=== PATIENT | female | born 1955 | race Caucasian/White ===

== ENCOUNTER 2020-11-18 10:55 | Outpatient (REF) | payer MEDICARE, MEDICAID, SELFPAY ==
--- NOTE | ~2020-11-18 | XR_ITS ---
EXAMINATION: XR CHEST CLINICAL INFORMATION: COPD with exacerbation COMPARISON: Chest 01/24/2009 TECHNIQUE: 2 views of the chest were obtained. FINDINGS: Both lungs are fairly well-expanded and clear of acute process. There is mild peribronchial thickening in both lungs slightly greater right with likely minimal bronchiectasis. The heart size and pulmonary vascularity is normal. No gross bony abnormality seen. XR/XR chest 2V IMPRESSION: No acute infiltrate. Mild peribronchial thickening and minimal bronchiectasis suggestive of bronchitis or bronchial airway disease.
== END 2020-11-18 10:56 | disposition home or self-care (01) ==
LOC: HO.XRAY 10:55
PROVIDERS: PCP Internal Medicine Geriatric Medicine; Visit Provider Internal Medicine Geriatric Medicine
DX: J44.1 Chronic obstructive pulmonary disease with (acute) exacerbation (principal); J44.9 Chronic obstructive pulmonary disease, unspecified
CPT/HCPCS: 71046

== ENCOUNTER → 2020-12-31 14:24 | Outpatient (BNV) | payer MEDICARE, MEDICAID, SELFPAY | PROVIDERS: PCP Internal Medicine Geriatric Medicine; Referring Provider Internal Medicine Geriatric Medicine; Visit Provider Internal Medicine Medical Oncology | DX: D75.1 Secondary polycythemia (principal); F17.210 Nicotine dependence, cigarettes, uncomplicated | CPT/HCPCS: 99203; 99213; 99214 ==

== ENCOUNTER 2021-01-02 10:23 | Outpatient (REF) | payer MEDICARE, MEDICAID, SELFPAY | END 2021-01-02 10:24 | disposition home or self-care (01) | LOC: HO.BBR 10:23 | PROVIDERS: Visit Provider Internal Medicine Medical Oncology | DX: D75.1 Secondary polycythemia (principal) | CPT/HCPCS: 85014; 85018; 99195 ==

== ENCOUNTER → 2021-01-13 10:30 | Outpatient (BNVA) | payer MEDICARE, MEDICAID, SELFPAY | PROVIDERS: PCP Internal Medicine Geriatric Medicine; Visit Provider Internal Medicine | DX: J44.9 Chronic obstructive pulmonary disease, unspecified (principal); D45 Polycythemia vera; F17.200 Nicotine dependence, unspecified, uncomplicated | CPT/HCPCS: 99202 ==

== ENCOUNTER 2021-01-24 14:00 | Outpatient (REF) | payer MEDICARE, MEDICAID, SELFPAY ==
--- NOTE | ~2021-01-24 | CT_ITS ---
EXAMINATION: CT CHEST SCREENING CLINICAL INFORMATION: Smoking history. Current smoker. 40 pack-year history. COMPARISON: Previous chest x-ray October 2020 TECHNIQUE: Multidetector volumetric CT imaging of the chest is performed without contrast using low dose technique. Additional 2-D coronal and sagittal reformatted images and axial 3-D maximum intensity projection (MIP) images are generated on the CT workstation. This CT examination was performed using dose optimization techniques as appropriate, variously including the following: *Automated exposure control *Adjustment of mA and/or kV according to patient size (this includes techniques or standardized protocols for targeted exams where dose is matched to indication/reason for exam; i.e. extremities or head) *Use of iterative reconstruction technique DLP: 241 mGy-cm FINDINGS: LUNGS: There is a 3 mm calcified right lower lobe nodule axial image 168 series 4. MEDIASTINUM: There is evidence of atherosclerotic disease and coronary artery calcification. The mediastinum is otherwise normal. PLEURA: There is no pleural effusion. No pleural mass or thickening. AXILLA: No lymphadenopathy. UPPER ABDOMEN: There is a 2 cm low-attenuation lesion in the upper pole of the left kidney probably representing a cyst. OSSEOUS STRUCTURES: There are degenerative changes of the spine. CT/CT lung screening IMPRESSION: Small calcified pulmonary nodule. Mild atherosclerotic disease and coronary artery calcification. ASSESSMENT: Lung-RADS category 2: Benign. RECOMMENDATION: Annual low-dose chest CT followup recommended.
== END 2021-01-24 14:01 | disposition home or self-care (01) ==
LOC: HO.CT 14:00
PROVIDERS: Visit Provider Physician Assistant Medical
DX: Z12.2 Encounter for screening for malignant neoplasm of respiratory organs (principal); F17.210 Nicotine dependence, cigarettes, uncomplicated
CPT/HCPCS: 71271; G0296

== ENCOUNTER 2021-01-28 10:56 | Outpatient (REF) | payer MEDICARE, MEDICAID, SELFPAY ==
--- NOTE | 2021-01-28 13:23 | PFT_ITS ---
FLOWS: FEV1 55% of predicted at 1.24 L. FVC 55% of predicted at 1.63 L. FEV1 to FVC ratio of 0.76. Positive bronchodilator response. LUNG VOLUMES: Total lung capacity 85% of predicted at 4.07 L. Residual volume 129% of predicted at 2.57 L. Slow vital capacity 54% of predicted at 1.50 L. Expiratory reserve volume 10% of predicted at 0.08 L. Diffusion capacity is moderately decreased, diffusion capacity adjusted to normal after correction for alveolar ventilation. IMPRESSION: No obstructive or restrictive ventilatory defect. Positive bronchodilator response. Increased residual volume suggests air trapping. Decreased expiratory reserve volume suggests extrathoracic restriction likely secondary to abdominal obesity. Declan Valdez MD AP/MODL / [phone]
== END 2021-01-28 10:57 | disposition home or self-care (01) ==
LOC: HO.RESP 10:56
PROVIDERS: Visit Provider Internal Medicine
DX: J44.9 Chronic obstructive pulmonary disease, unspecified (principal); F17.200 Nicotine dependence, unspecified, uncomplicated; D45 Polycythemia vera
CPT/HCPCS: 94060; 94727; 94729

== ENCOUNTER 2021-02-06 10:04 | Outpatient (REF) | payer MEDICARE, MEDICAID, SELFPAY | END 2021-02-06 10:05 | disposition home or self-care (01) | LOC: HO.BBR 10:04 | PROVIDERS: PCP Internal Medicine Geriatric Medicine; Visit Provider Internal Medicine Medical Oncology | DX: D75.1 Secondary polycythemia (principal) | CPT/HCPCS: 85014; 85018; 99195 ==

== ENCOUNTER → 2021-02-12 11:18 | Outpatient (BNVA) | payer MEDICARE, MEDICAID, SELFPAY | PROVIDERS: PCP Internal Medicine Geriatric Medicine; Visit Provider Internal Medicine | DX: J44.9 Chronic obstructive pulmonary disease, unspecified (principal); F17.200 Nicotine dependence, unspecified, uncomplicated | CPT/HCPCS: 99212 ==

== ENCOUNTER 2021-03-10 10:30 | Outpatient (REF) | payer MEDICARE, MEDICAID, SELFPAY | END 2021-03-10 10:31 | disposition home or self-care (01) | LOC: HO.BBR 10:30 | PROVIDERS: Visit Provider Internal Medicine Medical Oncology | DX: D75.1 Secondary polycythemia (principal) | CPT/HCPCS: 85018; 99195 ==

== ENCOUNTER 2021-04-09 10:11 | Outpatient (REF) | payer MEDICARE, MEDICAID, SELFPAY | END 2021-04-09 10:12 | disposition home or self-care (01) | LOC: HO.BBR 10:11 | PROVIDERS: Visit Provider Internal Medicine Medical Oncology | DX: D75.1 Secondary polycythemia (principal) | CPT/HCPCS: 85014; 85018; 99195 ==

== ENCOUNTER 2021-05-15 10:04 | Outpatient (REF) | payer MEDICARE, MEDICAID, SELFPAY | END 2021-05-15 10:05 | disposition home or self-care (01) | LOC: HO.BBR 10:04 | PROVIDERS: Visit Provider Internal Medicine Medical Oncology | DX: D75.1 Secondary polycythemia (principal) | CPT/HCPCS: 85018; 99195 ==

== ENCOUNTER → 2021-10-22 13:08 | Outpatient (BNVA) | payer MEDICARE, MEDICAID, SELFPAY | PROVIDERS: PCP Internal Medicine Geriatric Medicine; Visit Provider Internal Medicine | DX: J44.9 Chronic obstructive pulmonary disease, unspecified (principal); F17.210 Nicotine dependence, cigarettes, uncomplicated | CPT/HCPCS: 99212 ==

== ENCOUNTER 2021-10-23 11:51 | Outpatient (REF) | payer MEDICARE, MEDICAID, SELFPAY | END 2021-10-23 11:52 | disposition home or self-care (01) | LOC: HO.BBR 11:51 | PROVIDERS: Visit Provider Internal Medicine Medical Oncology | DX: D75.1 Secondary polycythemia (principal) | CPT/HCPCS: 85014; 85018; 99195 ==

== ENCOUNTER 2021-11-20 10:53 | Outpatient (REF) | payer MEDICARE, MEDICAID, SELFPAY | END 2021-11-20 10:54 | disposition home or self-care (01) | LOC: HO.BBR 10:53 | PROVIDERS: Visit Provider Internal Medicine Medical Oncology | DX: D75.1 Secondary polycythemia (principal) | CPT/HCPCS: 85018; 99195 ==

== ENCOUNTER 2021-11-26 08:32 | Inpatient (IN) | payer MEDICARE, MEDICAID, SELFPAY ==
--- NOTE | ~2021-11-26 | CT_ITS ---
EXAMINATION: CT HEAD WITHOUT CONTRAST CLINICAL INFORMATION: Severe headache with weakness. COMPARISON: None TECHNIQUE: Contiguous axial imaging was performed from the skull base to vertex without intravenous administration of contrast. Additional 2-D coronal and sagittal reformatted images are generated on the CT workstation and uploaded to PACS. This CT examination was performed using dose optimization techniques as appropriate, variously including the following: *Automated exposure control *Adjustment of mA and/or kV according to patient size (this includes techniques or standardized protocols for targeted exams where dose is matched to indication/reason for exam; i.e. extremities or head) *Use of iterative reconstruction technique DLP: 683 mGy-cm FINDINGS: There is no intracranial hemorrhage, hematoma, or extra-axial fluid collection. The ventricles are normal in size. There is no hydrocephalus, edema, or mass effect. The ambriz-white matter differentiation appears well preserved . There are incidental bilateral basal ganglia calcifications. There is no visible acute territorial infarct or mass lesion. The calvarium appears intact. There is no pneumocephalus or orbital emphysema. The visualized sinuses and middle ears and mastoid air cells show no significant mucosal thickening. There are no air-fluid levels. CT/CT head/brain wo con IMPRESSION: No acute intracranial abnormality.
--- NOTE | ~2021-11-26 | CT_ITS ---
EXAMINATION: CT ANGIOGRAM HEAD CT ANGIOGRAM NECK CLINICAL INFORMATION: Reason for Exam pontine cva, disection? COMPARISON: Same day noncontrast head CT and MRI of the brain. TECHNIQUE: Test bolus sequences followed by intravenous administration 70 mL of Omnipaque 350. Helical imaging was performed in the axial plane from the aortic arch to the skull vertex. Delayed postcontrast imaging of the head was also performed. The data was processed at the mineral technologist's workstation for generation of MIP sequences. Angled MIPs and volume rendered reformatted images were also generated at an offline 3D workstation. Stenoses are assessed in accordance with NASCET criteria unless otherwise indicated. DLP: 1685 mGy-cm This CT examination was performed using dose optimization techniques as appropriate, variously including the following: *Automated exposure control. *Adjustment of mA and/or kV according to patient size (this includes techniques or standardized protocols for targeted exams where dose is matched to indication/reason for exam; i.e. extremities or head). *Use of iterative reconstruction technique. FINDINGS: CT Head: There is no evidence of acute intracranial hemorrhage or edematous territorial infarction. Acute left ventral pontine infarct is not well visualized by CT. A few foci of hypoattenuation in the periventricular and deep white matter are consistent with mild microangiopathy. Jaramillo-white matter differentiation is preserved. The ventricles are normal in size and configuration. No evidence for obstructive hydrocephalus. No abnormal mass effect or midline shift. No extra-axial fluid collections. No pathologic intra-axial enhancement or regional oligemia. No acute soft tissue or osseous abnormalities. The mastoid air cells and paranasal sinuses are clear. Left petrous apex fluid. Periapical lucencies involving the right mandibular incisors. CT Neck: The thyroid gland and remaining cervical soft tissues are within normal limits. Mild multilevel cervical spondylosis. CT Upper Chest: The visualized lung apices and upper mediastinum are within normal limits. Neck CTA: Aortic Arch: Normal contour and caliber. Classic 3 vessel branching pattern of the aortic arch. Great Vessel Origins: No significant stenosis of the branch origins. Right Common Carotid Artery: No focal stenosis or occlusion. Cervical Right Internal Carotid Artery: Calcific atherosclerotic disease of the carotid bulb and proximal internal carotid artery causing less than 50% stenosis. Proximal retropharyngeal course. Left Common Carotid Artery: No focal stenosis or occlusion. Cervical Left Internal Carotid Artery: Calcific atherosclerotic disease of the carotid bulb and proximal internal carotid artery resulting in approximately 60% stenosis. Proximal retropharyngeal course. Cervical Right Vertebral Artery: No focal stenosis or occlusion. Cervical Left Vertebral Artery: No focal stenosis or occlusion. Brain CTA: Intracranial Internal Carotid Arteries: No focal stenosis or occlusion. 3 mm inferiorly projecting aneurysm versus infundibulum of the supraclinoid left ICA (series 6 image 347) Right Anterior Cerebral Artery: Normal A1 segment. Normal opacification of the distal ALON segments. Left Anterior Cerebral Artery: Normal A1 segment. Normal opacification of the distal ALON segments. Anterior Communicating Artery: Normal. Right Middle Cerebral Artery: Normal M1 segment of the MCA without focal stenosis or occlusion. Normal arborization of the distal segments. Left Middle Cerebral Artery: Normal M1 segment of the MCA without focal stenosis or occlusion. Normal arborization of the distal segments. Right Vertebral Artery: Normal V4 segment. Left Vertebral Artery: Normal V4 segment. Basilar Artery: Normal without focal stenosis or occlusion. Normal appearance of the proximal superior cerebellar arteries. Right Posterior Cerebral Artery: Normal P1 segment. Normal opacification of the distal DIGITAL DEVELOPER segments. Left Posterior Cerebral Artery: Normal P1 segment. Normal opacification of the distal DIGITAL DEVELOPER segments. Normal opacification of the superior sagittal, straight, transverse, and sigmoid sinuses. CT/CT angio head neck IMPRESSION: No arterial high-grade stenosis, large vessel occlusion, or dissection in the head or neck. Moderate stenosis of the left ICA origin related to calcified atherosclerotic disease with approximately 60% narrowing. 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
--- NOTE | ~2021-11-26 | MR_ITS ---
EXAMINATION: MR BRAIN WITHOUT CONTRAST CLINICAL INFORMATION: Posterior circulation cerebrovascular accident. Family history of multiple sclerosis. Severe headache. COMPARISON: CT head from 11/26/2021. TECHNIQUE: MRI of the brain was obtained using routine sequences without contrast. FINDINGS: Region of restricted diffusion within the left ventral lara. No evidence of hemorrhagic conversion. Associated T2 FLAIR hyperintensity in this location. No additional restricted diffusion. No evidence of acute or chronic hemorrhagic products on heme-sensitive imaging. Scattered periventricular, deep white matter, and brainstem T2 FLAIR hyperintensities most commonly seen with moderate underlying microangiopathy. Proportional prominence of the ventricles and sulcal spaces without evidence of obstructive hydrocephalus. No abnormal mass effect. No midline shift. Normal appearance of the pituitary gland. Normal positioning of the cerebellar tonsils. Normal arterial and venous vascular flow voids are present. Normal, homogeneous marrow signal. Mild mucosal thickening of the paranasal sinuses. No signal abnormalities within the mastoids. MR/MR head/brain wo con IMPRESSION: 1. Acute infarct of the left ventral lara. No evidence of hemorrhagic conversion. 2. Moderate underlying white matter disease most commonly seen with microangiopathy.
[2021-11-26 08:41] VITALS: BP 149/80; PULSE 86; RESP 18; TEMP 36.6; O2SAT 98; BMI 30.6
--- NOTE | 2021-11-26 08:47 | ECG_ITS ---
Test Reason : stroke Blood Pressure : / mmHG Vent. Rate : 072 BPM Atrial Rate : 072 BPM P-R Int : 176 ms QRS Dur : 072 ms QT Int : 410 ms P-R-T Axes : 057 046 016 degrees QTc Int : 448 ms Normal sinus rhythm Low voltage QRS Cannot rule out Anterior infarct (cited on or before 26-NOV-2021) Abnormal ECG When compared with ECG of 02-OCT-2013 12:22, No significant change was found Referred By: Generic ED Physician Electronically Signed By:DULCE MARIA KIM
[2021-11-26 10:16] LABS: MANUAL DIFF FLAG NO
[2021-11-26 10:22] LABS: Basophils Absolute Auto 0.1 X10*3/uL (0.0-0.2); Basophils Percent Auto 0.4 % (0-2); Eosinophils Absolute Auto 0.1 X10*3/uL (0.0-0.4); Eosinophils Percent Auto 0.6 % (0-4); Hematocrit 41.6 % (37.0-47.0); Imm Gran Abs Auto 0.08 X10*3/uL (0.00-0.03); Imm Gran Pct Auto 0.6 % (0.0-0.4); Lymphocytes Absolute Auto 2.1 X10*3/uL (1.2-4.9); Lymphocytes Percent Auto 14.3 % (20-40); Mean Corpuscular HGB Conc 33.7 g/dl (31.0-35.0); Mean Corpuscular Hemoglobin 31.5 pg (27.0-33.0); Mean Corpuscular Volume 93.7 fL (80.0-98.0); Mean Platelet Volume 9.6 fL (9.4-12.3); Monocytes Absolute Auto 1.4 X10*3/uL (0.1-1.2); Monocytes Percent Auto 9.7 % (2-11); Neutrophils Absolute Auto 10.8 x10*3/uL (2.0-8.3); Neutrophils Percent Auto 74.4 % (45-73); Platelet Count 301 X10*3/uL (160-400); Red Blood Count 4.44 X10*6/uL (4.20-5.50); Red Cell Distribution Width 15.5 % (11.0-16.0); White Blood Count 14.5 X10*3/uL (4.8-10.8)
[2021-11-26 10:33] LABS: Anion Gap 13 (12-20); Blood Urea Nitrogen 10 mg/dL (9-16); Calcium 8.7 mg/dL (8.4-10.2); Carbon Dioxide 26 mmol/L (22-29); Chloride 101 mmol/L (96-108); Creatinine Clr Calc Pharmacy 75.3; Estimated Glomerular Filt Rate > 60; Glucose Random 100 mg/dL (60-115); Potassium 4.4 mmol/L (3.3-5.1); Sodium 136 mmol/L (135-145)
--- NOTE | 2021-11-26 11:45 | PC.NURSE ---
this nurse went and spoke with patient, her last known well was 7pm last night, pt states she felt fine all day, at 7pm she started sneezing and felt a burning sensation to her left eye and began having a headache, pt states she also had trouble ambulating so just went to bed, this morning pt woke and found that her symptoms continued and felt she should be seen. pt also states she thinks she may have shingles to the left flank
[2021-11-26 12:13] VITALS: BP 162/69; PULSE 71; RESP 13; O2SAT 94
--- NOTE | 2021-11-26 12:29 | ED_ITS ---
HPI - General Adult General Chief complaint: General Medical Stated complaint: quest of stroke Time Seen by Provider: 11/26/21 12:29 Source: patient Mode of arrival: ambulatory Limitations: no limitations History of Present Illness HPI narrative: Patient with history of polycythemia vera was anything in last night around 19:00 noticed the headache on the left frontal area then noticed both legs weak at difficulty in walking no facial droop no upper extremity weakness no nausea vomiting patient went to sleep woke up in the morning still feeling her legs were weak but able to ambulate , but any unsteady on her feet, no headache at this time no speech problem no loss of consciousness no seizure patient does not get headaches very often no facial asymmetry no upper extremity weakness Related Data Home Medications Medication Instructions Recorded Confirmed citalopram 20 mg tablet 1 tab PO DAILY 12/31/20 11/26/21 hydrochlorothiazide 25 mg tablet 1 tab PO DAILY 12/31/20 11/26/21 lisinopril 20 mg tablet 1 tab PO DAILY 12/31/20 11/26/21 albuterol sulfate 90 mcg/actuation 2 puff PO Q4-6H PRN Wheezing 01/13/21 11/26/21 aerosol inhaler (Ventolin HFA) tiotropium bromide 1.25 2 puff PO DAILY 01/13/21 11/26/21 mcg/actuation mist for inhalation (Spiriva Respimat) Previous Rx's Medication Instructions Recorded Advair Diskus 250 mcg-50 mcg/dose 1 ea PO BID #60 ea 10/20/21 powder for inhalation (fluticasone propion-salmeterol) Allergies Allergy/AdvReac Type Severity Reaction Status Date / Time No Known Allergies Allergy Verified 10/22/21 13:25 [No Known Allergies*] Review of Systems Review of Systems: Yes all other systems are reviewed and are negative PMF Past Medical History Medical History Colon polyps COPD (chronic obstructive pulmonary disease) Depression Hypertension Personal history of nicotine dependence Polycythemia vera Shortness of breath Smoker Surgical History History of colonoscopy Family History Family History Mother Diabetes Colon cancer Father Diabetes Emphysema lung Social History Social History Household Members: Children Housing: Apartment Are you a primary hourly caregiver to a significant other at home: No Do you presently have visiting nurse or other home services: No Alcohol intake: never Patient Tobacco Use Status: Current everyday Tobacco user Tobacco use type: Cigarette Cigarette Packs Per Day: 1 Years Smoked: 38 (onset 27 ,1ppd x 38yrs, 35+PYH) Use of substances other than those prescribed or required for medical reasons: No Advance Directives: No Advance Directives Information Provided: No service: No Current occupational status: disabled Physical Exam ED Vital Signs: Vital Signs - 24 hr 11/26/21 08:41 11/26/21 12:13 11/26/21 14:54 Temperature 98 F Pulse Rate 86 71 68 Respiratory Rate 18 13 14 Blood Pressure 149/80 H 162/69 H 133/60 Pulse Oximetry 98 94 92 Oxygen Delivery Method Room Air Room Air Room Air 11/26/21 18:00 Temperature 97.8 F Pulse Rate 82 Respiratory Rate 18 Blood Pressure 151/61 H Pulse Oximetry 92 Oxygen Delivery Method Room Air BMI result Body Mass Index 30.6 Appearance: Alert. Oriented X3. No acute distress. Eyes: PERRLA, No Nystagmus ENT: Pharynx normal. Oral Mucosa moist Neck: Normal inspection. Neck supple. CVS: Normal heart rate and rhythm. Pulses normal. Respiratory: No respiratory distress. Equal air entry bilateral, no wheezing/rales/rhonchi Abdomen: Soft and nontender. Bowel sounds are present, no mass palpable, no CVA tenderness Skin: Skin warm and dry. Normal skin color. Normal skin turgor. Extremities: No lower extremity edema. No calf tenderness Neuro: Oriented X 3. No motor deficit. No sensory deficit.No cerebellar signs , cranial nerves II-XII intact unsteady gait when asked to ambulate walking a broad-based NIH Stroke Scale Time: 12:35 Level of Consciousness: Alert Level of Consciousness Questions: Answers both questions correctly Level of Consciousness Commands: Performs both tasks correctly Best Gaze: Normal Visual: No visual loss Facial Palsy: Normal Motor Arm (Right): No drift Motor Arm (Left): No drift Motor Leg (Right): No drift Motor Leg (Left): No drift Limb Ataxia: Present in two limbs (lower extremities) Sensory: Normal Best Language: No aphasia Dysarthia: Normal Extinction and Inattention: No abnormality Score: 2 Medical Decision Making MDM Narrative Medical decision making narrative: 15;15 Patient with sudden onset of headache and weakness of the lower extremities basic workup is negative CT scan head negative for CVA when patient asked to ambulate was very off balance walking broad-based no cerebellar signs as such Romberg sign is negative patient daughter has MS will get MRI to rule ou t post circulation CVA/MS/vertebral dissection 1900 patient with acute ventral pontine infarct per MRI no evidence of hemorrhagic conversion. Case discussed with Dr. Bowser advised to do CTA to rule out vertebral dissection 2000: CT head neck negative for vertebral dissection will admit patient for acute pontine stroke out of the window for tPA patient was given aspirin in the ED Lab Data Lab results reviewed: Yes I reviewed the patient's lab results. Result diagrams: 11/26/21 10:10 11/26/21 10:10 Labs: Lab Results 11/26/21 11/26/21 Range/Units 10:10 10:10 WBC 14.5 H (4.8-10.8) X10*3/uL RBC 4.44 (4.20-5.50) X10*6/uL Hgb 14.0 (12.0-16.0) g/dl Hct 41.6 (37.0-47.0) % MCV 93.7 (80.0-98.0) fL MCH 31.5 (27.0-33.0) pg MCHC 33.7 (31.0-35.0) g/dl RDW 15.5 (11.0-16.0) % Plt Count 301 (160-400) X10*3/uL MPV 9.6 (9.4-12.3) fL Immature Gran % (Auto) 0.6 H (0.0-0.4) % Neut % (Auto) 74.4 H (45-73) % Lymph % (Auto) 14.3 L (20-40) % [place] % (Auto) 9.7 (2-11) % Eos % (Auto) 0.6 (0-4) % Baso % (Auto) 0.4 (0-2) % Lymph # (Auto) 2.1 (1.2-4.9) X10*3/uL [place] # (Auto) 1.4 H (0.1-1.2) X10*3/uL Eos # (Auto) 0.1 (0.0-0.4) X10*3/uL Baso # (Auto) 0.1 (0.0-0.2) X10*3/uL Abs Immat Gran (auto) 0.08 H (0.00-0.03) X10*3/uL Absolute Neuts (auto) 10.8 H (2.0-8.3) x10*3/uL Absolute Nucleated RBC 0.000 (0.0-0.012) X10*3/uL Nucleated RBC % (auto) 0.0 (0.0-0.2) /100WBC Sodium 136 (135-145) mmol/L Potassium 4.4 (3.3-5.1) mmol/L Chloride 101 (96-108) mmol/L Carbon Dioxide 26 (22-29) mmol/L Anion Gap 13 (12-20) BUN 10 (9-16) mg/dL Creatinine 0.71 (0.5-1.4) mg/dL Estim Creat Clear Calc 75.3 Estimated GFR > 60 Random Glucose 100 (60-115) mg/dL Calcium 8.7 D (8.4-10.2) mg/dL Imaging Data MRI - head: Attestation: I personally reviewed and interpreted this imaging study as follows: Radiologist's impression: [place] [id number] Magnetic Resonance Report Signed Patient: Nabila Whitlock MR#: [id number] : 1955 Acct:[id number] Age/Sex: 66 / F ADM Date: 11/26/21 Loc: HO.ED Attending Dr: Ordering Physician: Soto Ruiz MD Date of Service: 11/26/21 Procedure(s): MR head/brain wo [facility] Accession Number(s): [id number] cc: Soto Ruiz MD~ EXAMINATION: MR BRAIN WITHOUT CONTRAST CLINICAL INFORMATION: Posterior circulation cerebrovascular accident. Family history of multiple sclerosis. Severe headache.? COMPARISON: CT head from 11/26/2021.? TECHNIQUE: MRI of the brain was obtained using routine sequences without contrast. FINDINGS: Region of restricted diffusion within the left ventral lara. No evidence of hemorrhagic conversion. Associated T2 FLAIR hyperintensity in this location. No additional restricted diffusion. No evidence of acute or chronic hemorrhagic products on heme-sensitive imaging. Scattered periventricular, deep white matter, and brainstem T2 FLAIR hyperintensities most commonly seen with moderate underlying microangiopathy. Proportional prominence of the ventricles and sulcal spaces without evidence of obstructive hydrocephalus. No abnormal mass effect. No midline shift. Normal appearance of the pituitary gland. Normal positioning of the cerebellar tonsils. Normal arterial and venous vascular flow voids are present. Normal, homogeneous marrow signal. Mild mucosal thickening of the paranasal sinuses. No signal abnormalities within the mastoids. MR/MR head/brain wo con IMPRESSION: 1. Acute infarct of the left ventral lara. No evidence of hemorrhagic conversion. 2. Moderate underlying white matter disease most commonly seen with microangiopathy. CT scan - head: Attestation: I personally reviewed and interpreted this imaging study as follows: Radiologist's impression: [place] [id number] CT Scan Report Signed Patient: Nabila Whitlock MR#: [id number] : 1955 Acct:[id number] Age/Sex: 66 / F ADM Date: 11/26/21 Loc: HO.ED Attending Dr: Ordering Physician: Soto Ruiz MD Date of Service: 11/26/21 Procedure(s): CT angio head neck Accession Number(s): [id number] cc: Soto Ruiz MD~ EXAMINATION: CT ANGIOGRAM HEAD CT ANGIOGRAM NECK CLINICAL INFORMATION: Reason for Exam pontine cva, disection? COMPARISON: Same day noncontrast head CT and MRI of the brain. TECHNIQUE: Test bolus sequences followed by intravenous administration 70 mL of Omnipaque 350. Helical imaging was performed in the axial plane from the aortic arch to the skull vertex. Delayed postcontrast imaging of the head was also performed. The data was processed at the chief radiologic technologist's workstation for generation of MIP sequences. Angled MIPs and volume rendered reformatted images were also generated at an offline 3D workstation. Stenoses are assessed in accordance with NASCET criteria unless otherwise indicated. DLP: 1685 mGy-cm This CT examination was performed using dose optimization techniques as appropriate, variously including the following: *Automated exposure control. *Adjustment of mA and/or kV according to patient size (this includes techniques or standardized protocols for targeted exams where dose is matched to indication/reason for exam; i.e. extremities or head). *Use of iterative reconstruction technique. FINDINGS: CT Head: There is no evidence of acute intracranial hemorrhage or edematous territorial infarction. Acute left ventral pontine infarct is not well visualized by CT. A few foci of hypoattenuation in the periventricular and deep white matter are consistent with mild microangiopathy. Jaramillo-white matter differentiation is preserved. The ventricles are normal in size and configuration. No evidence for obstructive hydrocephalus. No abnormal mass effect or midline shift. No extra-axial fluid collections. No pathologic intra-axial enhancement or regional oligemia. No acute soft tissue or osseous abnormalities. The mastoid air cells and paranasal sinuses are clear. Left petrous apex fluid. Periapical lucencies involving the right mandibular incisors. CT Neck: The thyroid gland and remaining cervical soft tissues are within normal limits. Mild multilevel cervical spondylosis. CT Upper Chest: The visualized lung apices and upper mediastinum are within normal limits. Neck CTA: Aortic Arch: Normal contour and caliber. Classic 3 vessel branching pattern of the aortic arch. Great Vessel Origins: No significant stenosis of the branch origins. Right Common Carotid Artery: No focal stenosis or occlusion. Cervical Right Internal Carotid Artery: Calcific atherosclerotic disease of the carotid bulb and proximal internal carotid artery causing less than 50% stenosis. Proximal retropharyngeal course. Left Common Carotid Artery: No focal stenosis or occlusion. Cervical Left Internal Carotid Artery: Calcific atherosclerotic disease of the carotid bulb and proximal internal carotid artery resulting in approximately 60% stenosis. Proximal retropharyngeal course. Cervical Right Vertebral Artery: No focal stenosis or occlusion. Cervical Left Vertebral Artery: No focal stenosis or occlusion. Brain CTA: Intracranial Internal Carotid Arteries: No focal stenosis or occlusion. 3 mm inferiorly projecting aneurysm versus infundibulum of the supraclinoid left ICA (series 6 image 347) Right Anterior Cerebral Artery: Normal A1 segment. Normal opacification of the distal ALON segments. Left Anterior Cerebral Artery: Normal A1 segment. Normal opacification of the distal ALON segments. Anterior Communicating Artery: Normal. Right Middle Cerebral Artery: Normal M1 segment of the MCA without focal stenosis or occlusion. Normal arborization of the distal segments. Left Middle Cerebral Artery: Normal M1 segment of the MCA without focal stenosis or occlusion. Normal arborization of the distal segments. Right Vertebral Artery: Normal V4 segment. Left Vertebral Artery: Normal V4 segment. Basilar Artery: Normal without focal stenosis or occlusion. Normal appearance of the proximal superior cerebellar arteries. Right Posterior Cerebral Artery: Normal P1 segment. Normal opacification of the distal [employer] segments. Left Posterior Cerebral Artery: Normal P1 segment. Normal opacification of the distal [employer] segments. Normal opacification of the superior sagittal, straight, transverse, and sigmoid sinuses. CT/CT angio head neck IMPRESSION: ? No arterial high-grade stenosis, large vessel occlusion, or dissection in the head or neck. ? Moderate stenosis of the left ICA origin related to calcified atherosclerotic disease with approximately 60% narrowing. ? 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 Dictated By: Hamzah Gonzalez Signed By: <Electronically signed by Hamzah? Carlos in OV> 11/26/212040 DD/ 05 TD/TT:? Secret Code Expert: ECG Data Attestation: I personally reviewed and interpreted this ECG as follows: Interpretation: Normal sinus rhythm heart rate 72 beats per minute poor progression of R-wave no acute ST changes no acute ischemia Critical Care Time Critical Care Time Critical Care Time: Yes Total Critical Care Time: 65 Attestation: I spent 55 minutes of critical care, with interventions, assessments, speaking to patient, consultants, and family. Discharge Plan Discharge Clinical Impression: Acute cerebrovascular accident (CVA) Patient Disposition: Admitted As Inpatient
[2021-11-26 14:54] VITALS: BP 133/60; PULSE 68; RESP 14; O2SAT 92
[2021-11-26 18:00] VITALS: BP 151/61; PULSE 82; RESP 18; TEMP 36.6; O2SAT 92
[2021-11-26] MEDS: iohexoL 350 MG/ML 100 ML INFUS..BTL IV (20:01)
[2021-11-26] MEDS: Aspirin 81 MG TAB.CHEW 324 MG PO (20:42)
--- NOTE | 2021-11-26 22:29 | PHA.MEDREC ---
Pharmacy Consult ? Medication Reconciliation Pharmacy has completed the medication reconciliation.
--- NOTE | 2021-11-26 23:33 | P.HPHOSP_ITS ---
History of Present Illness Date of Service: 11/26/21 Chief Complaint: Headache, weakness This is a 66-year-old female with past medical history of pulse IV Kendal VR undergoes phlebotomy Q 1 month, COPD, who presents to the hospital with complaints of burning behind her eyes, generalized weakness, headache, lighthead ed, and feeling off balance as well as noticed slurred speech by her daughter. Patient reports that her symptoms started on the night prior to presentation to the ED, she initially started with significant amount of sneezing, headache, which then progressed to generalized weakness and left eye burning sensation. She currently has discomfort in her neck area, according to the patient she has no gait issue but her daughter noticed that she has a shuffling gait as well as heavy speech. Patient other mcdaniel denies any chest pain, no palpitations, no shortness of breath, no abdominal pain nausea or vomiting, no diarrhea constipation, no urinary symptoms no lower extremity edema. On arrival to the ED patient hemodynamically stable with a slightly elevated BP Labs are significant for WBC count of 14.5, labs otherwise unremarkable Brain MRI shows acute infarct of the left ventral lara, with no evidence of hemorrhagic conversion Patient given aspirin and will be admitted for further management Review of Systems Review of Systems: Yes all other systems are reviewed and are negative [facility] Medical History Colon polyps COPD (chronic obstructive pulmonary disease) Depression Hypertension Personal history of nicotine dependence Polycythemia vera Shortness of breath Smoker Family History Mother Diabetes Colon cancer Father Diabetes Emphysema lung Surgical History History of colonoscopy Social History Household Members: Children Housing: Apartment Are you a primary adult care provider to a significant other at home: No Do you presently have visiting nurse or other home services: No Alcohol intake: never Patient Tobacco Use Status: Current everyday Tobacco user Tobacco use type: Cigarette Cigarette Packs Per Day: 1 Years Smoked: 38 (onset 27 ,1ppd x 38yrs, 35+PYH) Use of substances other than those prescribed or required for medical reasons: No Advance Directives: No Advance Directives Information Provided: No service: No Current occupational status: disabled Meds Allergies Allergy/AdvReac Type Severity Reaction Status Date / Time No Known Allergies Allergy Verified 10/22/21 13:25 [No Known Allergies*] Home Medications Medication Instructions Recorded Confirmed Last Taken Type citalopram 20 mg tablet 1 tab PO DAILY 12/31/20 11/26/21 Unknown History hydrochlorothiazide 25 mg tablet 1 tab PO DAILY 12/31/20 11/26/21 Unknown History lisinopril 20 mg tablet 1 tab PO DAILY 12/31/20 11/26/21 Unknown History albuterol sulfate 90 mcg/actuation 2 puff PO Q4-6H PRN Wheezing 01/13/21 11/26/21 Unknown History aerosol inhaler (Ventolin HFA) tiotropium bromide 1.25 2 puff PO DAILY 01/13/21 11/26/21 Unknown History mcg/actuation mist for inhalation (Spiriva Respimat) Physical Exam Vital Signs and Narrative: Vital Signs: Last Vital Signs Temp 97.8 F 11/26/21 18:00 Pulse 82 11/26/21 18:00 Resp 18 11/26/21 18:00 BP 151/61 H 11/26/21 18:00 Pulse Ox 92 11/26/21 18:00 O2 Del Method 11/26/21 18:00 BMI result Body Mass Index 30.6 Const: General: cooperative and no acute distress Orientation/consciousness: patient oriented x3 Eyes: General: appearance normal, both eyes and all related structures Resp: Effort & Inspection: normal respiratory effort Auscultation: clear to auscultation bilaterally Cardio: Rate: regular rate Rhythm: regular rhythm GI: Palpation (GI): Soft to palpation Auscultation: normal bowel sounds Skin: General skin exam: no rashes or lesions noted Neuro: Other: Strength is 5/5 in all extremities, there is no aphasia, speech is clear and comprehensible, cranial nerves 2-12 intact General: patient oriented x3 Cognition (Neuro): normal cognition Extrem: General: Yes normal to inspection and Yes no pedal edema Results Labs CBC and Chem 7: 11/27/21 04:20 11/27/21 04:20 Labs: Laboratory Results - last 24 hr 11/26/21 11/26/21 10:10 10:10 MCV 93.7 MCH 31.5 MCHC 33.7 RDW 15.5 Plt Count 301 MPV 9.6 Immature Gran % (Auto) 0.6 H Neut % (Auto) 74.4 H Lymph % (Auto) 14.3 L [place] % (Auto) 9.7 Eos % (Auto) 0.6 Baso % (Auto) 0.4 Lymph # (Auto) 2.1 [place] # (Auto) 1.4 H Eos # (Auto) 0.1 Baso # (Auto) 0.1 Abs Immat Gran (auto) 0.08 H Absolute Neuts (auto) 10.8 H Absolute Nucleated RBC 0.000 Nucleated RBC % (auto) 0.0 Anion Gap 13 Estim Creat Clear Calc 75.3 Estimated GFR > 60 Random Glucose 100 Calcium 8.7 D Imaging Radiologist's Impressions: Impressions Head CT 11/26/21 13:08 IMPRESSION: No acute intracranial abnormality. Brain MRI 11/26/21 17:40 IMPRESSION: 1. Acute infarct of the left ventral lara. No evidence of hemorrhagic conversion. 2. Moderate underlying white matter disease most commonly seen with microangiopathy. Head/Neck CTA 11/26/21 20:06 IMPRESSION: No arterial high-grade stenosis, large vessel occlusion, or dissection in the head or neck. Moderate stenosis of the left ICA origin related to calcified atherosclerotic disease with approximately 60% narrowing. 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 Assessment and Plan (1) Acute cerebrovascular accident (CVA): Status: Acute Plan 66-year-old female who presents to the hospital with headache, well as off balance found to have acute CVA # acute CVA - MRI showed infarct of left ventral lara - patient history of polycythemia vera - start aspirin, high-dose statin - will obtain echocardiogram admit to telemetry -neurology consulted -PT OT # polycythemia vera - aspirin - patient undergoes phlebotomy Q monthly # COPD - not in exacerbation - continue home inhalers # hypertension - elevated - allow for permissive hypertension - hold antihypertensives for next 24 hours DVT prophylaxis: Lovenox Patient will require further evaluation or PT OT, as well as Neurology for acute CVA therefore will require a minimum 2 night hospital stay for further management Quality Stroke Does the patient have a stroke diagnosis?: No VTE Prior VTE?: No VTE Risk Level:: Medical - moderate - high VTE Device Contraindication: Treatment Not Indicated VTE Drug Contraindication: N/A - Med Ordered
[2021-11-26 23:43] VITALS: BP 159/71; PULSE 85; O2SAT 90
[2021-11-27 01:58] LABS: COVID-19 Test Negative (Negative)
[2021-11-27 05:06] LABS: Basophils Absolute Auto 0.1 X10*3/uL (0.0-0.2); Basophils Percent Auto 0.6 % (0-2); Eosinophils Absolute Auto 0.1 X10*3/uL (0.0-0.4); Hematocrit 40.6 % (37.0-47.0); Hemoglobin 13.7 g/dl (12.0-16.0); Imm Gran Abs Auto 0.06 X10*3/uL (0.00-0.03); Imm Gran Pct Auto 0.4 % (0.0-0.4); Lymphocytes Absolute Auto 2.3 X10*3/uL (1.2-4.9); Lymphocytes Percent Auto 15.9 % (20-40); Mean Corpuscular HGB Conc 33.7 g/dl (31.0-35.0); Mean Corpuscular Hemoglobin 32.2 pg (27.0-33.0); Mean Corpuscular Volume 95.3 fL (80.0-98.0); Mean Platelet Volume 10.1 fL (9.4-12.3); Monocytes Absolute Auto 1.5 X10*3/uL (0.1-1.2); Monocytes Percent Auto 10.3 % (2-11); Neutrophils Absolute Auto 10.6 x10*3/uL (2.0-8.3); Neutrophils Percent Auto 71.8 % (45-73); Platelet Count 289 X10*3/uL (160-400); Red Blood Count 4.26 X10*6/uL (4.20-5.50); Red Cell Distribution Width 15.4 % (11.0-16.0); SCAN SMEAR FLAG 1; White Blood Count 14.7 X10*3/uL (4.8-10.8)
[2021-11-27 05:10] LABS: MANUAL DIFF FLAG SCAN
[2021-11-27 05:24] LABS: Anion Gap 12 (12-20); Blood Urea Nitrogen 10 mg/dL (9-16); Calcium 8.5 mg/dL (8.4-10.2); Carbon Dioxide 26 mmol/L (22-29); Chloride 102 mmol/L (96-108); Creatinine Clr Calc Pharmacy 76.4; Estimated Glomerular Filt Rate > 60; Glucose Random 89 mg/dL (60-115); Potassium 4.2 mmol/L (3.3-5.1); Sodium 136 mmol/L (135-145)
[2021-11-27 05:25] LABS: Cholesterol 173 mg/dL; HDL Cholesterol 50 mg/dL; LDL Cholesterol Calculated 102 mg/dl; Triglycerides 108 mg/dL
[2021-11-27 05:46] LABS: SLIDE REVIEW VERIFIED
[2021-11-27 05:55] VITALS: BP 141/76; PULSE 71; O2SAT 90
--- NOTE | 2021-11-27 07:00 | CA_ITS ---
Transthoracic Echocardiogram Patient (Last, First, Middle): Nabila Whitlock M Gender: Female Date of : 1955 Age: 66 Procedure Date: 11/27/2021 Procedure Type: Transthoracic Echocardiogram Location: ER Height: 157.48 cm Weight: 75.75 kg BSA: 1.77 m2 Heart Rate: 79 bpm BP: 121 / 80 mmHg Senior Major Gifts Officer: SB Referring MD: Lionel Doherty MD Symptoms: cva Study Quality: Fair/Contrast ECG Rhythm: Sinus Conclusions: - The left ventricular systolic function is normal. The visually estimated ejection fraction is between 60-65%. - No obvious valvular pathology seen on this study. Findings Procedure Information Contrast agent, definity, is being given per protocol without apparent complications. Left Ventricle Normal left ventricular cavity size. There is normal left ventricular wall thickness. The left ventricular systolic function is normal. The visually estimated ejection fraction is between 60-65%. There is no evidence of regional wall motion abnormalities. Diastolic function is normal for age. Right Ventricle Normal right ventricular cavity size and systolic function. Atria Both atria are normal in size. Interatrial shunt cannot be excluded. Aortic Valve The aortic valve was not well visualized. There is no aortic valve stenosis. There is no aortic valve regurgitation. Mitral Valve The mitral valve appears normal. There is no mitral valve regurgitation. There is no mitral valve stenosis. Pulmonic Valve The pulmonic valve is likely normal. Tricuspid Valve There is no tricuspid valve regurgitation. Tricuspid regurgitation envelope is inadequate for calculation of right ventricular systolic pressure. Great Vessels The asc aorta is normal in size. Venous The inferior vena cava is normal in size and collapses greater than 50% with inspiration. Pericardium/Pleural There is no evidence of pericardial effusion. Prior Study Comparison No prior study available for comparison. Recommendations, Care & Conclusions No obvious valvular pathology seen on this study. Recommend contrast study to evaluate intracardiac shunting. Measurements 2D Linear Measurements IVSd: 0.82 0.6-0.9/0.6-1.0 cm LVIDd: 4.60 3.9-5.3/4.2-5.9 cm LVIDd Index: 2.60 2.4-3.2/2.2-3.1 cm/m2 LVIDs: 3.31 2.0-3.6 cm LVPWd: 0.91 0.7-1.1 cm LA Diam: 4.10 2.7-3.8/3.0-4.0 cm LAIDs Index: 2.32 1.5-2.3 cm/m2 LV Mass: 162.18 67-162/88-224 g LV Mass Index: 91.63 43-95/49-115 g/m2 LVOT Diam: 1.90 3.0+(-)1.3 cm 2D Systolic Function EF 4C: 64.00 >55% EF 2C: 78.90 >55% Mitral Valve MV Pk E: 0.81 MV PK A: 0.97 MV Decel Time: 181.00 E/A: 0.80 E'Lateral: 6.64 E'Medial: 5.33 E/E' Med: 15.30 E/E' Lat: 12.30 PHT: 53.00 MVA PHT: 4.15 Decel Clark: 4.50 Aortic Valve AoV Pk Marcial: 1.24 AoV Mn Marcial: 0.77 AoV VTI: 0.24 AoV Pk Grad: 6.00 Aov Mn Grad: 3.00 AMINATA Cont.VTI: 2.29 LVOT LVOT Pk Marcial: 1.09 LVOT Mn Marcial: 0.65 LVOT VTI: 0.19 LVOT Pk Grad: 5.00 LVOT Mn Grad: 2.00 LVOT Diam: 1.90 LVOT Area: 2.84 Diastolic Function MV Pk E: 0.81 MV Pk A: 0.97 E/A: 0.80 E'Medial: 5.33 E/E' Med: 15.30 E' Laterial: 6.64 E/E' Lat: 12.30 Right Ventricle TAPSE (mm): 19.40 TVS' Marcial: 12.90 Tricuspid Valve RA Press: 3.00 Great Vessels Aorta Sinus of Valsalva: 2.70 2.0-3.5 cm Ao Asc: 2.60 2.1-3.4 cm Pulmonary Valve PV Pk Marcial: 1.10 Peak PV Grad: 5.00 Updated in Other Vendor System with Status of Final Burt [place] MD electronically signed on 11/27/2021 11:50:41 AM with status of Final
[2021-11-27 07:56] VITALS: BP 141/76; PULSE 71; O2SAT 90
--- NOTE | 2021-11-27 08:00 | PC.NURSE ---
pt's daughter ben ([phone]) called [facility] and was updated on pt status.
[2021-11-27 08:06] VITALS: BP 121/80; PULSE 71; RESP 16; TEMP 36.9; O2SAT 93
--- NOTE | 2021-11-27 09:00 | PC.NURSE ---
bedside echocardiogram is being done at this time.
[2021-11-27 09:47] VITALS: BP 146/76; PULSE 74; RESP 12; TEMP 36.4; O2SAT 94
[2021-11-27] MEDS: Escitalopram Oxalate 10 MG TABLET PO (09:49)
[2021-11-27] MEDS: Aspirin Enteric Coated 81 MG TABLET.DR PO (09:49)
[2021-11-27] MEDS: Atorvastatin Calcium 80 MG TABLET PO (09:50)
[2021-11-27] MEDS: Enoxaparin Sodium 40 MG/0.4 ML SYRINGE SUBCUT (09:50)
--- NOTE | 2021-11-27 10:10 | PC.NURSE ---
dr. fernandez at bedside pt/daughter aware of plan of care.
--- NOTE | 2021-11-27 10:10 | MHC.CM.PN ---
Met with patient in regards to discharge planning. Patient lives with her 19 year old grandson, ambulates independently and had no services prior to coming to the hospital. Physical therapy and occupational therapy evals are pending. Patient does not feel she will need any services at d/c. PCP verified. HCP completed, signed, and witnessed. Original given to patient. Copy placed in chart. IMM explained and signed. Patient received 2 Pfizer vaccines. No boosters. Patient's daughter will transport patient home when medically stable. Continue to monitor for d/c needs.
--- NOTE | 2021-11-27 10:33 | PC.NURSE ---
dr. mcqueen (stroke rn) at bedside, pt/daughter aware of plan of care.
--- NOTE | 2021-11-27 11:14 | MHC.STROKE ---
Addendum entered by Shelby Arambula RN 11/28/21 10:57: LATE ENTRY FOR 11/28/21, I VERIFIED WITH JERICA BERG AIRCRAFT RESTORER THAT PATIENT WILL BE RECEIVING VNA SERVICES FROM [facility]. Original Note: 11/26/21 0832 WALK-IN WITH C/O [facility] AND TAM WEAKNESS THAT STARTED ON 11/25/21 AT 1900. SHE HAD A CTH , MRI AND CTA H/N. MRI IS + FOR LEFT VENTRAL SONAL ISCHEMIC STROKE. SHE WAS OUT OF THE WINDOW FOR TPA-ALTEPLASE. SHE DID NOT HAVE A LVO. SHE PASSED NURSING SWALLOW SCREEN AT 1999 PRIOR TO PO MEDICATIONS, THIS WAS CONFIRMED. TODAY I MET WITH HER DAUGHTER JOSE AND HER AND WE DISCUSSED HER DIAGNOSIS AND MRI RESULTS. WELL HER PMH OF POLYCYTHEMIA VERA (I DID NOTIFY DR CARVAJAL OF THE PATIENT NEW STROKE DIAGNOSIS). WE REVIEWED THE STROKE EDUCATION BOOKLET, POWERPOINT SLIDES, SCREEN SHOT OF THE MRI AND LOCATION OF THE STROKE. I REVIEWED THE TIMELINE, THE MEDICATIONS, LABS AND ANSWERED ALLL OF THEIR QUESTIONS. I REVIEWED THE CASE WITH DR GLEZ, HE WAS ROUNDING WHILE I WAS IN THE ROOM, I ALSO DISCUSSED THE CASE WITH DR BIRD. I WILL CONTINUE TO FOLLOW.
[2021-11-27] MEDS: Fluticasone/Vilanterol 100/25 BLST.W.DEV 1 PUFF INHALE (11:30)
[2021-11-27 11:33] VITALS: PULSE 84; RESP 18; O2SAT 96
--- NOTE | 2021-11-27 13:32 | PM.NEUROCN ---
History of Present Illness Data of Consult Service Date: 11/27/21 Primary Care Provider: Georgi Alarcon MD [facility] Reason for consult: Stroke 66 years old woman with polycythemia vera came to hospital with new onset of unsteadiness headache and neck pain. She said that it started with excessive sneezing that did not make any sense. Her workup revealed a small stroke and this consultation was requested. There was no associated double vision loss of vision or speech or language difficulty. She did not have any neck manipulation recently. Review of Systems Review of Systems: No recent cold or flu-like illness PMFSH Past Medical History Medical History Colon polyps COPD (chronic obstructive pulmonary disease) Depression Hypertension Personal history of nicotine dependence Polycythemia vera Shortness of breath Smoker Family History Family History Mother Diabetes Colon cancer Father Diabetes Emphysema lung Surgical History Surgical History History of colonoscopy Social History Social History Household Members: Children Housing: Apartment Are you a primary patient care coordinator to a significant other at home: No Do you presently have visiting nurse or other home services: No Alcohol intake: never Patient Tobacco Use Status: Current everyday Tobacco user Tobacco use type: Cigarette Cigarette Packs Per Day: 1 Years Smoked: 38 (onset 27 ,1ppd x 38yrs, 35+PYH) Use of substances other than those prescribed or required for medical reasons: No Advance Directives: Yes Advance Directives on File: Yes Advance Directives Date on File: 11/27/21 service: No Current occupational status: disabled Meds Allergies Allergy/AdvReac Type Severity Reaction Status Date / Time No Known Allergies Allergy Verified 10/22/21 13:25 [No Known Allergies*] Active Medications: Current Medications Acetaminophen (Acetaminophen 325 Mg Tablet) 650 mg PO Q6H PRN PRN Reason: Pain, Mild (Pain Scale 1-3) Albuterol Sulfate (Albuterol Sulfate 90 Mcg 8 Gm Inhaler) 2 puff INHALE Q4H PRN PRN Reason: Wheezing Aspirin (Aspirin Enteric Coated 81 Mg Tablet.) 81 mg PO DAILY [facility] Last Admin: 11/27/21 09:49 Dose: 81 mg Atorvastatin Calcium (Atorvastatin Calcium 80 Mg Tablet) 80 mg PO DAILY [facility] Last Admin: 11/27/21 09:50 Dose: 80 mg Enoxaparin Sodium (Enoxaparin Sodium 40 Mg/0.4 Ml Syringe) 40 mg SUBCUT Q24H [facility] Last Admin: 11/27/21 09:50 Dose: 40 mg Escitalopram Oxalate (Escitalopram Oxalate 10 Mg Tablet) 10 mg PO DAILY [facility] Last Admin: 11/27/21 09:49 Dose: 10 mg Fluticasone/Vilanterol (Fluticasone/Vilanterol 100/25 Blst.W.Dev) 1 puff INHALE RDAILY [facility] Last Admin: 11/27/21 11:30 Dose: 1 puff Ondansetron HCl (Ondansetron Hcl 4 Mg/2 Ml Vial) 4 mg IVPUSH Q8H PRN PRN Reason: Nausea and Vomiting Tiotropium [place] (Tiotropium [place] 18 Mcg Cap.W.Dev) 1 puff INHALE RDAILY [facility] Last Admin: 11/27/21 11:30 Dose: 1 puff Home Medications Medication Instructions Recorded Confirmed Last Taken Type citalopram 20 mg tablet 1 tab PO DAILY 12/31/20 11/26/21 Unknown History hydrochlorothiazide 25 mg tablet 1 tab PO DAILY 12/31/20 11/26/21 Unknown History lisinopril 20 mg tablet 1 tab PO DAILY 12/31/20 11/26/21 Unknown History albuterol sulfate 90 mcg/actuation 2 puff PO Q4-6H PRN Wheezing 01/13/21 11/26/21 Unknown History aerosol inhaler (Ventolin HFA) tiotropium bromide 1.25 2 puff PO DAILY 01/13/21 11/26/21 Unknown History mcg/actuation mist for inhalation (Spiriva Respimat) Physical Exam Vital Signs: Vital Signs: Last Vital Signs Temp 97.6 F 11/27/21 09:47 Pulse 84 11/27/21 11:33 Resp 18 11/27/21 11:33 BP 146/76 H 11/27/21 09:47 Pulse Ox 94 11/27/21 09:47 O2 Del Method 11/27/21 09:47 BMI result Body Mass Index 30.6 Neuro: Other: She was alert and awake with normal spontaneity of speech fluency comprehension and affect. Pupils were equal and reactive to light and extraocular muscles were intact. Visual lobo are full to threat. Face was symmetrical. Tongue was midline. There was no pronator drift. [id number] testing revealed mild ataxia with left hand. Deep tendon reflexes are 1+ with flexor plantars. Speech was normal. Results Labs CBC & Chem 7: 11/27/21 04:20 11/27/21 04:20 Labs: Short CBC 11/27/21 Range/Units 04:20 WBC 14.7 H (4.8-10.8) X10*3/uL Hgb 13.7 (12.0-16.0) g/dl Hct 40.6 (37.0-47.0) % Plt Count 289 (160-400) X10*3/uL BMP 11/27/21 04:20 Sodium 136 Potassium 4.2 Chloride 102 Carbon Dioxide 26 BUN 10 Creatinine 0.70 Calcium 8.5 MRI of brain revealed a left pontine exchange mechanic artery ischemic infarct, chronic microangiopathic changes in lara and cerebral hemispheres. CTA of brain and neck did not reveal any significant vascular lesion Assessment and Plan (1) Acute cerebrovascular accident (CVA): Status: Acute 66 years old woman with polycythemia vera, chronic microangiopathic ischemic changes of brain, and hypertension who presented with acute left pontine ischemic infarct. She did not qualify for intravenous tPA type of treatment and there was no reason for intra-arterial treatment. Mainstay of management is control of vascular risk factors and blood pressure. Anti-platelet agent, statin, and blood pressure management is recommended. She should avoid alcohol completely. Procedures Date of Service Date of Service: 11/27/21
[2021-11-27 14:04] VITALS: BP 145/64; PULSE 81; RESP 18; TEMP 36.4; O2SAT 94
--- NOTE | 2021-11-27 14:51 | P.DS_ITS ---
DS: Providers Provider Date of Service: 11/27/21 Date of admission: 11/26/21 23:31 Date of discharge: 11/27/21 Primary care physician: Georgi Alarcon MD Consults: 11/26/21 23:31 Consult to Neurology Routine Consulting Provider: [facility] Reason for consultation: cva Has provider been notified: Yes DS: Diagnosis Discharge Diagnosis (1) Acute cerebrovascular accident (CVA): Status: Acute DS: Summary Hospital Course Hospital Course: 66-year-old female with past medical history of pulse IV Kendal VR undergoes phlebotomy Q 1 month, COPD, who presents to the hospital with complaints of burning behind her eyes, generalized weakness, headache, lightheaded, and feeling off balance as well as noticed slurred speech by her daughter.? Patient reports that her symptoms started on the night prior to presentation to the ED, she initially started with significant amount of sneezing, headache, which then progressed to generalized weakness and left eye burning sensation.? MRI of brain demonstrated acute infarct of the left ventral lara; CTA head and neck failed to demonstrate any high-grade stenosis large vessel occlusion or dissection. She was seen in consultation by Neurology who recommended aggressive blood pressure controlled antiplatelet agents and hyperlipidemia along with risk factor modification to include smoke cessation. PT screen opted for home with services. She will be discharged home with her daughter. All questions answered Time Spent with Patient Time attestation: Total time spent providing and/or coordinating discharge services: Discharge coordination time: Greater than 30 minutes Quality: Safe Use of Opioids Does Pt have an Active Cancer Diagnosis on the Problem List?: No Quality: Stroke Does the patient have a stroke diagnosis?: Yes Reason for No Anti-thrombotic at DC: N/A - Med Ordered Reason for No Anticoagulant at DC: Not indicated Reason Not Initiating IV-Tpa: Not indicated Reason for No Anti-thrombotic by Day Two: Not indicated Reason for No Statin at DC: N/A - Med Ordered Physical Exam Vital Signs: Vital Signs: Last Vital Signs Temp 97.6 F 11/27/21 14:04 Pulse 81 11/27/21 14:04 Resp 18 11/27/21 14:04 BP 145/64 H 11/27/21 14:04 Pulse Ox 94 11/27/21 14:04 O2 Del Method 11/27/21 14:04 BMI result Body Mass Index 30.6 Const: Other: Awake alert oriented x3 no acute distress Resp: Other: Clear to auscultation bilaterally no rales rhonchi or wheezes Cardio: Other: No S4; positive S1-S2; no S3 murmurs rubs or gallops Neuro: Other: Cranial nerves 2-12 grossly intact as tested. Motor is 5/5 all extremities with a slight right pronator drift. Sensation intact. Cognition appropriate Extrem: Other: No edema bilaterally DS: Data Data Completed and Pending Labs on day of discharge: Laboratory Results - last 24 hr 11/27/21 11/27/21 11/27/21 01:36 04:20 04:20 WBC 14.7 H RBC 4.26 Hgb 13.7 Hct 40.6 MCV 95.3 MCH 32.2 MCHC 33.7 RDW 15.4 Plt Count 289 MPV 10.1 Immature Gran % (Auto) 0.4 Neut % (Auto) 71.8 Lymph % (Auto) 15.9 L Benzie % (Auto) 10.3 Eos % (Auto) 1.0 Baso % (Auto) 0.6 Lymph # (Auto) 2.3 Benzie # (Auto) 1.5 H Eos # (Auto) 0.1 Baso # (Auto) 0.1 Abs Immat Gran (auto) 0.06 H Absolute Neuts (auto) 10.6 H Absolute Nucleated RBC 0.000 Nucleated RBC % (auto) 0.0 Smear Tech's Comments VERIFIED Sodium 136 Potassium 4.2 Chloride 102 Carbon Dioxide 26 Anion Gap 12 BUN 10 Creatinine 0.70 Estim Creat Clear Calc 76.4 Estimated GFR > 60 Random Glucose 89 Calcium 8.5 Triglycerides Cholesterol LDL Cholesterol, Calc HDL Cholesterol COVID-19 ([facility]) Negative COVID-19 Clin Com See Note 11/27/21 04:20 WBC RBC Hgb Hct MCV MCH MCHC RDW Plt Count MPV Immature Gran % (Auto) Neut % (Auto) Lymph % (Auto) Benzie % (Auto) Eos % (Auto) Baso % (Auto) Lymph # (Auto) Benzie # (Auto) Eos # (Auto) Baso # (Auto) Abs Immat Gran (auto) Absolute Neuts (auto) Absolute Nucleated RBC Nucleated RBC % (auto) Smear Tech's Comments Sodium Potassium Chloride Carbon Dioxide Anion Gap BUN Creatinine Estim Creat Clear Calc Estimated GFR Random Glucose Calcium Triglycerides 108 Cholesterol 173 LDL Cholesterol, Calc 102 HDL Cholesterol 50 COVID-19 ([facility]) COVID-19 Clin Com Discharge Plan Discharge Patient Disposition: Home Health Service Discharge Diagnosis: Left pontine touch up carver artery ischemic infarct Referrals: [facility] [Outside] - 1 Week Name,MD Georgi [Primary Care Provider] - 1 Week Discharge Medications: New atorvastatin 80 mg Tablet 80 mg PO DAILY Qty: 30 0RF aspirin 81 mg Tablet,Delayed Release (Dr/Ec) 81 mg PO DAILY Qty: 30 0RF Continued fluticasone propion-salmeterol [Advair Diskus] 250-50 mcg/dose blister with device 1 ea PO BID Qty: 60 5RF lisinopril 20 mg tablet 1 tab PO DAILY citalopram 20 mg tablet 1 tab PO DAILY hydrochlorothiazide 25 mg tablet 1 tab PO DAILY albuterol sulfate [Ventolin HFA] 90 mcg/actuation HFA aerosol inhaler 2 puff PO Q4-6H PRN (Reason: Wheezing) Spiriva Respimat 1.25 mcg/actuation mist 2 puff PO DAILY Discharge Orders: Discharge Order (Routine); Ordered 11/27/21 Ordered By: Tj Krause Diet: Advance to usual diet Activity on Discharge: As tolerated Stand Alone Forms: Patient Portal Discharge page Care Plan Goals: Start Lipitor 80 mg daily and aspirin 81 mg daily. Follow-up via PCP 2 weeks Health Concerns: Do your best to cut down and ultimately quit smoking Plan of Treatment: Physical therapy and alf with his you at home Assessment: See discharge summary
--- NOTE | 2021-11-27 14:56 | W.MHC.F2F ---
Service Date Service Date: 11/27/21 Encounter Date of encounter: 11/27/21 Encounter: Acute hospitalization Reasons for Services Signs and symptoms assessed: Acute pontine stroke with ataxia Reason for fci: neurological assessment, medication treatment and teach disease management Reason for physical therapy: home safety and mobility and gait/transfer training Reason for occupational therapy: home safety and mobility Homebound: Leaving the home is medically contraindicated at this time without the asist of a device and/or another person due th the listed conditions above and below. Reason homebound: unsteady gait / fall risk and poor balance / fall risk Certification: Based on the above findings, I certify that this patient is confined to the home and needs intermittent fci care, physical therapy and/or speech therapy, or continues to need occupational therapy. The patient is under my care, and I have initiated the establishment of the plan of care. The patient will be followed by a physician who will periodically review the plan of care.
== END 2021-11-27 14:57 | disposition home health service (06) | DRG 66 ==
LOC: HO.ED 12:29 → HO.EDOVER 23:34
PROVIDERS: Emergency Medicine Emergency Medical Services; Admitting Provider Internal Medicine; Emergency Provider Internal Medicine; PCP Internal Medicine Geriatric Medicine; Visit Provider Hospitalist
DX: I63.29 Cerebral infarction due to unspecified occlusion or stenosis of other precerebral arteries (principal); D45 Polycythemia vera; Z86.010 Personal history of colon polyps; Z20.822 Contact with and (suspected) exposure to COVID-19; F17.210 Nicotine dependence, cigarettes, uncomplicated; Z71.6 Tobacco abuse counseling; Z79.82 Long term (current) use of aspirin; Z79.899 Other long term (current) drug therapy
CPT/HCPCS: 36415; 70450; 70496; 70498; 70551; 80048; 80061; 85025; 87635; 93005; 93306; 94640; 97162; 97166; 99285; J1650; Q9957; Q9967

== ENCOUNTER 2022-02-03 12:48 | Outpatient (REF) | payer MEDICARE, MEDICAID, SELFPAY | END 2022-02-03 12:49 | disposition home or self-care (01) | LOC: HO.BBR 12:48 | PROVIDERS: Visit Provider Internal Medicine Medical Oncology | DX: Z13.89 Encounter for screening for other disorder (principal) | CPT/HCPCS: 85014; 85018; 99195 ==

== ENCOUNTER 2022-02-03 13:38 | Outpatient (REF) | payer MEDICARE, MEDICAID, SELFPAY ==
--- NOTE | ~2022-02-03 | XR_ITS ---
EXAMINATION: XR LUMBOSACRAL SPINE WITH OBLIQUES CLINICAL INFORMATION: Chronic lower back pain. COMPARISON: Lumbar spine radiographs dated 03/17/2017. TECHNIQUE: AP, lateral, coned down, and bilateral oblique views of the lumbar spine. FINDINGS: The lumbar lordosis is maintained. Minimal grade 1 anterolisthesis of L4 on L5, increased when compared to the prior examination. No acute fracture. No loss of vertebral body height. Multilevel loss of intervertebral disc height with endplate degenerative changes, most prominent at L1-L2, increased when compared to the prior examination. Lower lumbar spine facet arthropathy, increased when compared to the prior examination. No concerning lytic or blastic osseous lesion. Atherosclerotic calcifications. XR/XR lumbar spine 4V min IMPRESSION: Minimal grade 1 anterolisthesis of L4 on L5, new/increased when compared to the radiographs from 2017. Multilevel degenerative disc disease and facet arthropathy, increased when compared to the prior radiographs.
== END 2022-02-03 13:39 | disposition home or self-care (01) ==
LOC: HO.XRAY 13:38
PROVIDERS: PCP Internal Medicine Geriatric Medicine; Visit Provider Internal Medicine Geriatric Medicine
DX: M54.50 Low back pain, unspecified (principal); G89.29 Other chronic pain; M79.604 Pain in right leg; M79.605 Pain in left leg
CPT/HCPCS: 72110; 85018; 99195

== ENCOUNTER → 2022-06-29 10:48 | Outpatient (BNVA) | payer MEDICARE, MEDICAID, SELFPAY | PROVIDERS: PCP Internal Medicine Geriatric Medicine; Visit Provider Internal Medicine | DX: J44.9 Chronic obstructive pulmonary disease, unspecified (principal); R06.02 Shortness of breath; F17.210 Nicotine dependence, cigarettes, uncomplicated; Z86.73 Personal history of transient ischemic attack (TIA), and cerebral infarction without residual deficits | CPT/HCPCS: 94010; 99212 ==

== ENCOUNTER 2022-07-16 09:42 | Outpatient (REF) | payer MEDICARE, MEDICAID, SELFPAY ==
--- NOTE | ~2022-07-16 | CT_ITS ---
EXAMINATION: CT CHEST SCREENING CLINICAL INFORMATION: Current smoker with 44 pack year history COMPARISON: 01/24/2021 TECHNIQUE: Multidetector volumetric CT imaging of the chest is performed without contrast using low dose technique. Additional 2D coronal and sagittal reformatted images and axial 3D maximum intensity projection (MIP) images are generated on the CT workstation. This CT examination was performed using dose optimization techniques as appropriate, variously including the following: *Automated exposure control *Adjustment of mA and/or kV according to patient size (this includes techniques or standardized protocols for targeted exams where dose is matched to indication/reason for exam; i.e. extremities or head) *Use of iterative reconstruction technique DLP: 44 mGy-cm FINDINGS: LUNGS: Mild upper lobe dominant centrilobular emphysema. Diffuse mild bronchial wall thickening without bronchiectasis. Stable calcified granuloma, right lower lobe. No suspicious pulmonary nodules. There are a few patchy groundglass opacities scattered throughout both lungs. MEDIASTINUM: Normal heart size. Great vessels normal caliber. No pericardial effusion. No mediastinal or hilar lymphadenopathy. CORONARY ARTERY CALCIFICATION: Present. PLEURA: There is no pleural effusion. No pleural mass or thickening. AXILLA: No lymphadenopathy. UPPER ABDOMEN: Unremarkable OSSEOUS STRUCTURES: Unremarkable. CT/CT lung screening IMPRESSION: * No evidence of pulmonary malignancy. * Mild emphysema and chronic airways disease. * There are a few scattered patchy groundglass opacities, which may represent small areas of subsegmental atelectasis and/or bronchiolitis ASSESSMENT: Lung-RADS category 2: Benign RECOMMENDATION: Routine annual low-dose CT screening in 12 months.
== END 2022-07-16 09:43 | disposition home or self-care (01) ==
LOC: HO.CT 09:42
PROVIDERS: PCP Internal Medicine Geriatric Medicine; Visit Provider Physician Assistant Medical
DX: Z12.2 Encounter for screening for malignant neoplasm of respiratory organs (principal); F17.210 Nicotine dependence, cigarettes, uncomplicated
CPT/HCPCS: 71271

== ENCOUNTER 2022-07-20 10:54 | Outpatient (REF) | payer MEDICARE, MEDICAID, SELFPAY | END 2022-07-20 10:55 | disposition home or self-care (01) | LOC: HO.BBR 10:54 | PROVIDERS: Visit Provider Internal Medicine Medical Oncology | DX: D75.1 Secondary polycythemia (principal) | CPT/HCPCS: 85018; 99195 ==

== ENCOUNTER 2022-08-02 15:26 | Emergency (ER) | payer MEDICARE, MEDICAID, SELFPAY ==
--- NOTE | 2022-08-02 15:30 | ED.SKABFB ---
HPI - Skin/Abscess/Foreign Bdy General Chief complaint: Wound/Laceration <NOLAN Alvarez Last Filed: 08/02/22 15:33> Stated complaint: cut finger <NOLAN Alvarez - Last Filed: 08/02/22 15:33> Time Seen by Provider: 08/02/22 15:43 <NOLAN Alvarez Last Filed: 08/02/22 15:33> Source: patient <NOLAN Montero Last Filed: 08/02/22 17:46> Mode of arrival: ambulatory <NOLAN Montero Last Filed: 08/02/22 17:46> Limitations: no limitations <NOLAN Montero Last Filed: 08/02/22 17:46> History of Present Illness HPI narrative: 67 yo female presents to the ER for evaluation after she cut the tip of her right 4th finger off while cutting red peppers on a mandolin today. She immediately cleaned out the wound with soap, water then H2O2. She reports ongoing bleeding. She is on baby ASA for history of CVA in October 2021. She is not on anticoagulation. She reports a throbbing pain at the tip of the finger. No numbness, tingling. No other injuries. <NOLAN Montero - Last Filed: 08/02/22 17:46> MD complaint: laceration <NOLAN Montero - Last Filed: 08/02/22 17:46> Onset (ago): minute(s) <NOLAN Montero Last Filed: 08/02/22 17:46> Tetanus up to date: unsure <NOLAN Montero - Last Filed: 08/02/22 17:46> Location: R hand <NOLAN Montero Last Filed: 08/02/22 17:46> Severity: moderate <NOLAN Montero Last Filed: 08/02/22 17:46> Severity scale (1-10): 6 <NOLAN Montero Last Filed: 08/02/22 17:46> Quality: aching and constant <NOLAN Montero Last Filed: 08/02/22 17:46> Pain Consistency: constant <NOLAN Montero - Last Filed: 08/02/22 17:46> Exacerbating factors: palpation and movement <NOLAN Montero - Last Filed: 08/02/22 17:46> Context: other (cut with mandolin) <NOLAN Montero Last Filed: 08/02/22 17:46> Associated symptoms: denies other symptoms <NOLAN Montero - Last Filed: 08/02/22 17:46> Treatments prior to arrival: bandages <NOLAN Montero - Last Filed: 08/02/22 17:46> Related Data Home medications: Home Medications Medication Instructions Recorded Confirmed hydrochlorothiazide 25 mg tablet 1 tab PO DAILY 12/31/20 07/10/22 lisinopril 20 mg tablet 1 tab PO DAILY 12/31/20 07/10/22 albuterol sulfate 90 mcg/actuation 2 puff PO Q4-6H PRN Wheezing 01/13/21 07/10/22 aerosol inhaler (Ventolin HFA) aspirin 81 mg tablet,delayed 81 mg PO DAILY 01/02/22 07/10/22 release (Adult Low Dose Aspirin) atorvastatin 80 mg tablet (Lipitor) 80 mg PO DAILY 01/02/22 07/10/22 sertraline 100 mg tablet 100 mg PO DAILY 07/10/22 07/10/22 Previous Rx's Medication Instructions Recorded tiotropium bromide 1.25 2 puff PO DAILY #4 grams 06/29/22 mcg/actuation mist for inhalation (Spiriva Respimat) Advair Diskus 250 mcg-50 mcg/dose 1 ea PO BID #60 ea 07/10/22 powder for inhalation (fluticasone propion-salmeterol) amoxicillin 875 mg-potassium 1 tab PO BID #10 tabs 08/02/22 clavulanate 125 mg tablet <NOLAN Alvarez Last Filed: 08/02/22 15:33> Allergies/Adverse reactions: Allergies Allergy/AdvReac Type Severity Reaction Status Date / Time No Known Allergies Allergy Verified 07/10/22 10:36 [No Known Allergies*] <NOLAN Alvarez Last Filed: 08/02/22 15:33> Review of Systems Review of Systems: Yes all other systems are reviewed and are negative <NOLAN Montero - Last Filed: 08/02/22 17:46> [facility] Past Medical History Medical History: Medical History Colon polyps COPD (chronic obstructive pulmonary disease) Depression Hypertension Personal history of nicotine dependence Polycythemia vera Shortness of breath Smoker Stroke <NOLAN Alvarez - Last Filed: 08/02/22 15:33> Surgical History: Surgical History History of colonoscopy <NOLAN Alvarez - Last Filed: 08/02/22 15:33> Family History Family History: Family History Mother Diabetes Colon cancer Father Diabetes Emphysema lung <NOLAN Alvarez - Last Filed: 08/02/22 15:33> Social History Social History: Social History Household Members: Children Housing: Apartment Are you a primary critical care unit nurse to a significant other at home: No Do you presently have visiting nurse or other home services: No Alcohol intake: never Patient Tobacco Use Status: Current everyday Tobacco user Tobacco use type: Cigarette Cigarette Packs Per Day: 1 Years Smoked: 38 (onset 27 ,1ppd x 38yrs, 35+PYH) Advance Directives: Yes Advance Directives on File: Yes Advance Directives Date on File: 11/27/21 service: No Current occupational status: disabled <NOLAN Alvarez - Last Filed: 08/02/22 15:33> Physical Exam Vital Signs: Vital Signs: Last Vital Signs Temp 98.3 F 08/02/22 15:31 Pulse 81 08/02/22 15:31 Resp 18 08/02/22 15:31 BP 139/75 08/02/22 15:31 Pulse Ox 98 08/02/22 15:31 O2 Del Method Room Air 08/02/22 15:31 BMI result Body Mass Index 27.1 <NOLAN Alvarez - Last Filed: 08/02/22 15:33> Vital Signs: Last Vital Signs Temp 98.3 F 08/02/22 15:31 Pulse 81 08/02/22 15:31 Resp 18 08/02/22 15:31 BP 139/75 08/02/22 15:31 Pulse Ox 98 08/02/22 15:31 O2 Del Method Room Air 08/02/22 15:31 BMI result Body Mass Index 27.1 <NOLAN Montero - Last Filed: 08/02/22 17:46> Appearance: Alert. Oriented X3. No acute distress. HEENT: normal inspection CVS: Normal heart rate and rhythm. Pulses normal. Respiratory: No respiratory distress. Skin: Skin warm and dry. Normal skin color. Normal skin turgor. No rashes. Extremities: distal tip of the 4th right finger with a 1cm complete avulsion involving the tip and part of the nail. active ozzing. FROM of the digit. no visible bone Neuro: Oriented X 3. No motor deficit. No sensory deficit. <NOLAN Montero - Last Filed: 08/02/22 17:46> Course Course Course Narrative: This is an RME: Additional HPI, ROS, PE not included below will be deferred to primary provider. 67-year-old female presents for evaluation of laceration to right 4th distal aspect of finger status post cutting herself with a mandoline. This happened accidentally. Denies numbness and tingling. Patient takes aspirin. Unclear if tetanus status. In physical exam actively bleeding laceration to right 4th distal aspect of finger with dressing in place. Radial pulses intact. Plan at this time tetanus shot. Evaluation in minor care <NOLAN Alvarez - Last Filed: 08/02/22 15:33> Medications Administered Discontinued Medications Generic Name Dose Route Start Last Admin Trade Name Freq PRN Reason Stop Dose Admin Diphtheria/Tetanus/Acell Pertussis 0.5 ml 08/02/22 15:32 08/02/22 16:12 Diphth,Pertus(Acell),Tet Adult 0.5 Ml Syringe IM 08/02/22 15:33 0.5 ml .ONCE ONE Administration Lidocaine/Epinephrine 10 ml 08/02/22 16:36 08/02/22 17:05 Lidocaine Hcl 2% Pf/Epi 1:200 10 Ml Vial INFILTRATI 08/02/22 16:37 10 ml ONCE ONE Administration Lidocaine/Epinephrine 10 ml 08/02/22 16:36 08/02/22 17:06 Lidocaine Hcl 2% Pf/Epi 1:200 20 Ml Vial INFILTRATI 08/02/22 16:37 Not Given ONCE ONE <NOLAN Alvarez - Last Filed: 08/02/22 15:33> Medications Administered Discontinued Medications Generic Name Dose Route Start Last Admin Trade Name Layo PRN Reason Stop Dose Admin Diphtheria/Tetanus/Acell Pertussis 0.5 ml 08/02/22 15:32 08/02/22 16:12 Diphth,Pertus(Acell),Tet Adult 0.5 Ml Syringe IM 08/02/22 15:33 0.5 ml .ONCE ONE Administration Lidocaine/Epinephrine 10 ml 08/02/22 16:36 08/02/22 17:05 Lidocaine Hcl 2% Pf/Epi 1:200 10 Ml Vial INFILTRATI 08/02/22 16:37 10 ml ONCE ONE Administration Lidocaine/Epinephrine 10 ml 08/02/22 16:36 08/02/22 17:06 Lidocaine Hcl 2% Pf/Epi 1:200 20 Ml Vial INFILTRATI 08/02/22 16:37 Not Given ONCE ONE <NOLAN Montero - Last Filed: 08/02/22 17:46> Medical Decision Making Medical Decision Making MDM Narrative: 67-year-old female presents to the ER for evaluation of a avulsion of the tip of the right 4th finger. Active bleeding on arrival. Patient was soaked in 2% lidocaine with epinephrine with improvement in the bleeding. Prior to this she bled through Surgicel that was applied. Once the bleeding was slowed skin glue was used with good effect. A Steri-Strip was placed to provide additional compression and support to the finger tip. A dry sterile dressing was applied. Wound care was discussed. Will start on prophylactic antibiotics. Stable for discharge home. <NOLAN Montero - Last Filed: 08/02/22 17:46> Differential Diagnosis Differential Diagnoses: The differential diagnosis associated with the presentation includes <NOLAN Montero Last Filed: 08/02/22 17:46> avulsion, laceration, open fracture <NOLAN Montero - Last Filed: 08/02/22 17:46> External Record Review External record reviewed: Outpatient record, Prior outpatient labs and Prior outpatient radiology <NOLAN Montero - Last Filed: 08/02/22 17:46> Prescription Management I considered prescription management with: Pain Medication and Antibiotic <NOLAN Montero Last Filed: 08/02/22 17:46> Procedures Laceration Laceration 1: Site: hand <NOLAN Montero Last Filed: 08/02/22 17:46> Side (If applicable): right <NOLAN Montero Last Filed: 08/02/22 17:46> Size (cm): 1 <NOLAN Montero Last Filed: 08/02/22 17:46> Description: other (complete avulsion) <NOLAN Montero Last Filed: 08/02/22 17:46> Local Anesthetic: lidocaine 2% and with epi <NOLAN Montero Last Filed: 08/02/22 17:46> Pre-repair: irrigated extensively and deep structures intact <NOLAN Montero Last Filed: 08/02/22 17:46> Skin layer closed with: other (skin glue and steri strip) <NOLAN Montero - Last Filed: 08/02/22 17:46> Critical Care Time Critical Care Time Critical Care Time: No <NOLAN Montero - Last Filed: 08/02/22 17:46> Discharge Plan Discharge Clinical Impression: Avulsion of fingertip <NOLAN Alvarez Last Filed: 08/02/22 15:33> Patient Disposition: Home, Self-Care <NOLAN Alvarez Last Filed: 08/02/22 15:33> Instructions: Skin Avulsion (ED) <NOLAN Alvarez Last Filed: 08/02/22 15:33> Additional Instructions: Start taking the prescribed antibiotic 1st thing tomorrow morning. Your given 1st dose today in the ER. Elevate her hand when possible to help with pain and throbbing. Take Tylenol or Motrin around the clock as needed for pain. Skin glue and Steri-Strips were used to stop the bleeding and provide a protective dressing on the avulsion. These will fall off on their own, usually within 1 week, do not peel them off. Do not get the wound wet. Follow-up with your doctor. If you develop new or worsening symptoms call 911 or come back to the ER for further evaluation. <NOLAN Alvarez - Last Filed: 08/02/22 15:33> Prescriptions: New amoxicillin-pot clavulanate 875-125 mg tablet 1 tab PO BID Qty: 10 0RF No Action fluticasone propion-salmeterol [Advair Diskus] 250-50 mcg/dose blister with device 1 ea PO BID Qty: 60 0RF lisinopril 20 mg tablet 1 tab PO DAILY hydrochlorothiazide 25 mg tablet 1 tab PO DAILY atorvastatin [Lipitor] 80 mg tablet 80 mg PO DAILY aspirin [Adult Low Dose Aspirin] 81 mg tablet,delayed release (DR/EC) 81 mg PO DAILY sertraline 100 mg Tablet 100 mg PO DAILY albuterol sulfate [Ventolin HFA] 90 mcg/actuation HFA aerosol inhaler 2 puff PO Q4-6H PRN (Reason: Wheezing) Spiriva Respimat 1.25 mcg/actuation mist 2 puff PO DAILY Qty: 4 0RF <NOLAN Alvarez - Last Filed: 08/02/22 15:33> Referrals: Name,MD Georgi [Primary Care Provider] - <NOLAN Alvarez - Last Filed: 08/02/22 15:33>
[2022-08-02 15:31] VITALS: BP 139/75; PULSE 81; RESP 18; TEMP 36.8; O2SAT 98; BMI 27.1
[2022-08-02] MEDS: Diphth,Pertus(ACell),Tet Adult 0.5 ML SYRINGE IM (16:12)
[2022-08-02] MEDS: Amoxicillin/Potassium Clav 875 MG TABLET PO (17:52)
[2022-08-02] MEDS: Acetaminophen 325 MG TABLET 975 MG PO (17:52)
== END 2022-08-02 18:26 | disposition home or self-care (01) ==
PROVIDERS: Emergency Provider Emergency Medicine; PCP Internal Medicine Geriatric Medicine
DX: S61.210A Laceration without foreign body of right index finger without damage to nail, initial encounter (principal); S60.410A Abrasion of right index finger, initial encounter; W26.9XXA Contact with unspecified sharp object(s), initial encounter; Y93.9 Activity, unspecified; Y92.9 Unspecified place or not applicable; Y99.9 Unspecified external cause status; Z23 Encounter for immunization
CPT/HCPCS: 12001; 90471; 90715; 99283; 99284

== ENCOUNTER 2022-10-20 09:54 | Outpatient (REF) | payer MEDICARE, MEDICAID, SELFPAY | END 2022-10-20 09:55 | disposition home or self-care (01) | LOC: HO.BBR 09:54 | PROVIDERS: PCP Internal Medicine Geriatric Medicine; Visit Provider Internal Medicine Medical Oncology | DX: D75.1 Secondary polycythemia (principal) | CPT/HCPCS: 85018; 99195 ==

== ENCOUNTER 2022-12-28 11:18 | Outpatient (AMB) | payer MEDICARE, SELFPAY ==
--- NOTE | 2022-12-28 11:25 | MHC.OFFVIS ---
Intake Vital Signs 12/28/22 11:30 Height 5 ft 2 in Weight 167 lb BMI 30.5 BP 114/60 Blood Pressure Location Lt brachial Position Sitting Pulse 91 Pulse Source Pulse Oximeter Pulse Oximetry (%) 93 Oxygen Delivery Method Room Air Intake Visit Reasons: COPD Intake Note: pt is here for follow up and states she is had a problem a couple of weeks ago that required a round of prednisone, and now she still has phelgm in chest. Plastic Technician Required: No Allergies No Known Allergies [No Known Allergies*] Allergy (Verified 12/28/22 11:56) Medication List - Last Reconciled 12/28/22 by Corazon Posey MD Advair Diskus 250-50 mcg/dose (fluticasone propion-salmeterol) 1 ea PO BID NS albuterol sulfate 90 mcg/actuation (Ventolin HFA) 2 puffs PO Q4-6H PRN aspirin (Adult Low Dose Aspirin) 81 mg PO DAILY atorvastatin (Lipitor) 80 mg PO DAILY hydrochlorothiazide 1 tab PO DAILY lisinopril 1 tab PO DAILY sertraline 100 mg PO DAILY tiotropium bromide 1.25 mcg/actuation (Spiriva Respimat) 2 puffs PO DAILY trazodone 50 mg PO BEDTIME Do you need a note to return to daycare/school/sports/work: No HPI COPD HPI Details This 67 years old very pleasant female, with diagnosis of severe chronic obstructive pulmonary disease and continued smoking, Comes after 6 months for follow-up. A few weeks ago she had exacerbation of COPD and was treated with 5 days course of prednisone. She is still smoking 1 pack of cigarettes a day. She tells me that she has done everything to quit smoking but can not. She uses Advair 250-50 twice a day and Spiriva Respimat 2 inhalation daily. Also uses albuterol inhaler once or twice a day. She say is that she remains quite active, goes out of the house even for density. She does get short of breath on exertion but this is her normal baseline. She is eating well and has put on some weight since last visit. Patient also has polycythemia vera, has been getting full a but me every 3 months. She knows that continued smoking is 1 of the factors contributing to her polycythemia . Location Respimat 2 inhalation daily [facility] Medical History Colon polyps COPD (chronic obstructive pulmonary disease) Depression Hypertension Personal history of nicotine dependence Polycythemia vera Shortness of breath Smoker Stroke Surgical History History of colonoscopy Family History Mother Diabetes Colon cancer Father Diabetes Emphysema lung Social History Household Members: Children Housing: Apartment Are you a primary congregational care pastor to a significant other at home: No Do you presently have visiting nurse or other home services: No Alcohol intake: never Patient Tobacco Use Status: Current everyday Tobacco user Tobacco use type: Cigarette Cigarette Packs Per Day: 1 Years Smoked: 38 (onset 27 ,1ppd x 38yrs, 35+PYH) Advance Directives Date on File: 11/27/21 service: No Current occupational status: disabled Review of Systems Const All systems reviewed & are unremarkable except as noted in HPI and below ENT Reports no additional complaints Card Denies chest pain, Denies irregular heart rhythm and Denies leg edema Resp Reports as per HPI GI Reports no additional complaints Reports no additional complaints Musc Reports no additional complaints and Reports abnormal gait (Slightly on stable , and she has to be careful, after her stroke.) Skin/Breast Reports system reviewed and no additional complaints, except as documented Neuro Reports no additional complaints and Reports abnormal gait (Slightly on stable , and she has to be careful, after her stroke.) Psych Reports anxiety and Reports depression (Mild, mostly recovered.) Endo Reports no additional complaints Aller/Immun Reports no additional complaints Physical Exam Vital Signs: Last Vital Signs Pulse 91 12/28/22 11:30 BP 114/60 12/28/22 11:30 Pulse Ox 93 12/28/22 11:30 Oxygen Delivery Method Room Air 12/28/22 11:30 BMI result Body Mass Index 30.5 Seems somewhat depressed, no respiratory distress, Const General: comfortable, no acute distress, alert and awake Orientation/consciousness: patient oriented x3 HEENT Head: Yes normal to inspection General nose exam: No nasal polyps present and No nasal discharge present Face and sinus: Yes sinuses nontender Mouth: oropharynx normal Throat: Yes posterior oropharynx normal Eyes General: appearance normal, both eyes and all related structures Neck Neck: Yes normal visual inspection, Yes no lymphadenopathy, Yes trachea midline and Yes no JVD Thyroid: Thyroid normal Chest Chest palpation & inspection: normal inspection of the chest, normal palpation of entire chest wall and no tenderness Resp Other: Percussion note resonant, breath sounds are distant with prolonged. expiratory phase No rhonchi or wheezes are heard today. Cardio Palpation: normal PMI Rate: regular rate Rhythm: regular rhythm Heart sounds: no gallops and no murmurs GI Palpation (GI): Soft to palpation, nontender, No hepatosplenomegaly present and no masses Auscultation: normal bowel sounds Back/Spine/Pelvis Thoracic/Lumbar Spine: thoracic and lumbar spine normal to inspection Skin General skin exam: no rashes or lesions noted Neuro General: patient oriented x3, gait normal (Normal except that she is slightly on stable if she moves fast) and no focal motor deficits Cranial nerves: Yes CN's II-XII intact bilaterally Extrem General: Yes normal to inspection, Yes no clubbing, cyanosis or edema and Yes no calf tenderness Psych Mental Status: mental status grossly normal and other (Slightly depressed) Speech and movement: Normal speech and movement present Assessment & Plan Assessment & Plan (1) Smoker: Comment: (onset 26, 1ppd x 38yrs, 35+PYH - smoking cessation counseled - in LDCT screening program) Again had a good discussion with patient and I impressed on her that she has to quit completely. Risks of continued smoking explained. Told that her COPD will continue to get worse, if she does not quit smoking She has tried nicotine gum and nicotine patches without much effect . I had a good discussion with her again and advised her to at least start cutting down the number of cigarettes. Code(s): F17.200 - Nicotine dependence, unspecified, uncomplicated (2) COPD (chronic obstructive pulmonary disease): Comment: (Moderate/Severe COPD, smoking related - Confirmed by pulmonary function test. A good response to bronchodilator therapy is consistent with Asthma/Copd overlap syndrome. TX : Continue Spiriva Respimat 2 inhalations daily. And Advair 250-50 1 inhalation b.i.d. . Scripts are renewed . Use albuterol HFA 2 puffs Q 4-6 hours p.r.n., but to avoid any excessive use. Code(s): J44.9 - Chronic obstructive pulmonary disease, unspecified (3) Polycythemia vera: Comment: (dx 2017 - likely secondary to Smoking/COPD - Lately having full but may Q 3 months. Being followed by hematology service. Code(s): D45 - Polycythemia vera Medications: New fluticasone propion-salmeterol 250-50 mcg/dose (Advair Diskus) 1 inh inhalation Q12H 60 ea 5RF copd 30 days Changed From tiotropium bromide 1.25 mcg/actuation (Spiriva Respimat) 2 puffs PO DAILY 4 grams 2RF To tiotropium bromide 1.25 mcg/actuation (Spiriva Respimat) 2 puffs PO DAILY 4 grams 5RF copd 30 days Coding Level of Care Code Est Pt Level 3 (59451) Diagnoses Smoker F17.200 COPD (chronic obstructive pulmonary disease) J44.9 Polycythemia vera D45
[2022-12-28 11:30] VITALS: BP 114/60; PULSE 91; O2SAT 93; BMI 30.5
== END 2022-12-28 11:58 | disposition home or self-care (01) ==
PROVIDERS: PCP Internal Medicine Geriatric Medicine; Visit Provider Internal Medicine
DX: F17.200 Nicotine dependence, unspecified, uncomplicated (principal); J44.9 Chronic obstructive pulmonary disease, unspecified; D45 Polycythemia vera
CPT/HCPCS: 99213

== ENCOUNTER → 2022-12-28 11:18 | Outpatient (BNVA) | payer MEDICARE, SELFPAY | PROVIDERS: PCP Internal Medicine Geriatric Medicine; Visit Provider Internal Medicine | DX: J44.9 Chronic obstructive pulmonary disease, unspecified (principal); R06.02 Shortness of breath; D45 Polycythemia vera; F17.210 Nicotine dependence, cigarettes, uncomplicated | CPT/HCPCS: 99212 ==

== ENCOUNTER 2023-01-26 09:52 | Outpatient (REF) | payer MEDICARE, SELFPAY | END 2023-01-26 09:53 | disposition home or self-care (01) | LOC: HO.BBR 09:52 | PROVIDERS: PCP Internal Medicine Geriatric Medicine; Visit Provider Internal Medicine Medical Oncology | DX: D75.1 Secondary polycythemia (principal) | CPT/HCPCS: 85018; 99195 ==

== ENCOUNTER 2023-05-05 11:56 | Outpatient (REF) | payer MEDICARE, SELFPAY ==
--- NOTE | ~2023-05-05 | MM_ITS ---
EXAMINATION: MM SCREENING DIGITAL BREAST TOMOSYNTHESIS, BILATERAL CLINICAL INFORMATION: Screening. Asymptomatic. COMPARISON: Mammography: This study is compared with prior exams dating back to 2013. TECHNIQUE: Digital breast tomosynthesis is performed in both the craniocaudal and mediolateral oblique views along with computer-aided detection (CAD). Synthesized 2D images are generated from the tomosynthesis. FINDINGS: The breasts are almost entirely fatty (ACR BI-RADS breast composition Category a). There are no significant masses, abnormal calcifications, or other abnormalities. MM/MM tomosynthesis screening BI IMPRESSION: No mammographic evidence of malignancy. ASSESSMENT: BI-RADS BI-RADS 1 - Negative RECOMMENDATION: Routine annual mammography screening. 1 year F/U This examination should not preclude the clinical evaluation of a suspicious palpable abnormality. This patient's information was entered into a reminder system with a target due date for their next mammogram.
== END 2023-05-05 11:57 | disposition home or self-care (01) ==
LOC: HO.MAMMO 11:56
PROVIDERS: PCP Internal Medicine Geriatric Medicine; Visit Provider Internal Medicine Geriatric Medicine
DX: Z12.31 Encounter for screening mammogram for malignant neoplasm of breast (principal)
CPT/HCPCS: 77063; 77067

== ENCOUNTER → 2023-05-05 12:00 | Outpatient (BNV) | payer MEDICARE, SELFPAY | PROVIDERS: PCP Internal Medicine Geriatric Medicine; Visit Provider Radiology Diagnostic Radiology | DX: Z12.31 Encounter for screening mammogram for malignant neoplasm of breast (principal) | CPT/HCPCS: 77063; 77067 ==

== ENCOUNTER 2023-07-05 11:19 | Outpatient (AMB) | payer MEDICARE, SELFPAY ==
--- NOTE | 2023-07-05 11:23 | MHC.OFFVIS ---
Intake Vital Signs 07/05/23 11:28 Height 5 ft 2 in Weight 165 lb 3 oz BMI 30.2 BP 126/88 Blood Pressure Location Lt brachial Position Sitting Respiration 18 Pulse 90 Pulse Source Pulse Oximeter Pulse Oximetry (%) 94 Oxygen Delivery Method Room Air Intake Visit Reasons: COPD Allergies No Known Allergies [No Known Allergies*] Allergy (Verified 07/05/23 11:28) Medication List - Last Reconciled 07/05/23 by Corazon Posey MD albuterol sulfate 90 mcg/actuation (Ventolin HFA) 2 puffs PO Q4-6H PRN aspirin (Adult Low Dose Aspirin) 81 mg PO DAILY atorvastatin (Lipitor) 80 mg PO DAILY fluticasone propion-salmeterol 250-50 mcg/dose (Advair Diskus) 1 inh inhalation Q12H 30 days hydrochlorothiazide 1 tab PO DAILY lisinopril 1 tab PO DAILY sertraline 100 mg PO DAILY tiotropium bromide 1.25 mcg/actuation (Spiriva Respimat) 2 puffs PO DAILY 30 days trazodone 50 mg PO BEDTIME Do you need a note to return to daycare/school/sports/work: No HPI COPD HPI Details This 68 years old very pleasant female is here for 6 months follow-up. For her COPD she has had no acute exacerbation. But did have a few bouts of common cold. She continues to use her inhalers regularly. Smoking is down to 1 or 2 cigarettes a day and mostly when she is around the other members of the family who were smokers. Now that her smoking is much less she definitely feels better. [facility] Medical History Stroke Colon polyps Depression Hypertension Personal history of nicotine dependence COPD (chronic obstructive pulmonary disease) Smoker Polycythemia vera Shortness of breath Surgical History History of colonoscopy Family History Mother Diabetes Colon cancer Father Diabetes Emphysema lung Social History Household Members: Children Housing: Apartment Are you a primary career development coordinator to a significant other at home: No Do you presently have visiting nurse or other home services: No Alcohol intake: never Patient Tobacco Use Status: Current everyday Tobacco user Tobacco use type: Cigarette Cigarette Packs Per Day: 1 Years Smoked: 38 (onset 27 ,1ppd x 38yrs, 35+PYH) Advance Directives Date on File: 11/27/21 service: No Current occupational status: disabled Review of Systems Const All systems reviewed & are unremarkable except as noted in HPI and below ENT Reports no additional complaints Card Denies chest pain, Denies irregular heart rhythm and Denies leg edema Resp Reports as per HPI GI Reports no additional complaints Reports no additional complaints Musc Reports no additional complaints and Reports abnormal gait (Slightly on stable , and she has to be careful, after her stroke.) Skin/Breast Reports system reviewed and no additional complaints, except as documented Neuro Reports no additional complaints and Reports abnormal gait (Slightly on stable , and she has to be careful, after her stroke.) Psych Reports anxiety and Reports depression (Mild, mostly recovered.) Endo Reports no additional complaints Aller/Immun Reports no additional complaints Physical Exam Vital Signs: Last Vital Signs Pulse 90 07/05/23 11:28 Resp 18 07/05/23 11:28 BP 126/88 07/05/23 11:28 Pulse Ox 94 07/05/23 11:28 Oxygen Delivery Method Room Air 07/05/23 11:28 BMI result Body Mass Index 30.2 Seems somewhat depressed, no respiratory distress, Const General: comfortable, no acute distress, alert and awake Orientation/consciousness: patient oriented x3 HEENT Head: Yes normal to inspection General nose exam: No nasal polyps present and No nasal discharge present Face and sinus: Yes sinuses nontender Mouth: oropharynx normal Throat: Yes posterior oropharynx normal Eyes General: appearance normal, both eyes and all related structures Neck Neck: Yes normal visual inspection, Yes no lymphadenopathy, Yes trachea midline and Yes no JVD Thyroid: Thyroid normal Chest Chest palpation & inspection: normal inspection of the chest, normal palpation of entire chest wall and no tenderness Resp Other: Percussion note resonant, breath sounds are distant with prolonged. expiratory phase No rhonchi or wheezes are heard today. Cardio Palpation: normal PMI Rate: regular rate Rhythm: regular rhythm Heart sounds: no gallops and no murmurs GI Palpation (GI): Soft to palpation, nontender, No hepatosplenomegaly present and no masses Auscultation: normal bowel sounds Back/Spine/Pelvis Thoracic/Lumbar Spine: thoracic and lumbar spine normal to inspection Skin General skin exam: no rashes or lesions noted Neuro General: patient oriented x3, gait normal (Normal except that she is slightly on stable if she moves fast) and no focal motor deficits Cranial nerves: Yes CN's II-XII intact bilaterally Extrem General: Yes normal to inspection, Yes no clubbing, cyanosis or edema and Yes no calf tenderness Psych Mental Status: mental status grossly normal and other (Slightly depressed) Speech and movement: Normal speech and movement present Assessment & Plan Assessment & Plan (1) COPD (chronic obstructive pulmonary disease): Comment: (Moderate/Severe COPD, smoking related - Confirmed by pulmonary function test. A good response to bronchodilator therapy is consistent with Asthma/Copd overlap syndrome. Code(s): J44.9 - Chronic obstructive pulmonary disease, unspecified Plan: TX : Continue Spiriva Respimat 2 inhalations daily. And Advair 250-50 1 inhalation b.i.d. . Scripts are renewed . Use albuterol HFA 2 puffs Q 4-6 hours p.r.n., but to avoid any excessive use. (2) Smoker: Comment: (onset 26, 1ppd x 38yrs, 35+PYH - smoking cessation counseled - in LDCT screening program) Claims that she has cut down to only 1 or 2 cigarettes a day. Code(s): F17.200 - Nicotine dependence, unspecified, uncomplicated Plan: COUNSELLED . HAD a good discussion with patient stressed that she has to quit completely. Risks of continued smoking explained. Told that her COPD will continue to get worse, if she does not quit smoking (3) Polycythemia vera: Comment: (dx 2017 - likely secondary to Smoking/COPD - Lately has had no phlebotomy . Lost CBC in January 2000 23 hemoglobin 16 / hematocrit 48. Being followed by hematology service. Code(s): D45 - Polycythemia vera Plan: as above Medications: Changed From albuterol sulfate 90 mcg/actuation (Ventolin HFA) 2 puffs PO Q4-6H PRN Wheezing To albuterol sulfate 90 mcg/actuation (Ventolin HFA) 2 puffs PO Q4-6H PRN 8.5 grams 3RF Wheezing 30 days Refilled fluticasone propion-salmeterol 250-50 mcg/dose (Advair Diskus) 1 inh inhalation Q12H 60 ea 5RF copd 30 days tiotropium bromide 1.25 mcg/actuation (Spiriva Respimat) 2 puffs PO DAILY 4 grams 5RF copd 30 days Coding Level of Care Code Est Pt Level 3 (79288) Diagnoses COPD (chronic obstructive pulmonary disease) J44.9 Smoker F17.200 Polycythemia vera D45
[2023-07-05 11:28] VITALS: BP 126/88; PULSE 90; RESP 18; O2SAT 94; BMI 30.2
--- NOTE | 2023-07-05 11:43 | MHC.OFFVIS ---
Intake Vital Signs 07/05/23 11:28 Height 5 ft 2 in Weight 165 lb 3 oz BMI 30.2 BP 126/88 Blood Pressure Location Lt brachial Position Sitting Respiration 18 Pulse 90 Pulse Source Pulse Oximeter Pulse Oximetry (%) 94 Oxygen Delivery Method Room Air Intake Visit Reasons: COPD Allergies No Known Allergies [No Known Allergies*] Allergy (Verified 07/05/23 11:28) Medication List - Last Reconciled 07/05/23 by Corazon Posey MD albuterol sulfate 90 mcg/actuation (Ventolin HFA) 2 puffs PO Q4-6H PRN aspirin (Adult Low Dose Aspirin) 81 mg PO DAILY atorvastatin (Lipitor) 80 mg PO DAILY fluticasone propion-salmeterol 250-50 mcg/dose (Advair Diskus) 1 inh inhalation Q12H 30 days hydrochlorothiazide 1 tab PO DAILY lisinopril 1 tab PO DAILY sertraline 100 mg PO DAILY tiotropium bromide 1.25 mcg/actuation (Spiriva Respimat) 2 puffs PO DAILY 30 days trazodone 50 mg PO BEDTIME PFSH Medical History Stroke Colon polyps Depression Hypertension Personal history of nicotine dependence COPD (chronic obstructive pulmonary disease) Smoker Polycythemia vera Shortness of breath Surgical History History of colonoscopy Family History Mother Diabetes Colon cancer Father Diabetes Emphysema lung Social History Household Members: Children Housing: Apartment Are you a primary nursing care attendant to a significant other at home: No Do you presently have visiting nurse or other home services: No Alcohol intake: never Patient Tobacco Use Status: Current everyday Tobacco user Tobacco use type: Cigarette Cigarette Packs Per Day: 1 Years Smoked: 38 (onset 27 ,1ppd x 38yrs, 35+PYH) Advance Directives Date on File: 11/27/21 service: No Current occupational status: disabled Physical Exam Vital Signs: Last Vital Signs Pulse 90 07/05/23 11:28 Resp 18 07/05/23 11:28 BP 126/88 07/05/23 11:28 Pulse Ox 94 07/05/23 11:28 Oxygen Delivery Method Room Air 07/05/23 11:28 BMI result Body Mass Index 30.2 Assessment & Plan Assessment & Plan (1) COPD (chronic obstructive pulmonary disease): Comment: (Moderate/Severe COPD, smoking related - Confirmed by pulmonary function test. A good response to bronchodilator therapy is consistent with Asthma/Copd overlap syndrome. Code(s): J44.9 - Chronic obstructive pulmonary disease, unspecified Plan: Continue Advair 250-51 inhalation b.i.d. Continue Spiriva Respimat 1.25 mcg per actuation 2 inhalations daily Albuterol HFA 2 puffs Q 4-6 hours p.r.n.. (2) Smoker: Comment: (onset 26, 1ppd x 38yrs, 35+PYH - smoking cessation counseled - in LDCT screening program) Claims that she has cut down to only 1 or 2 cigarettes a day. Code(s): F17.200 - Nicotine dependence, unspecified, uncomplicated Plan: Patient counseled again, to quit smoking completely. (3) Polycythemia vera: Comment: (dx 2017 - likely secondary to Smoking/COPD - Lately has had no phlebotomy . Lost CBC in January 2000 23 hemoglobin 16 / hematocrit 48. Code(s): D45 - Polycythemia vera Plan: Being followed by hematology service. Medications: Changed From albuterol sulfate 90 mcg/actuation (Ventolin HFA) 2 puffs PO Q4-6H PRN Wheezing To albuterol sulfate 90 mcg/actuation (Ventolin HFA) 2 puffs PO Q4-6H PRN 8.5 grams 3RF Wheezing 30 days Refilled fluticasone propion-salmeterol 250-50 mcg/dose (Advair Diskus) 1 inh inhalation Q12H 60 ea 5RF copd 30 days tiotropium bromide 1.25 mcg/actuation (Spiriva Respimat) 2 puffs PO DAILY 4 grams 5RF copd 30 days Quality Reporting (2019) Adult ([facility] 138/06/24/68) Body Mass Index: 30.2 Coding Level of Care Code Est Pt Level 3 (84325) Diagnoses COPD (chronic obstructive pulmonary disease) J44.9 Smoker F17.200 Polycythemia vera D45
[2023-07-05 11:46] VITALS: BMI 30.2
== END 2023-07-05 11:38 | disposition home or self-care (01) ==
PROVIDERS: PCP Internal Medicine Geriatric Medicine; Visit Provider Internal Medicine
DX: J44.9 Chronic obstructive pulmonary disease, unspecified (principal); F17.210 Nicotine dependence, cigarettes, uncomplicated; D45 Polycythemia vera
CPT/HCPCS: 99213

== ENCOUNTER → 2023-07-05 11:19 | Outpatient (BNVA) | payer MEDICARE, SELFPAY | PROVIDERS: PCP Internal Medicine Geriatric Medicine; Visit Provider Internal Medicine | DX: J44.9 Chronic obstructive pulmonary disease, unspecified (principal); D45 Polycythemia vera; F17.210 Nicotine dependence, cigarettes, uncomplicated | CPT/HCPCS: 99212 ==

== ENCOUNTER 2023-07-19 11:01 | Outpatient (REF) | payer MEDICARE, SELFPAY | END 2023-07-19 11:02 | disposition home or self-care (01) | LOC: HO.BBR 11:01 | PROVIDERS: PCP Internal Medicine Geriatric Medicine; Visit Provider Internal Medicine Medical Oncology | DX: D75.1 Secondary polycythemia (principal) | CPT/HCPCS: 85018; 99195 ==

== ENCOUNTER 2023-08-17 13:39 | Outpatient (REF) | payer MEDICARE, SELFPAY ==
[2023-08-17 17:40] LABS: Cholesterol 143 mg/dL (<200); HDL Cholesterol 56 mg/dL (>40); LDL Cholesterol Calculated 61 mg/dL (<100); Triglycerides 134 mg/dL (<150); Vitamin D 25-OH Total 37.6 ng/mL (>30)
== END 2023-08-17 13:40 | disposition home or self-care (01) ==
LOC: HO.HHCL 13:39
PROVIDERS: Visit Provider Internal Medicine Geriatric Medicine
DX: Z00.00 Encounter for general adult medical examination without abnormal findings (principal); Z13.6 Encounter for screening for cardiovascular disorders
CPT/HCPCS: 36415; 80061; 82306

== ENCOUNTER 2024-01-10 11:38 | Outpatient (AMB) | payer MEDICARE, SELFPAY ==
[2024-01-10 11:42] VITALS: BP 112/60; PULSE 103; O2SAT 89; BMI 30.4
--- NOTE | 2024-01-10 11:42 | A.OFFVIS_ITS ---
Vital Signs 01/10/24 11:42 Height 5 ft 2 in Weight 166 lb BMI 30.4 BP 112/60 Blood Pressure Location Lt brachial Position Sitting Pulse 103 H Pulse Source Pulse Oximeter Pulse Oximetry (%) 89 L Oxygen Delivery Method Room Air Intake Visit Reasons: COPD Intake Note: pt is here for follow up and states her breathing doing is okay. Lacquer Coater Required: No Allergies No Known Allergies [No Known Allergies*] Allergy (Verified 01/10/24 11:49) Medication List - Last Reconciled 01/10/24 by Corazon Posey MD albuterol sulfate 90 mcg/actuation (Ventolin HFA) 2 puffs PO Q4-6H PRN 30 days aspirin (Adult Low Dose Aspirin) 81 mg PO DAILY atorvastatin (Lipitor) 80 mg PO DAILY fluticasone propion-salmeterol 250-50 mcg/dose (Advair Diskus) 1 inh inhalation Q12H 30 days hydrochlorothiazide 1 tab PO DAILY lisinopril 1 tab PO DAILY sertraline 100 mg PO DAILY tiotropium bromide 1.25 mcg/actuation (Spiriva Respimat) 2 puffs PO DAILY 30 days trazodone 50 mg PO BEDTIME Do you need a note to return to daycare/school/sports/work: No HPI HPI COPD: Details: [age] years female comes for follow-up after six months. He has longstanding history of smoking, but claims that she is down to only 1 cigarette a day , and that also is not on a daily basis. Denies any cough wheezing or shortness of breath. She thinks she is doing well with the current inhalers. Patient also has chronic polycythemia vera, she has missed a few appointments with Hematology, and has had no phlebotomies for a while. She also missed 1 appointment for the low-dose CT scan. [facility] Medical History (Updated 01/10/24 @ 12:22 by Corazon Posey MD) Hypoxemia History of CVA (cerebrovascular accident) (~2021) Polycythemia vera Hypertension COPD (chronic obstructive pulmonary disease) Nicotine dependence, cigarettes, uncomplicated Colon polyps Depression Surgical History History of colonoscopy Family History Mother Diabetes Colon cancer Father Diabetes Emphysema lung Social History Household Members: Children Housing: Apartment Are you a primary healthcare manager to a significant other at home: No Do you presently have visiting nurse or other home services: No Alcohol intake: never Patient Tobacco Use Status: Former Tobacco user Tobacco use type: Cigarette Cigarette Packs Per Day: 1 Years Smoked: 38 (onset 27 ,1ppd x 38yrs, 35+PYH) Advance Directives Date on File: 11/27/21 service: No Current occupational status: disabled Review of Systems Const All systems reviewed & are unremarkable except as noted in HPI and below ENT Reports no additional complaints Card Denies chest pain, Denies irregular heart rhythm and Denies leg edema Resp Reports as per HPI GI Reports no additional complaints Reports no additional complaints Musc Reports no additional complaints and Reports abnormal gait (Slightly on stable , and she has to be careful, after her stroke.) Skin/Breast Reports system reviewed and no additional complaints, except as documented Neuro Reports no additional complaints and Reports abnormal gait (Slightly on stable , and she has to be careful, after her stroke.) Psych Reports anxiety and Reports depression (Mild, mostly recovered.) Endo Reports no additional complaints Aller/Immun Reports no additional complaints Physical Exam Vital Signs: Last Vital Signs Pulse 103 H 01/10/24 11:42 BP 112/60 01/10/24 11:42 Pulse Ox 89 L 01/10/24 11:42 Oxygen Delivery Method Room Air 01/10/24 11:42 BMI result Body Mass Index 30.4 Seems somewhat depressed, no respiratory distress, Const General: comfortable, no acute distress, alert and awake Orientation/consciousness: patient oriented x3 HEENT Head: Yes normal to inspection General nose exam: No nasal polyps present and No nasal discharge present Face and sinus: Yes sinuses nontender Mouth: oropharynx normal Throat: Yes posterior oropharynx normal Eyes General: appearance normal, both eyes and all related structures Neck Neck: Yes normal visual inspection, Yes no lymphadenopathy, Yes trachea midline and Yes no JVD Thyroid: Thyroid normal Chest Chest palpation & inspection: normal inspection of the chest, normal palpation of entire chest wall and no tenderness Resp Other: Percussion note resonant, breath sounds are distant with prolonged. expiratory phase No rhonchi or wheezes are heard today. Cardio Palpation: normal PMI Rate: regular rate Rhythm: regular rhythm Heart sounds: no gallops and no murmurs GI Palpation (GI): Soft to palpation, nontender, No hepatosplenomegaly present and no masses Auscultation: normal bowel sounds Back/Spine/Pelvis Thoracic/Lumbar Spine: thoracic and lumbar spine normal to inspection Skin General skin exam: no rashes or lesions noted Neuro General: patient oriented x3, gait normal (Normal except that she is slightly on stable if she moves fast) and no focal motor deficits Cranial nerves: Yes CN's II-XII intact bilaterally Extrem General: Yes normal to inspection, Yes no clubbing, cyanosis or edema and Yes no calf tenderness Psych Mental Status: mental status grossly normal and other (Slightly depressed) Speech and movement: Normal speech and movement present Assessment & Plan Assessment & Plan (1) Nicotine dependence, cigarettes, uncomplicated: Comment: (onset 26, 1ppd x 38yrs, now 1-2cig/day - 35+PYH), claims that she has quit smoking , however still smokes 1 or 2 cigarettes a day off and on. Code(s): F17.210 - Nicotine dependence, cigarettes, uncomplicated Category: Medical Plan: I stressed that she has to quit smoking completely. She is advised to make appointment for low-dose CT scan which she should have on a yearly basis. (2) Polycythemia vera: Comment: (dx 2017 - likely secondary to Smoking/COPD - Lately has had no phlebotomy . Lost CBC in January 2000 23 hemoglobin in July 2023 17.4/ hematocrit 51 Code(s): D45 - Polycythemia vera Category: Medical Plan: I instructed her to make appointment with hematology service as soon as possible. She does need to have phlebotomy treatments. (3) COPD (chronic obstructive pulmonary disease): Comment: (Moderate/Severe COPD, smoking related - Confirmed by pulmonary function test. A good response to bronchodilator therapy is consistent with Asthma/Copd overlap syndrome. She claims that she is doing well on the current medical regimen. Code(s): J44.9 - Chronic obstructive pulmonary disease, unspecified Category: Medical Plan: Wixela 250-51 inhalation b.i.d. Spiriva Respimat 1.25 2 inhalations daily. Albuterol HFA 2 puffs Q 6 hours p.r.n.. (4) Hypoxemia: Comment: Patient has borderline hypoxemia. On arriving to the office O2 sat 89%, on sitting it goes up to 93 % I checked her O2 sat a few times and it hours between 89-93 % Explained to her about low oxygenation . Probably on walking actively it goes down even further. Wanted to do 6 minutes walk test but she declined. Code(s): R09.02 - Hypoxemia Category: Medical Plan: I discussed about borderline hypoxemia. Told her that this may be making her polycythemia worse. She may be better of using portable oxygen. HOWEVER SHE HAS DECLINED TO HAVE TESTING AND USE OXYGEN AT THIS TIME. I TOLD HER TO DO DEEP BREATHING EXERCISES OFTEN POSSIBLE. SHE IS TO BE SEEN MORE FREQUENTLY AND IF HER O2 SATS REMAINED DOWN THEN, SHE WILL HAVE TO BE STARTED ON O2 THERAPY. Coding Level of Care Code Est Pt Level 3 (47169) Diagnoses Nicotine dependence, cigarettes, uncomplicated F17.210 Polycythemia vera D45 COPD (chronic obstructive pulmonary disease) J44.9 Hypoxemia R09.02
== END 2024-01-10 12:04 | disposition home or self-care (01) ==
PROVIDERS: PCP Internal Medicine Geriatric Medicine; Visit Provider Internal Medicine
DX: F17.210 Nicotine dependence, cigarettes, uncomplicated (principal); D45 Polycythemia vera; J44.9 Chronic obstructive pulmonary disease, unspecified; R09.02 Hypoxemia
CPT/HCPCS: 99213

== ENCOUNTER → 2024-01-10 11:38 | Outpatient (BNVA) | payer MEDICARE, SELFPAY | PROVIDERS: PCP Internal Medicine Geriatric Medicine; Visit Provider Internal Medicine | DX: J44.9 Chronic obstructive pulmonary disease, unspecified (principal); D45 Polycythemia vera; R09.02 Hypoxemia; F17.210 Nicotine dependence, cigarettes, uncomplicated; Z71.6 Tobacco abuse counseling | CPT/HCPCS: 99212 ==

== ENCOUNTER 2024-01-19 12:01 | Outpatient (REF) | payer MEDICARE, SELFPAY | END 2024-01-19 12:02 | disposition home or self-care (01) | LOC: HO.BBR 12:01 | PROVIDERS: PCP Internal Medicine Geriatric Medicine; Visit Provider Internal Medicine Medical Oncology | DX: D75.1 Secondary polycythemia (principal) | CPT/HCPCS: 85014; 85018; 99195 ==

== ENCOUNTER 2024-04-14 10:05 | Outpatient (REF) | payer MEDICARE, SELFPAY ==
[2024-04-14 11:28] LABS: Albumin Level 4.2 g/dL (3.5-5.0); Anion Gap 13 (12-20); Aspartate Amino Transferase 59 U/L (5-31); Bilirubin Total 0.5 mg/dL (0.0-1.0); Blood Urea Nitrogen 16 mg/dL (9-16); Calcium 9.7 mg/dL (8.4-10.2); Carbon Dioxide 31 mmol/L (22-29); Chloride 100 mmol/L (96-108); Cholesterol 125 mg/dL (<200); Estimated Glomerular Filt Rate > 60; Glucose Random 144 mg/dL (60-115); HDL Cholesterol 46 mg/dL (>40); LDL Cholesterol Calculated 37 mg/dL (<100); Sodium 140 mmol/L (135-145); Triglycerides 214 mg/dL (<150)
[2024-04-14 12:14] LABS: Alanine Aminotransferase 29 U/L (0-31); Alkaline Phosphatase 79 U/L (39-117)
== END 2024-04-14 10:06 | disposition home or self-care (01) ==
LOC: HO.HHCL 10:05
PROVIDERS: Visit Provider Internal Medicine Geriatric Medicine
DX: Z79.899 Other long term (current) drug therapy (principal)
CPT/HCPCS: 36415; 80053; 80061

== ENCOUNTER 2024-04-17 11:25 | Outpatient (AMB) | payer MEDICARE, SELFPAY ==
[2024-04-17 11:44] VITALS: BP 120/64; PULSE 84; O2SAT 92
--- NOTE | 2024-04-17 11:44 | MHC.OFFVIS ---
Vital Signs 04/17/24 11:44 Height 5 ft 2 in BP 120/64 Blood Pressure Location Lt brachial Position Sitting Pulse 84 Pulse Source Pulse Oximeter Pulse Oximetry (%) 92 Oxygen Delivery Method Room Air Intake Visit Reasons: COPD Intake Note: pt is here for follow up and states she has a lot of cold symptoms going on, coughing, congested, blowing her nose. would like a nebulizer at home, she found this helps a lot, hers is very old. Perfect Bind Machine Operator Required: No Allergies No Known Allergies [No Known Allergies*] Allergy (Verified 04/17/24 11:49) Medication List - Last Reconciled 04/17/24 by Corazon Posey MD albuterol sulfate 90 mcg/actuation (Ventolin HFA) 2 puffs PO Q4-6H PRN 30 days aspirin (Adult Low Dose Aspirin) 81 mg PO DAILY atorvastatin (Lipitor) 80 mg PO DAILY fluticasone furoate-vilanterol 200-25 mcg/dose (Breo Ellipta) 1 inh inhalation DAILY 30 days hydrochlorothiazide 1 tab PO DAILY lisinopril 1 tab PO DAILY sertraline 100 mg PO DAILY tiotropium bromide 1.25 mcg/actuation (Spiriva Respimat) 2 puffs PO DAILY 30 days Do you need a note to return to daycare/school/sports/work: No HPI HPI COPD: Details: 68 years old very pleasant female, with lifelong history of smoking but quit since her last visit, Claims that her breathing is better since she quit smoking. Only recently she had symptoms of common cold which she caught from 1 of the family members. Now she feels better. She would like to use the nebulizer and she has ipratropium-albuterol solution at home from before. She missed having annual CT scan because she was not reminded. [facility] Medical History Hypoxemia History of CVA (cerebrovascular accident) (~2021) Polycythemia vera Hypertension COPD (chronic obstructive pulmonary disease) Nicotine dependence, cigarettes, uncomplicated Colon polyps Depression Surgical History History of colonoscopy Family History Mother Diabetes Colon cancer Father Diabetes Emphysema lung Social History Household Members: Children Housing: Apartment Are you a primary healthcare consultant to a significant other at home: No Do you presently have visiting nurse or other home services: No Alcohol intake: never Patient Tobacco Use Status: Former Tobacco user Tobacco use type: Cigarette Cigarette Packs Per Day: 1 Years Smoked: 38 (onset 27 ,1ppd x 38yrs, 35+PYH) Advance Directives Date on File: 11/27/21 service: No Current occupational status: disabled Review of Systems Const All systems reviewed & are unremarkable except as noted in HPI and below ENT Reports no additional complaints Card Denies chest pain, Denies irregular heart rhythm and Denies leg edema Resp Reports as per HPI GI Reports no additional complaints Reports no additional complaints Musc Reports no additional complaints and Reports abnormal gait (Slightly on stable , and she has to be careful, after her stroke.) Skin/Breast Reports system reviewed and no additional complaints, except as documented Neuro Reports no additional complaints and Reports abnormal gait (Slightly on stable , and she has to be careful, after her stroke.) Psych Reports anxiety and Reports depression (Mild, mostly recovered.) Endo Reports no additional complaints Aller/Immun Reports no additional complaints Physical Exam Vital Signs: Last Vital Signs Pulse 84 04/17/24 11:44 BP 120/64 04/17/24 11:44 Pulse Ox 92 04/17/24 11:44 Oxygen Delivery Method Room Air 04/17/24 11:44 Seems somewhat depressed, no respiratory distress, Const General: comfortable, no acute distress, alert and awake Orientation/consciousness: patient oriented x3 HEENT Head: Yes normal to inspection General nose exam: No nasal polyps present and No nasal discharge present Face and sinus: Yes sinuses nontender Mouth: oropharynx normal Throat: Yes posterior oropharynx normal Eyes General: appearance normal, both eyes and all related structures Neck Neck: Yes normal visual inspection, Yes no lymphadenopathy, Yes trachea midline and Yes no JVD Thyroid: Thyroid normal Chest Chest palpation & inspection: normal inspection of the chest, normal palpation of entire chest wall and no tenderness Resp Other: Percussion note resonant, breath sounds are distant with prolonged. expiratory phase No rhonchi or wheezes are heard today. Cardio Palpation: normal PMI Rate: regular rate Rhythm: regular rhythm Heart sounds: no gallops and no murmurs GI Palpation (GI): Soft to palpation, nontender, No hepatosplenomegaly present and no masses Auscultation: normal bowel sounds Back/Spine/Pelvis Thoracic/Lumbar Spine: thoracic and lumbar spine normal to inspection Skin General skin exam: no rashes or lesions noted Neuro General: patient oriented x3, gait normal (Normal except that she is slightly on stable if she moves fast) and no focal motor deficits Cranial nerves: Yes CN's II-XII intact bilaterally Extrem General: Yes normal to inspection, Yes no clubbing, cyanosis or edema and Yes no calf tenderness Psych Mental Status: mental status grossly normal and other (Slightly depressed) Speech and movement: Normal speech and movement present Assessment & Plan Assessment & Plan (1) COPD (chronic obstructive pulmonary disease): Comment: (Moderate/Severe COPD, smoking related - Confirmed by pulmonary function test. A good response to bronchodilator therapy is consistent with Asthma/Copd overlap syndrome. She claims that she is doing well on the current medical regimen. Code(s): J44.9 - Chronic obstructive pulmonary disease, unspecified Category: Medical Plan: Breo 200-25 1 inhalation daily Spiriva Respimat 2.5 mg 2 inhalations daily Ventolin HFA 2 puffs Q 6 hours p.r.n. may alternate with use of albuterol solution in the nebulizer Q 4-6 hours p.r.n.. Nebulizer unit is prescribed. (2) Nicotine dependence, cigarettes, uncomplicated: Comment: (onset 26, 1ppd x 39yrs, now 1-2cig/day - 35+PYH), claims that she has quit smoking , however still smokes 1 or 2 cigarettes a day off and on. Code(s): F17.210 - Nicotine dependence, cigarettes, uncomplicated Category: Medical Plan: Advised to stay clear of smoking completely. Advised to participate in annual lung screening program. Appointment for repeat CT scan is arranged. Coding Level of Care Code Est Pt Level 3 (57771) Diagnoses COPD (chronic obstructive pulmonary disease) J44.9 Nicotine dependence, cigarettes, uncomplicated F17.210
== END 2024-04-17 11:58 | disposition home or self-care (01) ==
PROVIDERS: PCP Internal Medicine Geriatric Medicine; Visit Provider Internal Medicine
DX: J44.9 Chronic obstructive pulmonary disease, unspecified (principal); F17.210 Nicotine dependence, cigarettes, uncomplicated
CPT/HCPCS: 99213

== ENCOUNTER → 2024-04-17 11:25 | Outpatient (BNVA) | payer MEDICARE, SELFPAY | PROVIDERS: PCP Internal Medicine Geriatric Medicine; Visit Provider Internal Medicine | DX: J44.9 Chronic obstructive pulmonary disease, unspecified (principal); F17.210 Nicotine dependence, cigarettes, uncomplicated | CPT/HCPCS: 99212 ==

== ENCOUNTER 2024-05-29 10:59 | Outpatient (REF) | payer MEDICARE, SELFPAY ==
--- NOTE | ~2024-05-29 | CT_ITS ---
CLINICAL HISTORY: F17.210 - Nicotine dependence, cigarettes, uncomplicated CT lung cancer screening (LDCT) Comparison: CT/SR - CT LUNG SCREENING - 07/16/22 09:[address]/MS - CT LUNG SCREENING - 01/24/21 14:10 EDT Technique: Axial CT images of the chest using low-dose technique. Referring provider counseled the patient on shared decision-making for LDCT screening. Additional counseling was provided on smoking cessation. Effective radiation dose total: DLP 85.3 mGycm, CTDIvol 2.3 mGy. Findings: Moderate emphysematous changes throughout the lungs. No focal area of consolidation. No discrete pulmonary nodule. Some subtle peripheral areas of likely scarring or atelectasis. Vascular calcification of the thoracic aorta and coronary arteries. Overall heart size is within normal limits. No free fluid or free air within the upper abdomen. No acute bony abnormality. Impression: Emphysema without concerning pulmonary nodule. Category 2: Benign appearance. Continued annual lung cancer screening chest CT suggested. Category 1: Normal; continue annual screening Category 2: Benign appearance or behavior, continue annual screening Category 3: Probably benign, [address] recommended Category 4A: Suspicious, [address] recommended; may consider PET/CT Category 4B: Suspicious, Additional diagnostics and/or tissue sampling recommended Category 4X: Suspicious, Additional diagnostics and/or tissue sampling recommended Category 0: Recalls (incomplete screen due to Incomplete coverage, Noise, Respiratory motion, Expiration, Obscured by acute abnormality) This document has been electronically signed by: Paulie Higgins MD on 05/29/2024 17:28:43
--- OUTSIDE RECORDS SUMMARY | 2024-05-29 15:56 | XMS_ITS | Encounter Summary ---
Author Organization [employer] Address [address] [place] [address] Care Team Providers Care Mental Health Program Specialist Name Role Phone Name, Georgi AUSTIN Primary Care Provider [phone] Reason for Visit * Reason Comments Med Refill Encounter Details Date Type Department Care Team ([facility] st Contact Info) Description 05/28/2024 Refill [facility] MEDICINE [address] [place] [address] Brice Rivera MD [address] [place] [address] Social History Tobacco Use Types Packs/Day Years Used Date Smoking Tobacco: Some Days Cigarettes Smokeless Tobacco: Never Alcohol Use Standard Drinks/Week Comments Never 0 (1 standard drink = 0.6 oz pur e alcohol) Alcohol Answer Date Recorded Frequency of Alcohol Consumption Not on file 12/01/2023 Average Number of Drinks Not on file 024 Frequency of Binge Drinking Not on file 11/02 Score 0 12/01/2023 Housing Stability Answer Date Recorded What is your housing situation today? I have elisa best 02/22/[address] you li ve. Do you have problems with any of the following? None of the above 02/22/2023 Food Insecurity Answer Date Recorded Within the past 12 months, y ou worried that your food would run out before you got money to buy more: Often true 02/22/2023 Within the past 12 months,th e food you bought just didn't last and you didn't have enough money to get more: Often true Transportation Answer Date Recorded In the past 12 months, has l ack of transportation kept you from medical appts, meetings, work or from getting things needed for daily living? No 02/22/2023 Utilities Answer Date Recorded In the past 12 months, has t he electric, gas, oil or water company threatened to shut off services in your home? No 02/22/2023 Depression Answer Date Recorded Patient Health Questionnaire-2 Score 0 12/09/2022 Comments Unknown Sex and Gender Information Value Date Recorded Sex Assigned at Female 03/02/2022 10:20 AM EDT Legal Sex Female 10:20 AM EDT Gender Identity Female 03/02/2022 10:20 AM EDT Sexual Orientation Straight 03/02/2022 10 :20 AM EDT documented as of this encounter Plan of Treatment Not on file documented as of this encounter Visit Diagnoses Not on filedocumented in this encounter Care Teams Mental Health Program Specialist Relationship Specialty Start Date End Date Name, MD Georgi [address] [place] [address] PCP - General Family Medicine 07/16/20 documented as of this encounter
--- OUTSIDE RECORDS SUMMARY | 2024-05-29 15:56 | XMS_ITS | Encounter Summary ---
Author Organization [employer] Address [address] [facility] [address] [place] [address] Care Team Providers Care Urban Redevelopment Specialist Name Role Phone Name, Georgi AUSTIN Primary Care Provider [phone] Reason for Visit * Reason Comments Med Refill Encounter Details Date Type Department Care Team ([facility] st Contact Info) Description 03/24/2023 Refill [facility] MEDICINE [address] [place] [address] Name, MD Georgi [address] [place] [address] Social History Tobacco Use Types Packs/Day Years Used Date Smoking Tobacco: Every Day Cigarettes Smokeless Tobacco: Never Alcohol Use Standard Drinks/Week Comments Never 0 (1 standard drink = 0.6 oz pur e alcohol) Housing Stability Answer Date Recorded What is [...] on filedocumented in this encounter Care Teams Urban Redevelopment Specialist Relationship Specialty Start Date End Date Name, MD Georgi [address] [place] [address] PCP - General Family Medicine 07/16/20 documented as of this encounter
--- OUTSIDE RECORDS SUMMARY | 2024-05-29 15:56 | XMS_ITS | Encounter Summary ---
Author Organization [employer] Address [address] [facility] [address] [place] [address] Care Team Providers Care Oracle Consultant Name Role Phone Name, Georgi AUSTIN Primary Care Provider [phone] Encounter Details Date Type Department Care Team (Late st Contact Info) Description 10/05/2022 Abstract [facility] MEDICINE [address] [place] [address] Name, MD Georgi [address] [place] [address] Social History Tobacco Use Types Packs/Day Years Used Date Smoking Tobacco: Never Smokeless Tobacco: Never Comments Unknown Sex and Gender Information Value [...] on filedocumented in this encounter Care Teams Oracle Consultant Relationship Specialty Start Date End Date Name, MD Georgi [address] [place] [address] PCP - General Family Medicine 07/16/20 documented as of this encounter
--- OUTSIDE RECORDS SUMMARY | 2024-05-29 15:56 | XMS_ITS | Clinical Summary ---
Author Organization [employer] Address [address] [facility] [address] [place] [address] Care Team Providers Care Gluing Crew Leader Name Role Phone Name, Georgi AUSTIN Primary Care Provider [phone] Allergies No known active allergies Medications Spiriva Respimat 1.25 MCG/ACT inhaler 06/25/19 23 Active Advair Diskus 250-50 MCG/ACT aerosol powder INHALE 1 PUFF BY MOUTH TWICE DAILY. RINSE MOUTH AFTER USING. 06/02/19 23 Active Misc. Devices (Pulse Oximeter) misc Use as needed 1 each 03/03/20 23 Active albuterol (Ventolin HFA) 108 (90 Base) MCG/ACT inhalerIndicati ons:Asthma, unspecified asthma severity, unspecified whether complicated, unspecified whether persistent INHALE 2 PUFFS BY MOUTH EVERY 4 TO 6 HOURS NEEDED 18 g 06/01/19 24 Active mometasone (Elocon) 0.1 % ointmentIndicat ions:Rash Apply topically Once per day. 45 g 2 12/01/19 24 2024 Active lisinopril 20 MG tabletIndicatio ns:Hypertension , unspecified type TAKE 1 TABLET BY MOUTH EVERY DAY 90 tablet 3 12/07/19 24 Active aspirin (Aspirin Low Dose) 81 MG EC tablet TAKE 1 TABLET BY MOUTH EVERY DAY 90 tablet 3 12/22/19 24 Active azithromycin (Zithromax) 250 MG tablet Take 2 tabs day and then 1 tab daily 6 tablet 01/31/20 24 Active albuterol 1.25 MG/3ML nebulizer solutionIndicat ions:COPD exacerbation (CMS/HCC) Take 6 mL (2.5 mg) by nebulization every 4 (four) hours if needed for wheezing. 75 mL 11 01/31/20 24 2024 Active atorvastatin (Lipitor) 80 MG tablet TAKE 1 TABLET BY MOUTH EVERY DAY 90 tablet 03/14/20 24 Active hydroCHLOROthia zide (HYDRODiuril) 25 MG tabletIndicatio ns:Hypertension , unspecified type TAKE 1 TABLET BY MOUTH EVERY DAY IN THE MORNING 90 tablet 03/14/20 24 Active ipratropium-alb uterol (Duo-Neb) 0.5-2.5 mg/3 mL nebulizer solutionIndicat ions:Moderate chronic obstructive pulmonary disease (CMS/HCC) Take 3 mL by nebulization every 6 (six) hours. 180 mL 11 03/22/20 24 2024 Active sertraline (Zoloft) 100 MG tablet TAKE 1 TABLET BY MOUTH EVERY DAY IN THE MORNING 30 tablet 1 05/29/19 25 Active sertraline (Zoloft) 100 MG tablet TAKE 1 TABLET BY MOUTH EVERY DAY IN THE MORNING 30 tablet 1 03/29/20 24 2024 Discontinued Active Problems Problem Noted Date Diagnosed Date Pain in lower limb 07/08/2022 Moderate chronic obstructive pulmonary disease 0 07/08/2022 Erythrocytosis 07/08/2022 History of CVA (cerebrovascular accident) 2022 Overview (07/08/2022): MRI of brain showed acute infarct of left ventral lara 12/2021 Hypertensive disorder 06/05/2022 Polyp of colon 06/29/2016 Recurrent depression 06/17/2012 Encounters Date Type Department Care Team Description 05/28/2024 Refill [facility] [address] [place] [address] Brice Rivera MD 04/06/2024 Telephone [facility] [address] [place] [address] Ananya Reese MA DME from [facility] 04/05/2024 Telephone [facility] [address] [place] [address] Ananya Reese MA DME from [facility] 04/04/2024 Telephone [facility] [address] [place] [address] Georgi Alarcon MD [employer] Equipment 03/29/2024 Refill [facility] [address] [place] [address] Georgi Alarcon MD 03/24/2024 Telephone [facility] [address] [place] [phone] Georgi Alarcon MD Durable Medical Equipment 03/24/[address] [address] Georgi Alarcon MD Durable Medical Equipment 03/22/2024 3:30 PM EST Office Visit [facility] [address] [place] [phone] Georgi Alarcon MD Moderate chronic obstructive pulmonary disease (CMS/HCC) (Primary Dx); Vaccination refused by patient; On statin therapy 03/22/2024 Travel 03/20/2024 Telephone [facility] [address] [place] [phone] Yaneth Ortiz MA Chart Prep 03/13/2024 Refill [facility] [address] [place] [address] Georgi Alarcon MD Hypertension, unspecified type from Last 3 Months Immunizations Name Administration Dates Next Due Influenza injectable quadriv alent IIV4 with preservative 02/12/2015 Pneumococcal Conjugate PCV 20 01/13/2022 Tdap 08/02/2022,06/26/2013 Social History Tobacco Use Types Packs/Day Years Used Date Smoking Tobacco: Some Days Cigarettes Smokeless Tobacco: Never Tobacco Cessation:Ready to Q uit: Not Asked; Counseling Given: Not Answered Alcohol Use Standard Drinks/Week Comments Never 0 [...] Orientation Straight 03/02/2022 10 :20 AM EDT Last Filed Vital Signs Vital Sign Reading Time Taken Comments Blood Pressure 101/77 03/22/2024 3:46 PM EST Pulse 89 03/22/2024 3:46 PM EST Temperature 36.2 ??C (97.1 ??F) 03/22/2024 3:46 PM ES T Respiratory Rate 12 03/22/2024 3:46 PM EST Oxygen Saturation 93% 03/22/2024 3:46 PM EST Inhaled Oxygen Concentration - - Weight 72.9 kg (160 lb 12.8 oz) 03/22/2024 3:46 PM EST Height 157.5 cm (5' 2 ) 03/22/2024 3:46 PM EST Body Mass Index 29.41 03/22/2024 3:46 PM EST Plan of Treatment Health Maintenance Due Date Last Done Comments CT Colonography 1955 Colonoscopy 1955 Colorectal Cancer Screening 1955 FIT DNA/Cologuard 1955 FIT 1955 FOBT 1955 Sigmoidoscopy 1955 Zoster Vaccines (1 of 2) 2006 RSV Patients and Patients Aged 60 years or older (1 - Risk 60-74 years 1-dose series) 2016 Depression Screening 12/10/2023 12/09/2022, 12/10/19 COVID-19 Vaccine ( season) 2024 12/24/2020, 11/29/2020 Influenza Vaccine (#1) 2024 02/12/2015 SDOH Screening 07/15/2024 07/16/2023 Alcohol/Substance Use Screening 11/30/2024 12/01/2023 Tobacco Screening 03/22/2025 03/22/2024 Mammogram 05/05/2025 05/05/2023 Lipid Panel 04/14/2029 04/14/2024, 08/01, 07/10/2022, Additional history exists DTaP/Tdap/Td Vaccines (3 - Td or Tdap) 08/02/2032 08/02/2022, 06/26/2013 Hepatitis C Screening Completed 06/29/2016 Pneumococcal Vaccine: 65+ Years Completed 01/13/2022 HIB Vaccines Aged Out No longer eligi ble based on patient's age to complete this topic HPV Vaccines Aged Out No longer eligi ble based on patient's age to complete this topic Hepatitis A Vaccines Aged Out No long er eligible based on patient's age to complete this topic Hepatitis B Vaccines Aged Out No long er eligible based on patient's age to complete this topic IPV Vaccines Aged Out No longer eligi ble based on patient's age to complete this topic Meningococcal Vaccine Aged Out No katherin semaj eligible based on patient's age to complete this topic RSV under 20 months Aged Out No longe r eligible based on patient's age to complete this topic Rotavirus Vaccines Aged Out No longer eligible based on patient's age to complete this topic Procedures Procedure Name Priority Date/Time Associated Diagnosis Comments LIPID PANEL, STANDARD Routine 04/14/2024 10:08 AM EST Vaccination refused by patient On statin therapy COMPREHENSIVE METABOLIC PANEL Routine 04/14/2024 10:08 AM EST Vaccination refused by patient On statin therapy BI MAMMOGRAM SCREENING TOMOSYNTHESIS BILATERAL Routine 05/05/2023 12:15 PM EST HM HEPATITIS C ANTIBODY Routine 06/29/2016 from Last 3 Months or Most Recently Relevant to Health Maintenance Results * (ABNORMAL) Lipid Panel, Standard (04/14/2024 10:08 AM EST) Triglycerides 214(H) <150 mg/dL [facility] Comment:Slight Lipemia.Kari able Triglyceride: less than 150 mg/dLBorderline High Triglyceride 150-199 mg/dLHigh Triglyceride: 200-499 mg/dLVery High Triglyceride: greater than or equal to 5OO mg/dL Cholesterol 125 <200 mg/dL [facility] Comment:Desirable Cholestero l: less than 200 mg/dLBorderline High Cholesterol: 200-239 mg/dLHigh Cholesterol: greater than 239 mg/dL LDL Cholesterol Calculated 37 <100 mg/dL [facility] Comment:Desirable LDL: less than 100 mg/dLNear Optimal/Above Optimal LDL: 110- 129 mg/dLBorderline High LDL: 130-159 mg/dLHigh LDL: 160-189 mg/dLVery High LDL: greater than or equal to 190 mg/dL HDL Cholesterol 46 >40 mg/dL [facility] Comment:Desirable HDL: great er than 40 mg/dL Note: This HDL assay may give artificially low results in patients with liver disease. Blood Venous blood specimen / Unknown 04/14/2024 10:08 AM EST 04/14/2024 11:04 AM EST us Georgi Name MD LAB BLOOD ORDERABLES Final Resul t [facility] [address] [place] [phone] * (ABNORMAL) Comprehensive Metabolic Panel (04/14/2024 10:08 AM EST) Sodium 140 135 - 145 mmol/L [facility] Potassium 4.0 3.3 - 5.1 mmol/L [facility] Chloride 100 96 - 108 mmol/L [facility] Carbon Dioxide 31(H) 22 - 29 mmol/L [facility] Anion Gap 13 12 - 20 [facility] Urea Nitrogen (BUN) 16 9 - 16 mg/dL [facility] Creatinine, Serum 0.80 0.5 - 1.4 mg/dL [facility] Estimated Glomerular Filt Rate >60 [facility] Comment:Chronic Kidney Disea se: Estimated GFR < 60 mL/min/[id number] Kidney Disease: Estimated GFR < 15 mL/min/1.73m2 Glucose 144(H) 60 - 115 mg/dL [facility] Calcium 9.7 8.4 - 10.2 mg/dL [facility] Bilirubin, Total 0.5 0.0 - 1.0 mg/dL [facility] Aspartate Amino Transferase 59(H) 5 - 31 U/L [facility] Alanine Aminotransferase 29 0 - 31 U/L [facility] Total Protein 7.0 6.5 - 8.0 g/dL [facility] Albumin Level 4.2 3.5 - 5.0 g/dL [facility] Alkaline Phosphatase 79 39 - 117 U/L [facility] Blood Venous blood specimen / Unknown 04/14/2024 10:08 AM EST 04/14/2024 11:04 AM EST us Georgi Name LAB BLOOD ORDERABLES Final Resul t [facility] [address] [place] [phone] * BI Mammogram Screening Tomosynthesis Bilateral (05/05/2023 12:15 PM EST) Anatomical Region Laterality Modality Breast Bilateral Mammography 05/05/2023 12:1 5 PM EST Narrative 05/25/2023 10:53 AM EST ? [facility] [place] ? [address] ?[place] [address] ? Mammography Report ? Signed ? Patient: Donnis,Nabila M ?MR#: [id number] ?? [id number] ? : 1955 ?Acct:[id number] ? Age/Sex: 68 / F ?ADM Date: /03/24 ? Loc: HO.MAMMO ? Attending Dr: Georgi Alarcon MD ? Ordering Physician: Georgi Alarcon MD ?Results: 1Negative ? Date of Service: 05/05/23 ?Follow Up: 1 Year From Orig ?? inal Mammogram ? Procedure(s): MM tomosynthesis screening BI ?? Accession Number(s): [id number] ? cc: Dorian,Georgi AUSTIN ? EXAMINATION: ?? MM SCREENING DIGITAL BREAST TOMOSYNTHESIS, BILATERAL ? CLINICAL INFORMATION: ? Screening. Asymptomatic. ? COMPARISON: ?? Mammography: This study is compared with prior exams dating back to ?? 2013. ? TECHNIQUE: ?? Digital breast tomosynthesis is performed in both the craniocaudal and ?? mediolateral oblique views along with computer-aided detection (CAD). ?? Synthesized 2D images are generated from the tomosynthesis. ? FINDINGS: ?? The breasts are almost entirely fatty (ACR BI-RADS breast composition ?? Category a). ? There are no significant masses, abnormal calcifications, or other ?? abnormalities. ? MM/MM tomosynthesis screening BI ?? IMPRESSION: ?? No mammographic evidence of malignancy. ? ASSESSMENT: ? BI-RADS BI-RADS 1 - Negative ? RECOMMENDATION: ?? Routine annual mammography screening. ? 1 year F/U ? This examination should not preclude the clinical evaluation of a ?? suspicious palpable abnormality. ? This patient's information was entered into a reminder system with a ?? target due date for their next mammogram. ? Dictated By: ?Maru Umana MD ? Signed By: ?<Electronically signed by Maru Umana MD in OV> ? 05/25/230 ? DD/ 1215 ? TD/TT: ? Superintendent Track: ? Procedure Note Donotjohnnyter, [facility] - [facility] [address] [place] [address] Mammography Report Signed Patient: Nabila Whitlock MMR#: [id number] : 6Acct:[id number] Age/Sex: 68 / FADM Date: 05/05/23 Loc: RAJIV.MAMMO Attending Dr: Georgi Alarcon MD Ordering Physician: Georgi Alarcon MDResults: 1Negative Date of Service: 05/05/23Follow Up: 1 Year From Orig inal Mammogram Procedure(s): MM tomosynthesis screening BI Accession Number(s): [id number] cc: Georgi Alarcon MD EXAMINATION: MM SCREENING DIGITAL BREAST TOMOSYNTHESIS, BILATERAL CLINICAL INFORMATION: Screening. Asymptomatic. COMPARISON: Mammography: This study is compared with prior exams dating back to 2013. TECHNIQUE: Digital breast tomosynthesis is performed in both the craniocaudal and mediolateral oblique views along with computer-aided detection (CAD). Synthesized 2D images are generated from the tomosynthesis. FINDINGS: The breasts are almost entirely fatty (ACR BI-RADS breast composition Category a). There are no significant masses, abnormal calcifications, or other abnormalities. MM/MM tomosynthesis screening BI IMPRESSION: No mammographic evidence of malignancy. ASSESSMENT: BI-RADS BI-RADS 1 - Negative RECOMMENDATION: Routine annual mammography screening. 1 year F/U This examination should not preclude the clinical evaluation of a suspicious palpable abnormality. This patient's information was entered into a reminder system with a target due date for their next mammogram. Dictated By: Maru Umana MD Signed By: <Electronically signed by Maru Umana MD in OV> 05/25/23 1050 DD/ 1215 TD/TT: Superintendent Track: Georgi Name IMG BI PROCEDURES Final Result * HM Hepatitis C Antibody (06/29/2016) Hepatitis C Antibody Nonreactive Blood Georgi Alarcon MD HEALTH MAINTENANCE Final Result from Last 3 Months or Most Recently Relevant to Health Maintenance Insurance MEDICARE Care Teams Gluing Crew Leader Relationship Specialty Start Date End Date Name, MD Georgi [address] [place] [phone] PCP - General Family Medicine 07/16/20
--- OUTSIDE RECORDS SUMMARY | 2024-05-29 15:56 | XMS_ITS | Encounter Summary ---
Author Organization [employer] Address [address] [facility] 7[address] [place] [address] Care Team Providers Care Media Assistant Name Role Phone Name, Georgi AUSTIN Primary Care Provider [phone] Reason for Visit * Reason Comments Med Refill Encounter Details Date Type Department Care Team ([facility] st Contact Info) Description 03/23/2023 Refill [facility] [address] [place] [address] Name, MD Georgi [address] [place] [address] Social History Tobacco Use Types Packs/Day Years [...] on filedocumented in this encounter Care Teams Media Assistant Relationship Specialty Start Date End Date Name, MD Georgi [address] [place] [address] PCP - General Family Medicine 07/16/20 documented as of this encounter
--- OUTSIDE RECORDS SUMMARY | 2024-05-29 15:56 | XMS_ITS | Encounter Summary ---
Author Organization [employer] Address [address] [facility] 7t [place] [address] Care Team Providers Care Rrts Name Role Phone Name, Georgi AUSTIN Primary Care Provider [phone] Encounter Details Date Type Department Care Team (Late st Contact Info) Description 06/05/2022 Orders Only [facility] [address] [place] [address] Jena Lerma LPN Social History Tobacco Use Types Packs/Day Years Used Date Smoking Tobacco: Never Assessed Comments Unknown Sex and Gender Information Value [...] on filedocumented in this encounter Care Teams Rrts Relationship Specialty Start Date End Date Name, MD Georgi [address] [place] [phone] PCP - General Family Medicine 07/16/20 documented as of this encounter
--- OUTSIDE RECORDS SUMMARY | 2024-05-29 15:56 | XMS_ITS | Encounter Summary ---
Author Organization [employer] Address [address] [facility] 7t [place] [address] Care Team Providers Care Training Systems Officer Name Role Phone Name, Georgi AUSTIN Primary Care Provider [phone] Encounter Details Date Type Department Care Team (Late st Contact Info) Description 05/06/2022 Orders Only [facility] [address] [place] [address] Jena Lerma LPN Social History Tobacco Use [...] on filedocumented in this encounter Care Teams Training Systems Officer Relationship Specialty Start Date End Date Name, MD Georgi [address] [place] [phone] PCP - General Family Medicine 07/16/20 documented as of this encounter
== END 2024-05-29 11:00 | disposition home or self-care (01) ==
LOC: HO.CT 10:59
PROVIDERS: PCP Internal Medicine Geriatric Medicine; Visit Provider Physician Assistant Medical
DX: Z12.2 Encounter for screening for malignant neoplasm of respiratory organs (principal); F17.210 Nicotine dependence, cigarettes, uncomplicated
CPT/HCPCS: 71271

== ENCOUNTER → 2024-05-29 11:01 | Outpatient (BNV) | payer MEDICARE, SELFPAY | PROVIDERS: PCP Internal Medicine Geriatric Medicine; Visit Provider Radiology Diagnostic Radiology | DX: F17.210 Nicotine dependence, cigarettes, uncomplicated (principal) | CPT/HCPCS: 71271 ==

== ENCOUNTER 2024-05-30 12:53 | Outpatient (REF) | payer MEDICARE, SELFPAY ==
--- OUTSIDE RECORDS SUMMARY | 2024-05-30 13:46 | XMS_ITS | Encounter Summary ---
Author Organization [employer] Address [address] [facility] 7[address] [place] [address] Care Team Providers Care Accountant Auditor Name Role Phone Name, Georgi AUSTIN Primary Care Provider [phone] Reason for Visit * Reason Comments Med Refill Encounter Details Date Type Department Care Team ([facility] st Contact Info) Description 05/28/[address] [facility] [address] [place] [address] Brice Rivera MD [address] [place] [address] Social History Tobacco Use Types Packs/Day Years [...] on filedocumented in this encounter Care Teams Accountant Auditor Relationship Specialty Start Date End Date Name, MD Georgi [address] [place] [address] PCP - General Family Medicine 07/16/20 documented as of this encounter
--- OUTSIDE RECORDS SUMMARY | 2024-05-30 13:46 | XMS_ITS | Encounter Summary ---
Author Organization [employer] Address [address] [facility] [address] 7t [place] [address] Care Team Providers Care Supervising Editor News Reel Name Role Phone Name, Georgi AUSTIN Primary Care Provider [phone] Encounter Details Date Type Department Care Team ([facility] st Contact Info) Description 05/29/2024 Orders Only [facility] External Provider, [facility] Social History Tobacco Use Types Packs/Day Years [...] on file documented as of this encounter Procedures Procedure Name Priority Date/Time Associated Diagnosis Comments LDCT LUNG SCREENING Routine 05/29/2024 5 :28 PM EST documented in this encounter Results * CT Lung Screening Low dose (05/29/2024 5:28 PM EST) Anatomical Region Laterality Modality Lung Computed Tomogra phy 05/29/2024 5:28 PM EST Narrative 05/29/2024 5:29 PM EST ? [facility] ?[address] ?[place] [address] ? CT Scan Report ? Signed ? Patient: Nabila Whitlock ?MR#: [id number] ?? 847 ? : 1955 ?Acct:[id number] ? Age/Sex: 69 / F ?ADM Date: 05/29/24 ? Loc: HO.CT ? Attending Dr: Caroline Dupont PA-C ? Ordering Physician: Pat Brown NP ?? Date of Service: 05/29/24 ?? Procedure(s): CT lung screening ?? Accession Number(s): [id number] ? cc: Name,Georgi AUSTIN; Pat Brown NP ? Report Number: ?? [id number]: Total DLP = ?? 95.00 mGy-cm ? CLINICAL HISTORY: F17.210 - Nicotine dependence, cigarettes, uncomplicated ? CT lung cancer screening (LDCT) ? Comparison: CT/SR - CT LUNG SCREENING - 07/16/22 09:55 EDT ?? CT/OR - CT LUNG SCREENING - 01/24/21 14:10 EDT ? Technique: ?? Axial CT images of the chest using low-dose technique. Referring provider ?? counseled the patient on shared decision-making for LDCT screening. ?? Additional counseling was provided on smoking cessation. ?? Effective radiation dose total: DLP 85.3 mGycm, CTDIvol 2.3 mGy. ? Findings: ?? Moderate emphysematous changes throughout the lungs. ?? No focal area of consolidation. ?? No discrete pulmonary nodule. ?? Some subtle peripheral areas of likely scarring or atelectasis. ?? Vascular calcification of the thoracic aorta and coronary arteries. ?? Overall heart size is within normal limits. ?? No free fluid or free air within the upper abdomen. ?? No acute bony abnormality. ? Impression: ?? Emphysema without concerning pulmonary nodule. ?? Category 2: Benign appearance. Continued annual lung cancer screening ?? chest CT suggested. ? Category 1: Normal; continue annual screening ?? Category 2: Benign appearance or behavior, continue annual screening ?? Category 3: Probably benign, [address] recommended ?? Category 4A: Suspicious, [address] recommended; may consider PET/CT ?? Category 4B: Suspicious, Additional diagnostics and/or tissue sampling ?? recommended ?? Category 4X: Suspicious, Additional diagnostics and/or tissue sampling ?? recommended ?? Category 0: Recalls (incomplete screen due to Incomplete coverage, Noise, ?? Respiratory motion, Expiration, Obscured by acute abnormality) ? This document has been electronically signed by: Paulie Higgins MD on ?? 05/29/2024 17:28:43 ? Dictated By: ?Paulie Higgins MD ? Signed By: ?<Electronically signed by Paulie Higgins MD in OV> ? 05/29/24 1729 ? DD/ 1728 ? TD/TT: 05/29/24 1728 ? Cross Country/Track And Field Coach: ? Procedure Note Tahira Lee - 05/29/[address] [address] [address] Scan Report Signed Patient: Reyna Whitlockn [facility]#: [id number] 847 : 6Acct:[id number] Age/Sex: 69 / FADM Date: 05/29/24 Loc: HO.CT Attending Dr: Caroline Dupont PA-C Ordering Physician: Pat Brown NP Date of Service: 05/29/24 Procedure(s): CT lung screening Accession Number(s): [id number] cc: Name,Georgi AUSTIN; Pat Brown NP Report Number: [id number]: Total DLP = 95.00 mGy-cm CLINICAL HISTORY: F17.210 - Nicotine dependence, cigarettes, uncomplicated CT lung cancer screening (LDCT) Comparison: CT/SR - CT LUNG SCREENING - 07/16/22 09:[address]/OR - CT LUNG SCREENING - 01/24/21 14:10 EDT Technique: Axial CT images of the chest using low-dose technique. Referring provider counseled the patient on shared decision-making for LDCT screening. Additional counseling was provided on smoking cessation. Effective radiation dose total: DLP 85.3 mGycm, CTDIvol 2.3 mGy. Findings: Moderate emphysematous changes throughout the lungs. No focal area of consolidation. No discrete pulmonary nodule. Some subtle peripheral areas of likely scarring or atelectasis. Vascular calcification of the thoracic aorta and coronary arteries. Overall heart size is within normal limits. No free fluid or free air within the upper abdomen. No acute bony abnormality. Impression: Emphysema without concerning pulmonary nodule. Category 2: Benign appearance. Continued annual lung cancer screening chest CT suggested. Category 1: Normal; continue annual screening Category 2: Benign appearance or behavior, continue annual screening Category 3: Probably benign, [address] recommended Category 4A: Suspicious, [address] recommended; may consider PET/CT Category 4B: Suspicious, Additional diagnostics and/or tissue sampling recommended Category 4X: Suspicious, Additional diagnostics and/or tissue sampling recommended Category 0: Recalls (incomplete screen due to Incomplete coverage, Noise, Respiratory motion, Expiration, Obscured by acute abnormality) This document has been electronically signed by: Paulie Higgins MD on 05/29/2024 17:28:43 Dictated By: Paulie Higgins MD Signed By: <Electronically signed by Paulie Higgins MD in OV> 05/29/24 1729 DD/ 27 TD/TT: 05/29/241727 Cross Country/Track And Field Coach: [facility] External Provider IMG CT PROCEDURES Final Result documented in this encounter Visit Diagnoses Not on filedocumented in this encounter Care Teams Supervising Editor News Reel Relationship Specialty Start Date End Date Name, MD Georgi [address] [place] [address] PCP - General Family Medicine 07/16/20 documented as of this encounter
--- OUTSIDE RECORDS SUMMARY | 2024-05-30 13:46 | XMS_ITS | Encounter Summary ---
Author Organization [employer] Address [address] [facility] 7t [place] [address] Care Team Providers Care Account Liaison Name Role Phone Name, Georgi AUSTIN Primary Care Provider [phone] Encounter Details Date Type Department Care Team (Late st Contact Info) Description 10/05/2022 Abstract [facility] MEDICINE [address] [place] [address] Name, MD Georgi [address] [place] [address] Social History Tobacco Use Types Packs/Day Years [...] on filedocumented in this encounter Care Teams Account Liaison Relationship Specialty Start Date End Date Name, MD Georgi [address] [place] [address] PCP - General Family Medicine 07/16/20 documented as of this encounter
--- OUTSIDE RECORDS SUMMARY | 2024-05-30 13:46 | XMS_ITS | Clinical Summary ---
Author Organization [employer] Address [address] [facility] 7t [place] [address] Care Team Providers Care Car Chaser Name Role Phone Name, Georgi AUSTIN Primary Care Provider [phone] Allergies No known active allergies Medications Spiriva [...] Encounters Date Type Department Care Team Description 05/29/2024 Orders Only [facility] External Provider, [facility] 05/28/2024 Refill [facility] [address] [place] [address] Brice Rivera MD 04/06/2024 Telephone [facility] [address] [place] [address] Ananya Reese MA DME from [facility] 04/05/2024 Telephone [facility] [address] [place] [address] Ananya Reese MA DME from [facility] 04/04/[address] [address] Georgi Alarcon MD D[employer] Medical Equipment 03/29/2024 Refill [facility] [address] [place] [address] Georgi Alarcon MD 03/24/[address] [address] Georgi Alarcon MD [employer] Medical Equipment 03/24/[address] [address] Georgi Alarcon MD Durable Medical Equipment 03/22/2024 3:30 PM EST Office Visit [address] [address] Georgi Alarcon MD Moderate chronic obstructive pulmonary disease (CMS/HCC) (Primary Dx); Vaccination refused by patient; On statin therapy 03/22/2024 Travel 03/20/[address] [address] Yaneth Ortiz MA Chart Prep 03/13/2024 Refill [facility] [address] [place] [address] Georgi Alarcon MD Hypertension, unspecified type from [...] Depression Screening 12/10/2023 12/09/2022, 12/10/19 COVID-19 Vaccine (3 - season) 2024 12/24/2020, 11/29/2020 Influenza Vaccine (#1) [...] SCREENING Routine 05/29/2024 5 :28 PM EST LIPID PANEL, STANDARD Routine 04/14/2024 10:08 AM EST Vaccination refused by patient On statin therapy COMPREHENSIVE METABOLIC PANEL Routine 04/14/2024 10:08 AM EST Vaccination refused by patient On statin therapy BI MAMMOGRAM SCREENING TOMOSYNTHESIS BILATERAL Routine 05/05/2023 12:15 PM EST HM HEPATITIS C ANTIBODY Routine 06/29/2016 from Last 3 Months or Most Recently Relevant to Health Maintenance Results * CT Lung Screening Low dose (05/29/2024 5:28 PM EST) Anatomical Region Laterality Modality Lung Computed Tomogra phy 05/29/2024 5:28 PM EST Narrative 05/29/2024 5:29 PM EST ? [facility] ?[address] ?[place] [address] ? CT Scan Report ? Signed ? Patient: ChinyereNabila ?MR#: [id number] ?? 847 ? : 1955 ?Acct:[id number] ? Age/Sex: 69 / F ?ADM Date: 05/29/24 ? Loc: HO.CT ? Attending Dr: Caroline Dupont PA-C ? Ordering Physician: Pat Brown NP ?? Date of Service: 05/29/24 ?? Procedure(s): CT lung screening ?? Accession Number(s): [id number] ? cc: Name,Georgi AUSTIN; Pat Brown NP ? Report Number: ?? [id number]: Total DLP = ?? 95.00 mGy-cm ? CLINICAL HISTORY: F17.210 - Nicotine dependence, cigarettes, uncomplicated ? CT lung cancer screening (LDCT) ? Comparison: CT/SR - CT LUNG SCREENING - 07/16/22 09:55 EDT ?? CT/ND - CT LUNG SCREENING - 01/24/21 14:10 [...] DD/ 1728 ? TD/TT: 05/29/24 1728 ? Health Promotion Specialist: ? Procedure Note Rosa, Image - 05/29/[address] [address] [address] Scan Report Signed Patient: Nabila Whitlock MMR#: [id number] 847 : 6Acct:[id number] Age/Sex: 69 / FADM Date: 05/29/24 Loc: HO.CT Attending Dr: Caroline Dupont PA-C Ordering Physician: Pat Brown NP Date of Service: 05/29/24 Procedure(s): CT lung screening Accession Number(s): [id number] cc: Georgi Alarcon MD; Pat Brown NP Report Number: [id number]: Total DLP = 95.00 mGy-cm CLINICAL HISTORY: F17.210 - Nicotine dependence, cigarettes, uncomplicated CT lung cancer screening (LDCT) Comparison: CT/SR - CT LUNG SCREENING - 07/16/22 09:[address]/ND - CT LUNG SCREENING - 01/24/21 14:10 [...] signed by Paulie Higgins MD in OV> 05/29/241728 DD/ 27 TD/TT: 05/29/241727 Health Promotion Specialist: [facility] External Provider IM CT PROCEDURES Final Result * (ABNORMAL) Lipid Panel, Standard (04/14/2024 10:08 AM EST) Triglycerides 214(H) <150 mg/dL [facility] Comment:Slight Lipemia.Kari able Triglyceride: less than 150 mg/dLBorderline High Triglyceride 150-199 mg/dLHigh Triglyceride: 200-499 mg/dLVery High Triglyceride: greater than or equal to 5OO mg/dL Cholesterol 125 <200 mg/dL [facility] Comment:Desirable Cholestero l: less than 200 mg/dLBorderline High Cholesterol: 200-239 mg/dLHigh Cholesterol: greater than 239 mg/dL LDL Cholesterol Calculated 37 <100 mg/dL [facility] Comment:Desirable LDL: less than 100 mg/dLNear Optimal/Above Optimal LDL: 110- 129 mg/dLBorderline High LDL: 130-159 mg/dLHigh LDL: 160-189 mg/dLVery High LDL: greater than or equal to 190 mg/dL HDL Cholesterol 46 >40 mg/dL [facility] Comment:Desirable HDL: great er than 40 mg/dL Note: This HDL assay may give artificially low results in patients with liver disease. Blood Venous blood specimen / Unknown 04/14/2024 10:08 AM EST 04/14/2024 11:04 AM EST us Georgi Alarcon MD LAB BLOOD ORDERABLES Final Resul t [facility] [address] [place] [phone] * (ABNORMAL) Comprehensive Metabolic Panel (04/14/2024 10:08 AM EST) Sodium 140 135 - 145 mmol/L [facility] Potassium 4.0 3.3 - 5.1 mmol/L [facility] Chloride 100 96 - 108 mmol/L [facility] Carbon Dioxide 31(H) 22 - 29 mmol/L [facility] Anion Gap 13 12 - 20 [facility] Urea Nitrogen (BUN) 16 9 - 16 mg/dL [facility] Creatinine, Serum 0.80 0.5 - 1.4 mg/dL [facility] Estimated Glomerular Filt Rate >60 [facility] Comment:Chronic Kidney Disea se: Estimated GFR < 60 mL/min/1.35y4Imhxrt Kidney Disease: Estimated GFR < 15 mL/min/1.73m2 Glucose 144(H) 60 - 115 mg/dL [facility] Calcium 9.7 8.4 - 10.2 mg/dL [facility] Bilirubin, Total 0.5 0.0 - 1.0 mg/dL [facility] Aspartate Amino Transferase 59(H) 5 - 31 U/L [facility] Alanine Aminotransferase 29 0 - 31 U/L [facility] Total Protein 7.0 6.5 - 8.0 g/dL [facility] Albumin Level 4.2 3.5 - 5.0 g/dL [facility] Alkaline Phosphatase 79 39 - 117 U/L [facility] Blood Venous blood specimen / Unknown 04/14/2024 10:08 AM EST 04/14/2024 11:04 AM EST us Georgi Name MD LAB BLOOD ORDERABLES Final Resul t [facility] [address] [place] [phone] * BI Mammogram Screening Tomosynthesis Bilateral (05/05/2023 12:15 PM EST) Anatomical Region Laterality Modality Breast Bilateral Mammography 05/05/2023 12:1 5 PM EST Narrative 05/25/2023 10:53 AM EST ? [facility] ? [address] ?[place] [address] ? Mammography Report ? Signed ? Patient: Donnis,Nabila M ?MR#: [id number] ?? 847 ? : 1955 ?Acct:[id number] ? Age/Sex: 68 / F ?ADM Date: /03/24 ? Loc: HO.MAMMO ? Attending Dr: Georgi Alarcon MD ? Ordering Physician: Georgi Alarcon MD ?Results: 1Negative ? Date of Service: 05/05/23 ?Follow Up: 1 Year From Orig ?? inal Mammogram ? Procedure(s): MM tomosynthesis screening BI ?? Accession Number(s): [id number] ? cc: Dorian,Georgi AUSTIN ? EXAMINATION: ?? [...] by Maru Umana MD in OV> ? 05/25/231049 ? DD/ 14 ? TD/TT: ? Health Promotion Specialist: ? Procedure Note Susyter, Image - [facility] [address] [place] [address] Mammography Report Signed Patient: Nabila Whitlock MMR#: [id number] 847 : 6Acct:[id number] Age/Sex: 68 / FADM Date: 05/05/23 Loc: HO.MAMMO Attending Dr: Georgi Alarcon MD Ordering Physician: Georgi Alarconesults: 1Negative Date of Service: 05/05/23Follow Up: 1 Year From Orig inal Mammogram Procedure(s): MM tomosynthesis screening BI Accession Number(s): [id number] cc: Georgi Alarcon MD EXAMINATION: MM SCREENING [...] MD Signed By: <Electronically signed by Maru Uamna MD in OV> 05/25/23 1050 DD/ 1215 TD/TT: Health Promotion Specialist: Georgi Alarcon IMG BI PROCEDURES Final Result * HM Hepatitis C Antibody (06/29/2016) Hepatitis C Antibody Nonreactive Blood Georgi Name HEALTH MAINTENANCE Final Result from Last 3 Months or Most Recently Relevant to Health Maintenance Insurance (Home) (Work) [address] [place], [place] MEDICARE Care Teams Car Chaser Relationship Specialty Start Date End Date Name, MD Georgi [address] [place] [address] PCP - General Family Medicine 07/16/20
--- OUTSIDE RECORDS SUMMARY | 2024-05-30 13:46 | XMS_ITS | Encounter Summary ---
Author Organization [employer] Address [address] [facility] 7t [place] [address] Care Team Providers Care Adobe Cq Developer Name Role Phone Name, Georgi AUSTIN Primary Care Provider [phone] Reason for Visit * Reason Comments Med Refill Encounter Details Date Type Department Care Team ([facility] st Contact Info) Description 03/24/2023 Refill [facility] [address] [place] [address] Name, MD Georgi [address] [place] [address] Social History Tobacco Use Types Packs/Day Years [...] on filedocumented in this encounter Care Teams Adobe Cq Developer Relationship Specialty Start Date End Date Name, MD Georgi [address] [place] [address] PCP - General Family Medicine 07/16/20 documented as of this encounter
--- OUTSIDE RECORDS SUMMARY | 2024-05-30 13:46 | XMS_ITS | Encounter Summary ---
Author Organization [employer] Address [address] [facility] 7t [place] [address] Care Team Providers Care Sleever Name Role Phone Name, Georgi AUSTIN Primary Care Provider [phone] Encounter Details Date Type Department Care Team (Late st Contact Info) Description 06/05/2022 Orders Only [facility] MED & PEDS [address] [place] [address] Jena Lerma LPN Social History Tobacco Use [...] on filedocumented in this encounter Care Teams Sleever Relationship Specialty Start Date End Date Name, MD Georgi [address] [place] [address] PCP - General Family Medicine 07/16/20 documented as of this encounter
--- OUTSIDE RECORDS SUMMARY | 2024-05-30 13:46 | XMS_ITS | Encounter Summary ---
Author Organization [employer] Address [address] [facility] [address] h [address] [address] Care Team Providers Care Retail Pricing Coordinator Name Role Phone Name, Georgi AUSTIN Primary Care Provider [phone] Reason for Visit * Reason Comments Med Refill Encounter Details Date Type Department Care Team ([facility] st Contact Info) Description 03/23/2023 Refill [facility]ICINE [address] [place] [address] Name, MD Georgi [address] [place] [address] Social History Tobacco Use Types Packs/Day Years [...] on filedocumented in this encounter Care Teams Retail Pricing Coordinator Relationship Specialty Start Date End Date Name, MD Georgi [address] [place] [address] PCP - General Family Medicine 07/16/20 documented as of this encounter
--- OUTSIDE RECORDS SUMMARY | 2024-05-30 13:46 | XMS_ITS | Encounter Summary ---
Author Organization [employer] Address [address] [facility] 7t [place] [address] Care Team Providers Care Brim Welt Sewing Machine Operator Name Role Phone Name, Georgi AUSTIN Primary Care Provider [phone] Encounter Details Date Type Department Care Team (Late st Contact Info) Description 05/06/2022 Orders Only [facility] & PEDS [address] [place] [address] Jena Lerma LPN Social History Tobacco Use [...] on filedocumented in this encounter Care Teams Brim Welt Sewing Machine Operator Relationship Specialty Start Date End Date Name, MD Georgi [address] [place] [address] PCP - General Family Medicine 07/16/20 documented as of this encounter
== END 2024-05-30 12:54 | disposition home or self-care (01) ==
LOC: HO.MAMMO 12:53
PROVIDERS: PCP Internal Medicine Geriatric Medicine; Visit Provider Internal Medicine Geriatric Medicine
DX: Z12.31 Encounter for screening mammogram for malignant neoplasm of breast (principal)
CPT/HCPCS: 77063; 77067

== ENCOUNTER → 2024-05-30 13:00 | Outpatient (BNV) | payer MEDICARE, SELFPAY | PROVIDERS: PCP Internal Medicine Geriatric Medicine; Visit Provider Internal Medicine | DX: Z12.31 Encounter for screening mammogram for malignant neoplasm of breast (principal) | CPT/HCPCS: 77063; 77067 ==

== ENCOUNTER 2024-08-10 10:14 | Outpatient (REF) | payer MEDICARE, SELFPAY ==
[2024-08-10 11:38] LABS: MANUAL DIFF FLAG NO
--- OUTSIDE RECORDS SUMMARY | 2024-08-10 12:02 | XMS_ITS | Encounter Summary ---
Author Organization [employer] Address 75 [facility] 7t [place] [address] Care Team Providers Care Bruise Trimmer Name Role Phone Name, Georgi AUSTIN Primary Care Provider [phone] Reason for Visit * Reason Comments Med Refill Encounter Details Date Type Department Care Team ([facility] st Contact Info) Description 03/23/2023 Refill [facility] [address] [place] [address] Name, MD Georgi [address] [place] [address] Social History Tobacco Use Types Packs/Day Years [...] on filedocumented in this encounter Care Teams Bruise Trimmer Relationship Specialty Start Date End Date Name, MD Georgi [address] [place] [address] PCP - General Family Medicine 07/16/20 documented as of this encounter
--- OUTSIDE RECORDS SUMMARY | 2024-08-10 12:02 | XMS_ITS | Encounter Summary ---
Author Organization [employer] Address [address] [facility] 7t [place] [address] Care Team Providers Care Tax Services Specialist Name Role Phone Name, Georgi AUSTIN Primary Care Provider [phone] Reason for Visit * Reason Onset Date Comments Appointment Request 08/07/2024 Encounter Details Date Type Department Care Team ([facility] st Contact Info) Description 08/07/2024 Telephone [facility] [address] [place] [address] Name, MD Georgi [address] [place] [address] Appointment Request Social History Tobacco Use Types Packs/Day Years [...] AM EDT documented as of this encounter Miscellaneous Notes * Telephone Encounter - Cordelia Mcnair - 08/07/2024 8:38 AM EDT Tc from pt calling to verify next upcoming appointment , handbook writer notify theres no upcoming appointment due to appointment for 08/08 was cancelled. Pt ask why appointment was cancelled . Please return call [phone] documented in this encounter Plan of Treatment Not on file documented as of this encounter Visit Diagnoses Not on filedocumented in this encounter Care Teams Tax Services Specialist Relationship Specialty Start Date End Date Name, MD Georgi [address] [place] [address] PCP - General Family Medicine 07/16/20 documented as of this encounter
--- OUTSIDE RECORDS SUMMARY | 2024-08-10 12:02 | XMS_ITS | Encounter Summary ---
Author Organization [employer] Address [address] [facility] [address]t [place] [address] Care Team Providers Care Senior Insight Manager International Name Role Phone Name, Georgi AUSTIN Primary Care Provider [phone] Encounter Details Date Type Department Care Team (Latest Contact Info) Description 08/10/2024 Travel Social History Tobacco Use Types Packs/Day Years [...] on filedocumented in this encounter Care Teams Senior Insight Manager International Relationship Specialty Start Date End Date Name, MD Georgi [address] [place] [address] PCP - General Family Medicine 07/16/20 documented as of this encounter
--- OUTSIDE RECORDS SUMMARY | 2024-08-10 12:02 | XMS_ITS | Encounter Summary ---
Author Organization [employer] Address 75 [facility] 7t [place] [address] Care Team Providers Care Pulp Drier Firer Name Role Phone Name, Georgi AUSTIN Primary Care Provider [phone] Encounter Details Date Type Department Care Team (Late st Contact Info) Description 05/06/2022 Orders Only [facility] [address] [place] [address] Jena Lerma LPN Social History Tobacco Use [...] on filedocumented in this encounter Care Teams Pulp Drier Firer Relationship Specialty Start Date End Date Name, MD Georgi [address] [place] [address] PCP - General Family Medicine 07/16/20 documented as of this encounter
--- OUTSIDE RECORDS SUMMARY | 2024-08-10 12:02 | XMS_ITS | Encounter Summary ---
Author Organization [employer] Address [address] [facility] 7t [place] [address] Care Team Providers Care Shuttle Truck Driver Name Role Phone Name, Georgi AUSTIN Primary Care Provider [phone] Encounter Details Date Type Department Care Team (Late st Contact Info) Description 06/05/2022 Orders Only [facility] & PEDS [address] [place] [address] Jena Lerma LPN Social History Tobacco Use [...] on filedocumented in this encounter Care Teams Shuttle Truck Driver Relationship Specialty Start Date End Date Name, MD Georgi [address] [place] [address] PCP - General Family Medicine 07/16/20 documented as of this encounter
--- OUTSIDE RECORDS SUMMARY | 2024-08-10 12:02 | XMS_ITS | Encounter Summary ---
Author Organization [employer] Address [address] [facility] 7[address] [place] [address] Care Team Providers Care Charge Machine Operator Name Role Phone Name, Georgi AUSTIN Primary Care Provider [phone] Reason for Visit * Reason Comments Follow-up Encounter Details Date Type Department Care Team ([facility] st Contact Info) Description 08/10/2024 9:15 AM EDT Office Visit [facility] [address] [place] [address] Name, MD Georgi [address] [place] [address] Moderate chronic obstructive pulmonary disease (CMS/HCC) (Primary Dx); Tobacco dependence; History of CVA (cerebrovascular accident); Erythrocytosis; Hyperglycemia; Hypertension, unspecified type; Healthcare maintenance Social History Tobacco Use Types Packs/Day Years [...] AM EDT documented as of this encounter Last Filed Vital Signs Vital Sign Reading Time Taken Comments Blood Pressure 122/72 08/10/2024 9:35 AM EDT Pulse 101 08/10/2024 9:35 AM EDT Temperature 36.2 ??C (97.1 ??F) 08/10/2024 9:35 AM ED T Respiratory Rate 12 08/10/2024 9:35 AM EDT Oxygen Saturation 94% 08/10/2024 9:35 AM EDT Inhaled Oxygen Concentration - - Weight 78.1 kg (172 lb 3.2 oz) 08/10/2024 9:35 A M EDT Height 157.5 cm (5' 2 ) 08/10/2024 9:35 AM EDT Body Mass Index 31.5 08/10/2024 9:35 AM EDT documented in this encounter Progress Notes * Georgi Alarcon MD - 08/10/2024 9:15 AM EDT Subjective Patient ID: Nabila Whitlock is a 69 y.o. female who presents for Follow-up. Patient comes for a follow-up visit. She recently quit smoking and she is congratulated. We discussed the most recent low radiation CT scan of the chest that was negative for malignancy. She is usingher inhalers as prescribed but she is worried about the high cost of the medications since she had to switch her insurance. She has an upcoming appointment with pulmonology next week and she is encouraged to discuss switching to cheaper alternatives. BP is well-controlled. She is using her medications as prescribed including her aspirin and statin.She does not have any neurological deficit. She had full recovery after a stroke back in 2021. We discussed several results of recent mammogram. She does not want to have another colonoscopy. She does not want the COVID or flu vaccines. She is encouraged to inquire about RSV and shingles vaccination at the pharmacy. The patient is in good spirits and requested a refill of her sertraline and I agreed. Review of Systems Constitutional: Negative for chills and fever. HENT: Negative for sore throat. Respiratory: Negative for cough, shortness of breath and wheezing. Cardiovascular: Negative for chest pain, palpitations and leg swelling. Gastrointestinal: Negative for abdominal pain. Visit Vitals BP 122/72 (BP Location: Left arm, Patient Position: Sitting, BP Cuff Size: Adult) Pulse 101 Temp 97.1 ??F (36.2 ??C) (Temporal) Resp 12 Ht 5' 2 (1.575 m) Wt 172 lb 3.2 oz (78.1 kg) SpO2 94% BMI 31.50 kg/m?? Smoking Status Some Days BSA 1.85 m?? Objective Physical Exam Constitutional: Appearance: Normal appearance. Cardiovascular: Rate and Rhythm: Normal rate and regular rhythm. Heart sounds: No murmur heard. No gallop. Pulmonary: Effort: Pulmonary effort is normal. No respiratory distress. Breath sounds: Normal breath sounds. No wheezing. Musculoskeletal: Right lower leg: No edema. Left lower leg: No edema. Neurological: General: No focal deficit present. Mental Status: She is alert. Motor: No weakness. Gait: Gait normal. Assessment/Plan Diagnoses and all orders for this visit: Moderate chronic obstructive pulmonary disease (CMS/HCC) Comments: She is congratulated on quitting smoking. I encouraged to discuss switching to cheaper inhalers with her human factors ergonomist. Tobacco dependence Comments: She is congratulated on quitting recently. She is encouraged to continue yearly low radiation CT scan of the chest History of CVA (cerebrovascular accident) Comments: No residual deficit. Continue current cardioprotective regimen Erythrocytosis Comments: Recheck CBC. She missed appointment with oncology a couple months back. Orders: - CBC auto differential; Future Hyperglycemia Comments: Patient last fasting blood sugar was 144. She does not have any symptoms of hyperglycemia. I will recheck BMP and hemoglobin A1c. Orders: - Basic Metabolic Panel; Future - Hemoglobin A1c; Future Hypertension, unspecified type Comments: Well-controlled on current medications. Orders: - Basic Metabolic Panel; Future Healthcare maintenance Comments: Patient refuses another colonoscopy. She is encouraged to discuss RSV and shingles vaccine at the pharmacy. She refuses COVID and flu vaccine. I refilled her Zoloft for depression Other orders - sertraline (Zoloft) 100 MG tablet; Take 1 tablet (100 mg) by mouth in the morning. documented in this encounter Plan of Treatment Scheduled Orders Name Type Priority Associated Diagnoses Orde r Schedule Basic Metabolic Panel Lab Routine Hyperglycemia Hypertension, unspecified type Expected: 08/10/2024 (Approximate), Expires: 08/10/2025 CBC auto differential Lab Routine Erythrocytosis Expected: 08/10/2024 (Approximate), Expires: 08/10/2025 Hemoglobin A1c Lab Routine Hyperglycemia Expected: 08/10/2024 (Approximate), Expires: 08/10/2025 documented as of this encounter Visit Diagnoses Diagnosis Moderate chronic obstructive pulmonary disease (CMS/HCC)- Primary Chronic airway obstruction, not elsewhere classified Tobacco dependence Tobacco use disorder History of CVA (cerebrovascular accident) Transient ischemic attack (TIA), and cerebral infarction without residual deficits Erythrocytosis Polycythemia, secondary Hyperglycemia Other abnormal glucose Hypertension, unspecified type Healthcare maintenance documented in this encounter Care Teams Charge Machine Operator Relationship Specialty Start Date End Date Name, MD Georgi [address] [place] [id number] PCP - General Family Medicine 07/16/20 documented as of this encounter
--- OUTSIDE RECORDS SUMMARY | 2024-08-10 12:02 | XMS_ITS | Clinical Summary ---
Author Organization [employer] Address [address] [facility] 7[address] [place] [address] Care Team Providers Care Vascular Ultrasound Technologist Name Role Phone Name, Georgi AUSTIN Primary Care Provider [phone] Allergies No known active allergies Medications Spiriva Respimat 1.25 MCG/ACT inhaler 023 Active Advair Diskus 250-50 MCG/ACT aerosol powder INHALE 1 PUFF BY MOUTH TWICE DAILY. RINSE MOUTH AFTER USING. 023 Active Misc. Devices (Pulse Oximeter) misc Use as needed 1 each 023 Active albuterol (Ventolin HFA) 108 (90 Base) MCG/ACT inhalerIndicati ons:Asthma, unspecified asthma severity, unspecified whether complicated, unspecified whether persistent INHALE 2 PUFFS BY MOUTH EVERY 4 TO 6 HOURS NEEDED 18 g 024 Active mometasone (Elocon) 0.1 % ointmentIndicat ions:Rash Apply topically Once per day. 45 g 2 024 2024 Active lisinopril 20 MG tabletIndicatio ns:Hypertension , unspecified type TAKE 1 TABLET BY MOUTH EVERY DAY 90 tablet 3 024 Active aspirin (Aspirin Low Dose) 81 MG EC tablet TAKE 1 TABLET BY MOUTH EVERY DAY 90 tablet 3 024 Active albuterol 1.25 MG/3ML nebulizer solutionIndicat ions:COPD exacerbation (CMS/HCC) Take 6 mL (2.5 mg) by nebulization every 4 (four) hours if needed for wheezing. 75 mL 11 024 2024 Active ipratropium-alb uterol (Duo-Neb) 0.5-2.5 mg/3 mL nebulizer solutionIndicat ions:Moderate chronic obstructive pulmonary disease (CMS/HCC) Take 3 mL by nebulization every 6 (six) hours. 180 mL 11 024 2024 Active hydroCHLOROthia zide (HYDRODiuril) 25 MG tabletIndicatio ns:Hypertension , unspecified type Take 1 tablet (25 mg) by mouth in the morning. 90 tablet Active atorvastatin (Lipitor) 80 MG tablet TAKE 1 TABLET BY MOUTH EVERY DAY 90 tablet Active sertraline (Zoloft) 100 MG tablet Take 1 tablet (100 mg) by mouth in the morning. 90 tablet 3 025 2025 Active azithromycin (Zithromax) 250 MG tablet Take 2 tabs day and then 1 tab daily 6 tablet 024 2024 Discontinued sertraline (Zoloft) 100 MG tablet TAKE 1 TABLET BY MOUTH EVERY DAY IN THE MORNING 30 tablet 1 025 2024 Discontinued sertraline (Zoloft) 100 MG tablet TAKE 1 TABLET BY MOUTH EVERY MORNING 30 tablet 1 025 2024 Discontinued(R eorder (will not trigger notification to Pharmacy)) Active Problems Problem Noted Date Diagnosed Date Pain in lower limb 07/08/2022 Moderate chronic obstructive pulmonary disease 0 07/08/2022 Erythrocytosis 07/08/2022 History of CVA (cerebrovascular accident) 2022 Overview (07/08/2022): MRI of brain showed acute infarct of left ventral lara 12/2021 Hypertensive disorder 06/05/2022 Polyp of colon 06/29/2016 Recurrent depression 06/17/2012 Encounters Date Type Department Care Team Description 08/10/2024 9:15 AM EDT Office Visit [facility] [address] [place] [phone] Name, MD Georgi Moderate chronic obstructive pulmonary disease (CMS/HCC) (Primary Dx); Tobacco dependence; History of CVA (cerebrovascular accident); Erythrocytosis; Hyperglycemia; Hypertension, unspecified type; Healthcare maintenance 08/10/2024 Travel 08/07/[address] [facility] [address] [place] [address] Georgi Alarcon MD Appointment Request 08/01/[address] [facility] [address] [place] [address] Laquita Ferreira [place] [facility] Cancelled Appt 07/28/[address] [facility] [address] [place] [address] Georgi Alarcon MD 07/14/2024 Population Health Risk Score [facility] Department [address] [phone] Provider, Population Health Generic 06/29/[address] [facility] [address] [place] [address] Georgi Alarcon MD Durable Medical Equipment (Nebulizer ) 06/05/[address] [facility] [address] [place], [place] [phone] NameGeorgi MD Hypertension, unspecified type 05/29/2024 Orders Only [facility] External Provider, [facility] 05/28/[address] [facility] [address] [place] [address] Brice Rivera MD from Last 3 Months Immunizations Name Administration [...] Mass Index 31.5 08/10/2024 9:35 AM EDT Plan of Treatment Health Maintenance Due Date Last Done Comments CT Colonography 1955 Colonoscopy 1955 Colorectal Cancer Screening 1955 FIT DNA/Cologuard 1955 FIT 1955 FOBT 1955 Sigmoidoscopy 1955 Zoster Vaccines (1 of 2) 2006 RSV Patients and Patients Aged 60 years or older (1 - Risk 60-74 years 1-dose series) 2016 Depression Screening 12/10/2023 12/09/2022, 12/10/19 23 COVID-19 Vaccine (3 - 2023- season) 2024 12/24/2020, 11/29/2020 Influenza Vaccine (#1) 2024 02/12/2015 SDOH Screening 07/15/2024 07/16/2023 Alcohol/Substance Use Screening 11/30/2024 12/01/2023 Tobacco Screening 08/10/2025 08/10/2024 Mammogram 05/30/2026 05/30/2024, 05/05/2023 Lipid Panel 04/14/2029 04/14/2024, 08/01, 07/10/2022, Additional history exists DTaP/Tdap/Td Vaccines (3 - Td or Tdap) 08/02/2032 08/02/2022, 06/26/2013 Hepatitis C Screening Completed 06/29/2016 Pneumococcal Vaccine: 50+ Years Completed 01/13/2022 HIB Vaccines Aged Out [...] Procedure Name Priority Date/Time Associated Diagnosis Comments BI MAMMOGRAM SCREENING TOMOSYNTHESIS BILATERAL Routine 05/30/2024 12:56 PM EST LDCT LUNG SCREENING Routine 05/29/2024 5 :28 PM EST LIPID PANEL, STANDARD Routine 04/14/2024 10:08 AM EST Vaccination refused by patient On statin therapy HM HEPATITIS C ANTIBODY Routine 06/29/2016 from Last 3 Months or Most Recently Relevant to Health Maintenance Results * BI Mammogram Screening Tomosynthesis Bilateral (05/30/2024 12:56 PM EST) Anatomical Region Laterality Modality Breast Bilateral Mammography 05/30/2024 12:5 6 PM EST Narrative 06/09/2024 3:55 PM EST ? [facility] ? [address] ?[place] [address] ? Mammography Report ? Signed ? Patient: ChinyereNabila Chong ?MR#: [id number] ?? [id number] ? : 1955 ?Acct:[id number] ? Age/Sex: 69 / F ?ADM Date: 05/30/ ? Loc: HO.MAMMO ? Attending Dr: Georgi Name MD ? Ordering Physician: Name,Georgi MD ?Results: 1Negative ? Date of Service: 05/30/ ?Follow Up: 1 Year From Orig ?? inal Mammogram ? Procedure(s): MM tomosynthesis screening BI ?? Accession Number(s): [id number] ? cc: Name,Georgi ? EXAMINATION: ?? MM SCREENING DIGITAL BREAST TOMOSYNTHESIS, BILATERAL ? CLINICAL INFORMATION: ? Screening. Asymptomatic. ? COMPARISON: ?? Mammography: Comparison is made with available priors ? TECHNIQUE: ?? Digital breast mammography with tomosynthesis is performed in both the ?? craniocaudal and mediolateral oblique views along with computer-aided ?? detection (CAD). ? FINDINGS: ?? There are scattered areas of fibroglandular density (ACR BI-RADS breast ?? composition Category b). ? There are no significant masses, abnormal [...] due date for their next mammogram. ? Electronically signed by: ??Gabriella Mcpherson DO ??06/09/2024 03:52 PM EST ?? RP ? Dictated By: ?Gabriella Mcpherson DO ? Signed By: ?<Electronically signed by Gabriella Mcpherson, DO in OV> ? 06/09/24 1552 ? DD/ 1256 ? TD/TT: 05/30/24 1310 ? Powder Expert: ? Procedure Note Rosa, Image - 06/09/2024 [facility] [address] [place] [address] Mammography Report Signed Patient: Nabila Whitlock MMR#: [id number] : 6Acct:[id number] Age/Sex: 69 / FADM Date: 05/30/24 Loc: [facility] Attending Dr: Georgi Alarcon MD Ordering Physician: Georgi Alarconesults: 1Negative Date of Service: 05/30/24Follow Up: 1 Year From Orig inal Mammogram Procedure(s): MM tomosynthesis screening BI Accession Number(s): [id number] cc: Georgi Alarcon MD EXAMINATION: MM SCREENING DIGITAL BREAST TOMOSYNTHESIS, BILATERAL CLINICAL INFORMATION: Screening. Asymptomatic. COMPARISON: Mammography: Comparison is made with available priors TECHNIQUE: Digital breast mammography with tomosynthesis is performed in both the craniocaudal and mediolateral oblique views along with computer-aided detection (CAD). FINDINGS: There are scattered areas of fibroglandular density (ACR BI-RADS breast composition Category b). There are no significant masses, abnormal calcifications, [...] target due date for their next mammogram. Electronically signed by: Gabriella Mcpherson DO 06/09/2024 03:52 PM EST RP Dictated By: Gabriella Mcpherson DO Signed By: <Electronically signed by Gabriella Mcpherson DO in OV> 06/09/24 1552 DD/ 1256 TD/TT: 05/30/24 1310 Powder Expert: us Georgi Name IMG BI PROCEDURES Final Result * CT Lung Screening Low dose (05/29/2024 5:28 PM EST) Anatomical Region Laterality Modality Lung Computed Tomogra phy 05/29/2024 5:28 PM EST Narrative 05/29/2024 5:29 PM EST ? [facility] ?[address] ?[place] [address] ? CT Scan Report ? Signed ? Patient: Donnis,Nabila M ?MR#: [id number] ?? [id number] ? : 1955 ?Acct:[id number] ? Age/Sex: 69 / F ?ADM Date: 01/27/25 ? Loc: HO.CT ? Attending Dr: Caroline Dupont PA-C ? Ordering Physician: Pat Brown NP ?? Date of Service: 05/29/24 ?? Procedure(s): CT lung screening ?? Accession Number(s): [id number] ? cc: Name,Georgi AUSTIN; Pat Brown NP ? Report Number: ?? [id number]: Total DLP = ?? 95.00 mGy-cm ? CLINICAL HISTORY: F17.210 - Nicotine dependence, cigarettes, uncomplicated ? CT lung cancer screening (LDCT) ? Comparison: CT/SR - CT LUNG SCREENING - 07/16/22 09:55 EDT ?? CT/[place] - CT LUNG SCREENING - 01/24/21 14:10 [...] by Paulie Higgins MD in OV> ? 05/29/249 ? DD/ 1728 ? TD/TT: 05/29/24 1728 ? Powder Expert: ? Procedure Note Susyter, Image - 05/29/[address] [place] [address] [address] Scan Report Signed Patient: Nabila Whitlock MMR#: [id number] : 6Acct:[id number] Age/Sex: 69 / FADM Date: 05/29/24 Loc: HO.CT Attending Dr: Caroline Dupont PA-C Ordering Physician: Pat Borwn NP Date of Service: 05/29/24 Procedure(s): CT lung screening Accession Number(s): [id number] cc: Name,Georgi AUSTIN; Pat Brown NP Report Number: [id number]: Total DLP = 95.00 mGy-cm CLINICAL HISTORY: F17.210 - Nicotine dependence, cigarettes, uncomplicated CT lung cancer screening (LDCT) Comparison: CT/SR - CT LUNG SCREENING - 07/16/22 09:[address]/[place] - CT LUNG SCREENING - 01/24/21 14:10 [...] in OV> 05/29/241728 DD/ 27 TD/TT: 05/29/241727 Powder Expert: [facility] External Provider IMG CT PROCEDURES Final Result * (ABNORMAL) Lipid Panel, Standard (04/14/2024 10:08 AM EST) Triglycerides 214(H) <150 mg/dL [facility] Comment:Slight Lipemia.Kari able Triglyceride: less than 150 mg/dLBorderline High Triglyceride 150-199 mg/dLHigh Triglyceride: 200-499 mg/dLVery High Triglyceride: greater than or equal to 5OO mg/dL Cholesterol 125 <200 mg/dL [facility] Comment:Desirable Cholestero l: less than 200 mg/dLBorderline High Cholesterol: 200-239 mg/dLHigh Cholesterol: greater than 239 mg/dL LDL Cholesterol Calculated 37 <100 mg/dL [facility] Comment:Desirable LDL: less than 100 mg/dLNear Optimal/Above Optimal LDL: 110- 129 mg/dLBorderline High LDL: 130-159 mg/dLHigh LDL: 160-189 mg/dLVery High LDL: greater than or equal to 190 mg/dL HDL Cholesterol 46 >40 mg/dL [facility] Comment:Desirable HDL: great er than 40 mg/dL Note: This HDL assay may give artificially low results in patients with liver disease. Blood Venous blood specimen / Unknown 04/14/2024 10:08 AM EST 04/14/2024 11:04 AM EST us Georgi Alarcon MD LAB BLOOD ORDERABLES Final Resul t [facility] [address] [place], [place] [phone] * HM Hepatitis C Antibody (06/29/2016) Hepatitis C Antibody Nonreactive Blood us Georgi Alarcon MD HEALTH MAINTENANCE Final Result from Last 3 Months or Most Recently Relevant to Health Maintenance Insurance [employer] [employer] O Care Teams Vascular Ultrasound Technologist Relationship Specialty Start Date End Date Name, MD Georgi [address] [place] [address] PCP - General Family Medicine 07/16/20
--- OUTSIDE RECORDS SUMMARY | 2024-08-10 12:02 | XMS_ITS | Encounter Summary ---
Author Organization [employer] Address [address] [facility] [address]t [place] [address] Care Team Providers Care Eyelet Punch Operator Name Role Phone Name, Georgi AUSTIN Primary Care Provider [phone] Encounter Details Date Type Department Care Team (Late st Contact Info) Description 10/05/2022 Abstract [facility] [address] [place] [address] Name, MD Georgi [address] [place] [address] Social History Tobacco Use Types Packs/Day Years [...] on filedocumented in this encounter Care Teams Eyelet Punch Operator Relationship Specialty Start Date End Date Name, MD Georgi [address] [place] [address] PCP - General Family Medicine 07/16/20 documented as of this encounter
--- OUTSIDE RECORDS SUMMARY | 2024-08-10 12:02 | XMS_ITS | Encounter Summary ---
Author Organization [employer] Address [address] [facility] [address] [place] [address] Care Team Providers Care Material Manager Name Role Phone Name, Georgi AUSTIN Primary Care Provider [phone] Reason for Visit * Reason Comments Med Refill Encounter Details Date Type Department Care Team ([facility] st Contact Info) Description 03/24/2023 Refill [facility] [address] [place] [address] Name, MD Georgi [address] [place] [address] Social History Tobacco Use Types Packs/Day Years [...] on filedocumented in this encounter Care Teams Material Manager Relationship Specialty Start Date End Date Name, MD Georgi [address] [place] [address] PCP - General Family Medicine 07/16/20 documented as of this encounter
[2024-08-10 12:05] LABS: Basophils Absolute Auto 0.1 X10*3/uL (0.0-0.2); Basophils Percent Auto 0.7 % (0-2); Eosinophils Absolute Auto 0.1 X10*3/uL (0.0-0.4); Eosinophils Percent Auto 0.6 % (0-4); Hematocrit 50.4 % (37.0-47.0); Hemoglobin 16.9 g/dl (12.0-16.0); Imm Gran Abs Auto 0.08 X10*3/uL (0.00-0.03); Imm Gran Pct Auto 0.6 % (0.0-0.4); Lymphocytes Absolute Auto 1.8 X10*3/uL (1.2-4.9); Lymphocytes Percent Auto 13.3 % (20-40); Mean Corpuscular HGB Conc 33.5 g/dl (31.0-35.0); Mean Corpuscular Hemoglobin 31.5 pg (27.0-33.0); Mean Platelet Volume 10.8 fL (9.4-12.3); Monocytes Absolute Auto 1.2 X10*3/uL (0.1-1.2); Neutrophils Absolute Auto 10.3 x10*3/uL (2.0-8.3); Neutrophils Percent Auto 75.8 % (45-73); Platelet Count 282 X10*3/uL (160-400); Red Blood Count 5.36 X10*6/uL (4.20-5.50); Red Cell Distribution Width 15.9 % (11.0-16.0); White Blood Count 13.6 X10*3/uL (4.8-10.8)
[2024-08-10 12:12] LABS: Estimated Average Glucose 123 mg/dL; Hemoglobin A1c % 5.9 % (<6.0); Total Hemoglobin (HGBA1C) 4497.6641 umol/L
[2024-08-10 12:18] LABS: Alanine Aminotransferase 28 U/L (0-31); Albumin Level 4.3 g/dL (3.5-5.0); Alkaline Phosphatase 81 U/L (39-117); Anion Gap 14 (12-20); Aspartate Amino Transferase 34 U/L (5-31); Bilirubin Total 0.6 mg/dL (0.0-1.0); Blood Urea Nitrogen 19 mg/dL (9-16); Calcium 9.3 mg/dL (8.4-10.2); Carbon Dioxide 29 mmol/L (22-29); Chloride 101 mmol/L (96-108); Estimated Glomerular Filt Rate > 60; Glucose Random 137 mg/dL (60-115); Potassium 3.7 mmol/L (3.3-5.1); Sodium 140 mmol/L (135-145)
== END 2024-08-10 10:15 | disposition home or self-care (01) ==
LOC: HO.HHCL 10:14
PROVIDERS: Internal Medicine Medical Oncology; Visit Provider Internal Medicine Geriatric Medicine
DX: D45 Polycythemia vera (principal); R73.9 Hyperglycemia, unspecified
CPT/HCPCS: 36415; 80053; 83036; 85025

== ENCOUNTER 2024-08-15 10:54 | Outpatient (AMB) | payer MEDICARE, SELFPAY ==
[2024-08-15 11:01] VITALS: BP 112/68; PULSE 94; O2SAT 92; BMI 31.3
--- NOTE | 2024-08-15 11:01 | A.OFFVIS_ITS ---
Vital Signs 08/15/24 11:01 Height 5 ft 2 in Weight 171 lb BMI 31.3 BP 112/68 Blood Pressure Location Lt brachial Position Sitting Pulse 94 Pulse Source Pulse Oximeter Pulse Oximetry (%) 92 Oxygen Delivery Method Room Air Intake Visit Reasons: COPD Intake Note: pt is here for follow up and states she is feeling good, and short of breath with some exertion. Apprentice Carpenter Required: No Allergies No Known Allergies [No Known Allergies*] Allergy (Verified 08/15/24 11:09) Medication List - Last Reconciled 08/15/24 by Corazon Posey MD albuterol sulfate 90 mcg/actuation (Ventolin HFA) 2 puffs PO Q4-6H PRN 30 days aspirin (Adult Low Dose Aspirin) 81 mg PO DAILY atorvastatin (Lipitor) 80 mg PO DAILY fluticasone furoate-vilanterol 200-25 mcg/dose (Breo Ellipta) 1 ea PO DAILY hydrochlorothiazide 1 tab PO DAILY ipratropium-albuterol 0.5 mg-3 mg(2.5 mg base)/3 mL 3 mL inhalation Q6H PRN 30 days lisinopril 1 tab PO DAILY sertraline 100 mg PO DAILY tiotropium bromide 1.25 mcg/actuation (Spiriva Respimat) 2 puffs PO DAILY 30 days Do you need a note to return to daycare/school/sports/work: No HPI HPI COPD: Details: This 69 years old very pleasant female is here for 4 months follow-up. Breathing is remaining fairly stable except for mild intermittent cough and shortness of breath if he walks fast or climbs stairs. She has not been smoking and thing got that is helping her breathing. Last LDCT of the chest in May of this year , was benign class 2 . Major complaint today was a high yeboah that she had to pay for Spiriva Respimat and Breo inhalers. [facility] Medical History Hypoxemia History of CVA (cerebrovascular accident) (~2021) Polycythemia vera Hypertension COPD (chronic obstructive pulmonary disease) Nicotine dependence, cigarettes, uncomplicated Colon polyps Depression Surgical History History of colonoscopy Family History Mother Diabetes Colon cancer Father Diabetes Emphysema lung Social History Household Members: Children Housing: Apartment Are you a primary ambulatory care nurse to a significant other at home: No Do you presently have visiting nurse or other home services: No Alcohol intake: never Patient Tobacco Use Status: Former Tobacco user Tobacco use type: Cigarette Cigarette Packs Per Day: 1 Years Smoked: 38 (onset 27 ,1ppd x 38yrs, 35+PYH) Advance Directives Date on File: 11/27/21 service: No Current occupational status: disabled Review of Systems Const All systems reviewed & are unremarkable except as noted in HPI and below ENT Reports no additional complaints Card Denies chest pain, Denies irregular heart rhythm and Denies leg edema Resp Reports as per HPI GI Reports no additional complaints Reports no additional complaints Musc Reports no additional complaints and Reports abnormal gait (Slightly on stable , and she has to be careful, after her stroke.) Skin/Breast Reports system reviewed and no additional complaints, except as documented Neuro Reports no additional complaints and Reports abnormal gait (Slightly on stable , and she has to be careful, after her stroke.) Psych Reports anxiety and Reports depression (Mild, mostly recovered.) Endo Reports no additional complaints Aller/Immun Reports no additional complaints Physical Exam Vital Signs: Last Vital Signs Pulse 94 08/15/24 11:01 BP 112/68 08/15/24 11:01 Pulse Ox 92 08/15/24 11:01 Oxygen Delivery Method Room Air 08/15/24 11:01 BMI result Body Mass Index 31.3 Slightly reddish face , no respiratory distress, Const General: comfortable, no acute distress, alert and awake Orientation/consciousness: patient oriented x3 HEENT Head: Yes normal to inspection General nose exam: No nasal polyps present and No nasal discharge present Face and sinus: Yes sinuses nontender Mouth: oropharynx normal Throat: Yes posterior oropharynx normal Eyes General: appearance normal, both eyes and all related structures Neck Neck: Yes normal visual inspection, Yes no lymphadenopathy, Yes trachea midline and Yes no JVD Thyroid: Thyroid normal Chest Chest palpation & inspection: normal inspection of the chest, normal palpation of entire chest wall and no tenderness Resp Other: Percussion note resonant, breath sounds are distant with prolonged. expiratory phase No rhonchi or wheezes are heard today. Cardio Palpation: normal PMI Rate: regular rate Rhythm: regular rhythm Heart sounds: no gallops and no murmurs GI Palpation (GI): Soft to palpation, nontender, No hepatosplenomegaly present and no masses Auscultation: normal bowel sounds Back/Spine/Pelvis Thoracic/Lumbar Spine: thoracic and lumbar spine normal to inspection Skin General skin exam: no rashes or lesions noted Neuro General: patient oriented x3, gait normal (Normal except that she is slightly on stable if she moves fast) and no focal motor deficits Cranial nerves: Yes CN's II-XII intact bilaterally Extrem General: Yes normal to inspection, Yes no clubbing, cyanosis or edema and Yes no calf tenderness Psych Mental Status: mental status grossly normal and other (Slightly depressed) Speech and movement: Normal speech and movement present Results Reviewed Results Reviewed: Findings of her low-dose CT scan of the chest in May 2024, reviewed with her class 2 benign. Assessment & Plan Assessment & Plan (1) Nicotine dependence, cigarettes, uncomplicated: Comment: (onset 26, 1ppd x 39yrs, now 1-2cig/day - 35+PYH), claims that she has quit smoking ,since the start of this year . Code(s): F17.210 - Nicotine dependence, cigarettes, uncomplicated Category: Medical Plan: She is commended for not smoking. Advised to continue low-dose CT scan once a year. (2) COPD (chronic obstructive pulmonary disease): Comment: (Moderate/Severe COPD, smoking related - Confirmed by pulmonary function test. A good response to bronchodilator therapy is consistent with Asthma/Copd overlap syndrome. She claims that she is doing well on the current medical regimen. Main complaint was the yeboah of the inhalers, I discuss with her the option of switching all treatment by the nebulizer, but she say is it will not be convenience so she likes to continue using the inhalers. Code(s): J44.9 - Chronic obstructive pulmonary disease, unspecified Category: Medical Plan: Breo 200-25 1 inhalation daily Spiriva Respimat 1.252 inhalations daily. Ipratropium-albuterol solution in the nebulizer Q 6 hours p.r.n., when at home And albuterol HFA 2 puffs Q 4-6 hours p.r.n. when outdoors (3) Hypoxemia: Comment: She has had borderline hypoxemia on walking with drop of O2 sat to 89%. Today however her O2 sat was 92% when she walked into the office. In general her lungs are more clear and her oxygenation has improved. Code(s): R09.02 - Hypoxemia Category: Medical Plan: Explained to the patient and advise that she does not need oxygen. (4) Polycythemia vera: Comment: (dx 2017 - likely secondary to Smoking/COPD - Lately has had no phlebotomy . Lost CBC in January 2023 hemoglobin in July 2023 17.4/ hematocrit 51 and on 05/29/2024 Hb/HCT 16.9/50.4 Code(s): D45 - Polycythemia vera Category: Medical Plan: Told that her of polycythemia has improved since she quit smoking. Does not need to have any phlebotomy at this time. Coding Level of Care Code Est Pt Level 3 (25335) Diagnoses Nicotine dependence, cigarettes, uncomplicated F17.210 COPD (chronic obstructive pulmonary disease) J44.9 Hypoxemia R09.02 Polycythemia vera D45
--- OUTSIDE RECORDS SUMMARY | 2024-08-15 13:18 | XMS_ITS | Clinical Summary ---
Author Organization [employer] Address 75 [facility] 7t [place] [address] Care Team Providers Care Weather Stripper Name Role Phone Name, Georgi AUSTIN Primary Care Provider [phone] Allergies No known active allergies Medications Spiriva [...] Description 08/10/2024 9:15 AM EDT Office Visit [facility] [address] [place] [address] Name, MD Georgi Moderate chronic obstructive pulmonary disease (CMS/HCC) (Primary Dx); Tobacco dependence; History of CVA (cerebrovascular accident); Erythrocytosis; Hyperglycemia; Hypertension, unspecified type; Healthcare maintenance 08/10/2024 Travel 08/07/2024 Telephone [facility] [address] [place] [address] Georgi Alarcon MD Appointment Request 08/01/2024 Telephone [facility] [address] [place] [address] Laquita Ferreira MA [facility] Cancelled Appt 07/28/2024 Refill [facility] [address] [place] [address] Georgi Alarcon MD 07/14/2024 Population Health Risk Score [facility] Department [address] [id number] Provider, Population Health Generic 06/29/2024 Telephone [facility] [address] [place] [address] Georgi Alarcon MD Durable Medical Equipment (Nebulizer ) 06/05/2024 Refill [facility] [address] [place], [place] [phone] NameGeorgi MD Hypertension, unspecified type 05/29/2024 Orders Only [facility] External Provider, [facility] 05/28/2024 Refill [facility] [address] [place] [address] Brice Rivera MD from Last 3 Months [...] 07/15/2024 07/16/2023 Alcohol/Substance Use Screening 11/30/2024 12/01/2023 Diabetes: Hemoglobin A1C 08/10/2025 08/10/2024 Tobacco Screening 08/10/2025 08/10/2024 Mammogram 05/30/2026 05/30/2024, [...] Procedure Name Priority Date/Time Associated Diagnosis Comments COMPREHENSIVE METABOLIC PANEL Routine 08/10/2024 10:18 AM EDT CBC WITH AUTO DIFFERENTIAL Routine 08/10/2024 10:18 AM EDT HEMOGLOBIN A1C Routine 08/10/2024 10:18 AM EDT Hyperglycemia BI MAMMOGRAM SCREENING TOMOSYNTHESIS BILATERAL Routine 05/30/2024 12:56 PM EST LDCT LUNG SCREENING Routine 05/29/2024 5 :28 PM EST LIPID PANEL, STANDARD Routine 04/14/2024 10:08 AM EST Vaccination refused by patient On statin therapy HM HEPATITIS C ANTIBODY Routine 06/29/2016 from Last 3 Months or Most Recently Relevant to Health Maintenance Results * (ABNORMAL) CBC auto differential (08/10/2024 10:18 AM EDT) White Blood Count 13.6(H) 4.8 - 10.8 X10*3/uL [facility] Red Blood Count 5.36 4.20 - 5.50 X10*6/uL [facility] Hemoglobin 16.9(H) 12.0 - 16.0 g/dl [facility] Hematocrit 50.4(H) 37.0 - 47.0 % [facility] Mean Corpuscular Volume 94.0 80.0 - 98.0 fL [facility] Mean Corpuscular Hemoglobin 31.5 27.0 - 33.0 pg [facility] Mean Corpuscular HGB Conc 33.5 31.0 - 35.0 g/dl [facility] Red Cell Distribution Width 15.9 11.0 - 16.0 % [facility] Platelet Count 282 160 - 400 X10*3/uL [facility] Mean Platelet Volume 10.8 9.4 - 12.3 fL [facility] Neutrophils Percent Auto 75.8(H) 45 - 73 % [facility] Imm Gran Pct Auto 0.6(H) 0.0 - 0.4 % [facility] Lymphocytes Percent Auto 13.3(L) 20 - 40 % [facility] Monocytes Percent Auto 9.0 2 - 11 % [facility] Eosinophils Percent Auto 0.6 0 - 4 % [facility] Basophils Percent Auto 0.7 0 - 2 % [facility] NRBC Pct Auto 0.0 0.0 - 0.2 /100WBC [facility] Neutrophils Absolute Auto 10.3(H) 2.0 - 8.3 x10*3/uL [facility] Imm Gran Abs Auto 0.08(H) 0.00 - 0.03 X10*3/uL [facility] Lymphocytes Absolute Auto 1.8 1.2 - 4.9 X10*3/uL [facility] Monocytes Absolute Auto 1.2 0.1 - 1.2 X10*3/uL [facility] Eosinophils Absolute Auto 0.1 0.0 - 0.4 X10*3/uL [facility] Basophils Absolute Auto 0.1 0.0 - 0.2 X10*3/uL [facility] NRBC Abs Auto 0.000 0.0 - 0.012 X10*3/uL [facility] 08/10/2024 10:1 8 AM EDT 08/10/2024 11:34 AM EDT us Generic External Data Provider LAB BLOOD ORDERAB LES Final Result [facility] [address] [place] [phone] * Hemoglobin A1c (08/10/2024 10:18 AM EDT) Hemoglobin A1c 5.9 <6.0 % [facility] Comment:Hemoglobin A1C Refer ence Range Adults: 4.8 - 6.0 % Non diabetic: < 6.0 % Goal: < 7.0 %Additional Action Suggested: > 8.0 %Note: Hemoglobin A1c results are invalid for patients with abnormal amounts of HbF. Blood transfusions may impact the HbA1c concentration in the patient sample. Estimated Average Glucose 123 mg/dL [facility] Comment:eAG = Estimated ave rage glucose which is %A1C expressed asaverage glucose, using the formula of the G4Y-FvgsjhvCttyoat Glucose study (ADAG), Diabetes Care, Vol.31,#8,2007 Blood Venous blood specimen / Unknown 08/10/2024 10:18 AM EDT 08/10/2024 11:34 AM EDT us Georgi Alarcon MD LAB BLOOD ORDERABLES Final Resul t [facility] [address] [place] [phone] * (ABNORMAL) Comprehensive Metabolic Panel (08/10/2024 10:18 AM EDT) Sodium 140 135 - 145 mmol/L [facility] Potassium 3.7 3.3 - 5.1 mmol/L [facility] Chloride 101 96 - 108 mmol/L [facility] Carbon Dioxide 29 22 - 29 mmol/L [facility] Anion Gap 14 12 - 20 [facility] Urea Nitrogen (BUN) 19(H) 9 - 16 mg/dL [facility] Creatinine, Serum 0.66 0.5 - 1.4 mg/dL [facility] Estimated Glomerular Filt Rate >60 [facility] Comment:Chronic Kidney Disea se: Estimated GFR < 60 mL/min/[id number] Kidney Disease: Estimated GFR < 15 mL/min/1.73m2 Glucose 137(H) 60 - 115 mg/dL [facility] Calcium 9.3 8.4 - 10.2 mg/dL [facility] Bilirubin, Total 0.6 0.0 - 1.0 mg/dL [facility] Aspartate Amino Transferase 34(H) 5 - 31 U/L [facility] Alanine Aminotransferase 28 0 - 31 U/L [facility] Total Protein 7.0 6.5 - 8.0 g/dL [facility] Albumin Level 4.3 3.5 - 5.0 g/dL [facility] Alkaline Phosphatase 81 39 - 117 U/L [facility] 08/10/2024 10:1 8 AM EDT 08/10/2024 11:42 AM EDT us Generic External Data Provider LAB BLOOD ORDERAB LES Final Result [facility] [address] [place] [phone] * BI Mammogram Screening Tomosynthesis Bilateral (05/30/2024 12:56 PM EST) Anatomical Region Laterality Modality Breast Bilateral Mammography 05/30/2024 12:5 6 PM EST Narrative 06/09/2024 3:55 PM EST ? [facility] ? [address] ?[place] [address] ? Mammography Report ? Signed ? Patient: ChinyereNabila ?MR#: [id number] ?? [id number] ? : 1955 ?Acct:[id number] ? Age/Sex: 69 / F ?ADM Date: 05/30/24 ? Loc: HO.MAMMO ? Attending Dr: Georgi Name MD ? Ordering Physician: Name,Georgi MD ?Results: 1Negative ? Date of Service: 05/30/24 ?Follow Up: 1 Year From Orig ?? inal Mammogram ? Procedure(s): MM tomosynthesis screening BI ?? Accession Number(s): [id number] ? cc: Name,Georgi ? EXAMINATION: ?? MM [...] ??Gabriella Mcpherson DO ??06/09/2024 03:52 PM EST ? Dictated By: ?Gabriella Mcpherson DO ? Signed By: ?<Electronically signed by Gabriella Mcpherson, DO in OV> ? 06/09/24 1552 ? DD/ 1256 ? TD/TT: 05/30/24 1310 ? Deputy Director Of Public Works: ? Procedure Note Rosa, Image - 06/09/2024 [facility] [address] [place] [address] Mammography Report Signed Patient: Nabila Whitlock MMR#: [id number] : 6Acct:[id number] Age/Sex: 69 / FADM Date: 05/30/24 Loc: [facility] Attending Dr: Georgi Alarcon MD Ordering Physician: Georgi Alarconults: 1Negative Date of Service: 05/30/24Follow Up: 1 Year From Orig inal Mammogram Procedure(s): MM tomosynthesis screening BI Accession Number(s): [id number] cc: Georgi Alarcon MD EXAMINATION: MM SCREENING [...] 06/09/24 1552 DD/ 1256 TD/TT: 05/30/24 1310 Deputy Director Of Public Works: Georgi Alarcon MD IMG BI PROCEDURES Final Result * CT Lung Screening Low dose (05/29/2024 5:28 PM EST) Anatomical Region Laterality Modality Lung Computed Tomogra phy 05/29/2024 5:28 PM EST Narrative 05/29/2024 5:29 PM EST ? [facility] ?[address] ?[place] [address] ? CT Scan Report ? Signed ? Patient: Chinyere,Nabila Chong ?MR#: [id number] ?? [id number] ? : 1955 ?Acct:[id number] ? Age/Sex: 69 / F ?ADM Date: 01/27/25 ? Loc: HO.CT ? Attending Dr: Caroline Dupont PA-C ? Ordering Physician: Pat Brown NP ?? Date of Service: 05/29/24 ?? Procedure(s): CT lung screening ?? Accession Number(s): [id number] ? cc: Name,Georgi AUSTIN; Pat Brown NP ? Report Number: ?? [id number]: Total DLP = ?? 95.00 mGy-cm ? CLINICAL HISTORY: F17.210 - Nicotine dependence, cigarettes, uncomplicated ? CT lung cancer screening (LDCT) ? Comparison: CT/SR - CT LUNG SCREENING - 07/16/22 09:55 EDT ?? CT/[place] - CT LUNG SCREENING - 01/24/21 14:10 [...] DD/ 1728 ? TD/TT: 05/29/24 1728 ? Deputy Director Of Public Works: ? Procedure Note Rosa, Image - 05/29/[address] [place] [address] [address] Scan Report Signed Patient: Nabila Whitlock MMR#: [id number] : 6Acct:[id number] Age/Sex: 69 / FADM Date: 05/29/24 Loc: HO.CT Attending Dr: Carolien Dupont PA-C Ordering Physician: Pat Brown NP Date of Service: 05/29/24 Procedure(s): CT lung screening Accession Number(s): [id number] cc: Name,Georgi AUSTIN; Pat Brown NP Report Number: [id number]: Total DLP = 95.00 mGy-cm CLINICAL HISTORY: F17.210 - Nicotine dependence, cigarettes, uncomplicated CT lung cancer screening (LDCT) Comparison: CT/SR - CT LUNG SCREENING - 07/16/22 09:[address]/[place] - CT LUNG SCREENING - 01/24/21 14:10 [...] in OV> 05/29/241728 DD/ 27 TD/TT: 05/29/241727 Deputy Director Of Public Works: [facility] External Provider IMG CT PROCEDURES Final Result * (ABNORMAL) Lipid Panel, Standard (04/14/2024 10:08 AM EST) Triglycerides 214(H) <150 mg/dL [facility] Comment:Slight Lipemia.Kari able Triglyceride: less than 150 mg/dLBorderline High Triglyceride 150-199 mg/dLHigh Triglyceride: 200-499 mg/dLVery High Triglyceride: greater than or equal to 5OO mg/dL Cholesterol 125 <200 mg/dL [facility] Comment:Desirable Cholestero l: less than 200 mg/dLBorderline High Cholesterol: 200-239 mg/dLHigh Cholesterol: greater than 239 mg/dL LDL Cholesterol Calculated 37 <100 mg/dL [facility] Comment:Desirable LDL: less than 100 mg/dLNear Optimal/Above Optimal LDL: 110- 129 mg/dLBorderline High LDL: 130-159 mg/dLHigh LDL: 160-189 mg/dLVery High LDL: greater than or equal to 190 mg/dL HDL Cholesterol 46 >40 mg/dL [facility] Comment:Desirable HDL: great er than 40 mg/dL Note: This HDL assay may give artificially low results in patients with liver disease. Blood Venous blood specimen / Unknown 04/14/2024 10:08 AM EST 04/14/2024 11:04 AM EST us Georgi Alarcon MD LAB BLOOD ORDERABLES Final Resul t [facility] [address] [place], [place] [phone] * HM Hepatitis C Antibody (06/29/2016) Hepatitis C Antibody Nonreactive Blood us Georgi Name HEALTH MAINTENANCE Final Result from Last 3 Months or Most Recently Relevant to Health Maintenance Insurance [employer] MEDICARE ADVANTAGE HMO Care Teams Weather Stripper Relationship Specialty Start Date End Date Name, MD Georgi [address] [place] [address] PCP - General Family Medicine 07/16/20
--- OUTSIDE RECORDS SUMMARY | 2024-08-15 13:18 | XMS_ITS | Encounter Summary ---
Author Organization [employer] Address 75 [facility] 7t [place] [address] Care Team Providers Care Final Assembly Worker Name Role Phone Name, Georgi AUSTIN Primary Care Provider [phone] Encounter Details Date Type Department Care Team (Late st Contact Info) Description 06/05/2022 Orders Only [facility] [address] [place] [address] Jena Lerma LPN Social History Tobacco Use [...] on filedocumented in this encounter Care Teams Final Assembly Worker Relationship Specialty Start Date End Date Name, MD Georgi [address] [place] [address] PCP - General Family Medicine 07/16/20 documented as of this encounter
--- OUTSIDE RECORDS SUMMARY | 2024-08-15 13:18 | XMS_ITS | Encounter Summary ---
Author Organization [employer] Address [address] [facility] [address] [place] [address] Care Team Providers Care Company Laborer Name Role Phone Name, Georgi AUSTIN Primary Care Provider [phone] Encounter Details Date Type Department Care Team (Late st Contact Info) Description 10/05/2022 Abstract [facility] [address] [place] [address] Name, MD Georgi [address] [place] [address] Social History Tobacco Use Types Packs/Day Years [...] on filedocumented in this encounter Care Teams Company Laborer Relationship Specialty Start Date End Date Name, MD Georgi [address] [place] [address] PCP - General Family Medicine 07/16/20 documented as of this encounter
--- OUTSIDE RECORDS SUMMARY | 2024-08-15 13:18 | XMS_ITS | Encounter Summary ---
Author Organization [employer] Address [address] [facility] [address] [place] [address] Care Team Providers Care Linecasting Machine Keyboard Operator Name Role Phone Name, Georgi AUSTIN Primary Care Provider [phone] Reason for Visit * Reason Comments Med Refill Encounter Details Date Type Department Care Team ([facility] st Contact Info) Description 03/24/[address] [facility] [address] [place] [address] Name, MD Georgi [address] [place] [address] Social History Tobacco Use Types Packs/Day Years [...] on filedocumented in this encounter Care Teams Linecasting Machine Keyboard Operator Relationship Specialty Start Date End Date Name, MD Georgi [address] [place] [address] PCP - General Family Medicine 07/16/20 documented as of this encounter
--- OUTSIDE RECORDS SUMMARY | 2024-08-15 13:18 | XMS_ITS | Encounter Summary ---
Author Organization [employer] Address [address] [facility] 7t [place] [address] Care Team Providers Care Chief Power Dispatcher Name Role Phone Name, Georgi AUSTIN Primary Care Provider [phone] Reason for Visit * Reason Comments Follow-up Encounter Details Date Type Department Care Team ([facility] st Contact Info) Description 08/10/2024 9:15 AM EDT Office Visit [facility] [address] [place] [address] Name, MD Georgi [address] [place] [address] Moderate chronic obstructive pulmonary disease (CMS/HCC) (Primary [...] discuss switching to cheaper inhalers with her press and blow machine tender. Tobacco dependence Comments: She is congratulated on [...] Routine Erythrocytosis Expected: 08/10/2024 (Approximate), Expires: 08/10/2025 documented as of this encounter Procedures Procedure Name Priority Date/Time Associated Diagnosis Comments HEMOGLOBIN A1C Routine 08/10/2024 10:18 AM EDT Hyperglycemia documented in this encounter Results * Hemoglobin A1c (08/10/2024 10:18 AM EDT) Hemoglobin A1c 5.9 <6.0 % [facility] Comment:Hemoglobin A1C Refer ence Range Adults: 4.8 - 6.0 % Non diabetic: < 6.0 % Goal: < 7.0 %Additional Action Suggested: > 8.0 %Note: Hemoglobin A1c results are invalid for patients with abnormal amounts of HbF. Blood transfusions may impact the HbA1c concentration in the patient sample. Estimated Average Glucose 123 mg/dL [facility] Comment:eAG = Estimated ave rage glucose which is %A1C expressed asaverage glucose, using the formula of the P7N-GdbngpyLvnghml Glucose study (ADAG), Diabetes Care, Vol.31,#8,Dec. 2007 Blood Venous blood specimen / Unknown 08/10/2024 10:18 AM EDT 08/10/2024 11:34 AM EDT us Georgi Name LAB BLOOD ORDERABLES Final Resul t [facility] [address] [place] [address] [phone] documented in this encounter Visit Diagnoses Diagnosis Moderate chronic obstructive pulmonary disease (CMS/HCC)- Primary Chronic airway obstruction, not elsewhere classified Tobacco dependence Tobacco use disorder History of CVA (cerebrovascular accident) Transient ischemic attack (TIA), and cerebral infarction without residual deficits Erythrocytosis Polycythemia, secondary Hyperglycemia Other abnormal glucose Hypertension, unspecified type Healthcare maintenance documented in this encounter Care Teams Chief Power Dispatcher Relationship Specialty Start Date End Date Name, MD Georgi [address] [place] [id number] PCP - General Family Medicine 07/16/20 documented as of this encounter
--- OUTSIDE RECORDS SUMMARY | 2024-08-15 13:18 | XMS_ITS | Encounter Summary ---
Author Organization [employer] Address [address] [facility] [address] [place] [address] Care Team Providers Care Beauty Counselor Name Role Phone Name, Georgi AUSTIN Primary Care Provider [phone] Reason for Visit * Reason Onset Date Comments Appointment Request 08/07/2024 Encounter Details Date Type Department Care Team ([facility] st Contact Info) Description 08/07/2024 Telephone [facility] [address] [place] [address] Name, MD Georgi [address] [place] [address] Appointment Request Social History Tobacco Use Types [...] calling to verify next upcoming appointment , automobile service writer notify theres no upcoming appointment due to appointment for 08/08 was cancelled. Pt ask why appointment was cancelled . Please return call [phone] documented in this encounter Plan of Treatment Not on file documented as of this encounter Visit Diagnoses Not on filedocumented in this encounter Care Teams Beauty Counselor Relationship Specialty Start Date End Date Name, MD Georgi [address] [place] [address] PCP - General Family Medicine 07/16/20 documented as of this encounter
--- OUTSIDE RECORDS SUMMARY | 2024-08-15 13:18 | XMS_ITS | Encounter Summary ---
Author Organization [employer] Address [address] [facility] [place] [address] Care Team Providers Care Manager Power Name Role Phone Name, Georgi AUSTIN Primary Care Provider [phone] Encounter Details Date Type Department Care Team [...] on filedocumented in this encounter Care Teams Manager Power Relationship Specialty Start Date End Date Name, MD Georgi [address] [place] [address] PCP - General Family Medicine 07/16/20 documented as of this encounter
--- OUTSIDE RECORDS SUMMARY | 2024-08-15 13:18 | XMS_ITS | Encounter Summary ---
Author Organization [employer] Address [address] [facility] 7t [place] [address] Care Team Providers Care Risk Assessment Analyst Name Role Phone Name, Georgi AUSTIN Primary Care Provider [phone] Encounter Details Date Type Department Care Team (Late st Contact Info) Description 05/06/2022 Orders Only [facility] [address] [place] [address] Jena Lerma LPN Social History Tobacco Use [...] on filedocumented in this encounter Care Teams Risk Assessment Analyst Relationship Specialty Start Date End Date Name, MD Georgi [address] [place] [id number] PCP - General Family Medicine 07/16/20 documented as of this encounter
--- OUTSIDE RECORDS SUMMARY | 2024-08-15 13:18 | XMS_ITS | Encounter Summary ---
Author Organization [employer] Address [address] [facility] [address] [place] [address] Care Team Providers Care Development Director Name Role Phone Name, Georgi AUSTIN Primary Care Provider [phone] Reason for Visit * Reason Comments Med Refill Encounter Details Date Type Department Care Team ([facility] st Contact Info) Description 03/23/2023 Refill [facility] [address] [place] [address] Name, MD Georgi [address] [place] [address] Social History Tobacco Use Types Packs/Day Years [...] on filedocumented in this encounter Care Teams Development Director Relationship Specialty Start Date End Date Name, MD Georgi [address] [place] [address] PCP - General Family Medicine 07/16/20 documented as of this encounter
== END 2024-08-15 11:22 | disposition home or self-care (01) ==
LOC: HO.HPS 10:54
PROVIDERS: PCP Internal Medicine Geriatric Medicine; Visit Provider Internal Medicine
DX: F17.210 Nicotine dependence, cigarettes, uncomplicated (principal); J44.9 Chronic obstructive pulmonary disease, unspecified; R09.02 Hypoxemia; D45 Polycythemia vera
CPT/HCPCS: 99213

== ENCOUNTER → 2024-08-15 10:54 | Outpatient (BNVA) | payer MEDICARE, SELFPAY | PROVIDERS: PCP Internal Medicine Geriatric Medicine; Visit Provider Internal Medicine | DX: J44.9 Chronic obstructive pulmonary disease, unspecified (principal); R09.02 Hypoxemia; D45 Polycythemia vera; F17.210 Nicotine dependence, cigarettes, uncomplicated | CPT/HCPCS: 99212 ==

== ENCOUNTER 2024-12-18 10:48 | Outpatient (AMB) | payer MEDICARE, SELFPAY ==
[2024-12-18 11:11] VITALS: BP 120/70; PULSE 74; O2SAT 93; BMI 31.9
--- NOTE | 2024-12-18 11:11 | MHC.OFFVIS ---
Vital Signs 12/18/24 11:11 Height 5 ft 2 in Weight 174 lb 2.643 oz BMI 31.9 BP 120/70 Blood Pressure Location Lt brachial Position Sitting Pulse 74 Pulse Source Pulse Oximeter Pulse Oximetry (%) 93 Oxygen Delivery Method Room Air Intake Visit Reasons: COPD Intake Note: pt is here for follow up and states her breathing is tuff with weather, she stays in. [employer] Required: No Allergies No Known Allergies (No Known Allergies*) Allergy (Verified 12/18/24 11:31) Medication List - Last Reconciled 12/18/24 by Corazon Posey MD albuterol sulfate 90 mcg/actuation 2 puffs PO Q4-6H PRN aspirin (Adult Low Dose Aspirin) 81 mg PO DAILY atorvastatin (Lipitor) 80 mg PO DAILY fluticasone furoate-vilanterol 200-25 mcg/dose (Breo Ellipta) 1 ea PO DAILY hydrochlorothiazide 1 tab PO DAILY ipratropium-albuterol 0.5 mg-3 mg(2.5 mg base)/3 mL 3 mL inhalation Q6H PRN 30 days lisinopril 1 tab PO DAILY sertraline 100 mg PO DAILY tiotropium bromide 1.25 mcg/actuation (Spiriva Respimat) 2 puffs PO DAILY 30 days Do you need a note to return to daycare/school/sports/work: No HPI HPI COPD: Details: 69 YEARS OLD FEMALE IS HERE FOR FOLLOW-UP FOR COPD . CLAIMS THAT SHE IS DOING FAIRLY WELL EXCEPT THAT ON HOT AND HUMID DAYS HER BREATHING GETS WORSE. SHE CONTINUES TO USE BREO AND SPIRIVA RESPIMAT, AND SOMETIMES HAS TO USE THE IPRATROPIUM-ALBUTEROL SOLUTION IN THE NEBULIZER. SMOKES 1 OR 2 CIGARETTES A DAY. SHE IS PARTICIPATING IN ANNUAL LUNG SCREENING PROGRAM. [facility] Medical History Hypoxemia History of CVA (cerebrovascular accident) (~2021) Polycythemia vera Hypertension COPD (chronic obstructive pulmonary disease) Nicotine dependence, cigarettes, uncomplicated Colon polyps Depression Surgical History History of colonoscopy Family History Mother Diabetes Colon cancer Father Diabetes Emphysema lung Social History Household Members: Children Housing: Apartment Are you a primary career services coordinator to a significant other at home: No Do you presently have visiting nurse or other home services: No Alcohol intake: never Patient Tobacco Use Status: Former Tobacco user Tobacco use type: Cigarette Cigarette Packs Per Day: 1 Years Smoked: 38 (onset 27 ,1ppd x 38yrs, 35+PYH) Advance Directives Date on File: 11/27/21 service: No Current occupational status: disabled Review of Systems Const All systems reviewed & are unremarkable except as noted in HPI and below ENT Reports no additional complaints Card Denies chest pain, Denies irregular heart rhythm and Denies leg edema Resp Reports as per HPI GI Reports no additional complaints Reports no additional complaints Musc Reports no additional complaints and Reports abnormal gait (Slightly on stable , and she has to be careful, after her stroke.) Skin/Breast Reports system reviewed and no additional complaints, except as documented Neuro Reports no additional complaints and Reports abnormal gait (Slightly on stable , and she has to be careful, after her stroke.) Psych Reports anxiety and Reports depression (Mild, mostly recovered.) Endo Reports no additional complaints Aller/Immun Reports no additional complaints Physical Exam Vital Signs: Last Vital Signs Pulse 74 12/18/24 11:11 BP 120/70 12/18/24 11:11 Pulse Ox 93 12/18/24 11:11 Oxygen Delivery Method Room Air 12/18/24 11:11 BMI result Body Mass Index 31.9 Slightly reddish face , no respiratory distress, Const General: comfortable, no acute distress, alert and awake Orientation/consciousness: patient oriented x3 HEENT Head: Yes normal to inspection General nose exam: No nasal polyps present and No nasal discharge present Face and sinus: Yes sinuses nontender Mouth: oropharynx normal Throat: Yes posterior oropharynx normal Eyes General: appearance normal, both eyes and all related structures Neck Neck: Yes normal visual inspection, Yes no lymphadenopathy, Yes trachea midline and Yes no JVD Thyroid: Thyroid normal Chest Chest palpation & inspection: normal inspection of the chest, normal palpation of entire chest wall and no tenderness Resp Other: Percussion note resonant, breath sounds are distant with prolonged. expiratory phase No rhonchi or wheezes are heard today. Cardio Palpation: normal PMI Rate: regular rate Rhythm: regular rhythm Heart sounds: no gallops and no murmurs GI Palpation (GI): Soft to palpation, nontender, No hepatosplenomegaly present and no masses Auscultation: normal bowel sounds Back/Spine/Pelvis Thoracic/Lumbar Spine: thoracic and lumbar spine normal to inspection Skin General skin exam: no rashes or lesions noted Neuro General: patient oriented x3, gait normal (Normal except that she is slightly on stable if she moves fast) and no focal motor deficits Cranial nerves: Yes CN's II-XII intact bilaterally Extrem General: Yes normal to inspection, Yes no clubbing, cyanosis or edema and Yes no calf tenderness Psych Mental Status: mental status grossly normal and other (Slightly depressed) Speech and movement: Normal speech and movement present Assessment & Plan Assessment & Plan (1) COPD (chronic obstructive pulmonary disease): Comment: (Moderate/Severe COPD, smoking related - Confirmed by pulmonary function test. A good response to bronchodilator therapy is consistent with Asthma/Copd overlap syndrome. She claims that she is doing well on the current medical regimen. Main complaint was the yeboah of the inhalers, Code(s): J44.9 - Chronic obstructive pulmonary disease, unspecified Category: Medical Plan: CONTINUE USING BREO 200-251 INHALATION DAILY SPIRIVA RESPIMAT 1.25 2 INHALATIONS DAILY. AND USE IPRATROPIUM-ALBUTEROL SOLUTION IN THE NEBULIZER Q 4-6 HOURS P.R.N. (2) Nicotine dependence, cigarettes, uncomplicated: Comment: (onset 26, 1ppd x 39yrs, now 1-2cig/day - 35+PYH), claims that she has quit smoking ,since the start of this year . Code(s): F17.210 - Nicotine dependence, cigarettes, uncomplicated Category: Medical Plan: COMMENDED FOR HAVING QUIT SMOKING COMPLETELY. ADVISED THAT SHE SHOULD NOT GO BACK TO SMOKING. (3) Polycythemia vera: Comment: (dx 2017 - likely secondary to Smoking/COPD - Lately has had no phlebotomy . Lost CBC ON 08/10/2024 Hb /Hct 16.9/50 .4 Code(s): D45 - Polycythemia vera Category: Medical Plan: ADVISED THE PATIENT TO CONTINUE FOLLOW-UP WITH HEMATOLOGY SERVICE. Coding Level of Care Code Est Pt Level 3 (04855) Diagnoses COPD (chronic obstructive pulmonary disease) J44.9 Nicotine dependence, cigarettes, uncomplicated F17.210 Polycythemia vera D45
--- OUTSIDE RECORDS SUMMARY | 2024-12-18 11:48 | XMS_ITS | Clinical Summary ---
Author Organization [facility] Address [address] [place] [address] Phone Care Team Providers Care Supervisor Cleaning And Annealing Name Role Phone Pcp, Unknown Primary Care Provider Unavailabl e Allergies No known active allergies Social History Tobacco Use Types Packs/Day Years Used Date Smoking Tobacco: Never Assessed Comments Unknown Sex and Gender Information Value Date Recorded Sex Assigned at Not on file Legal Sex Female 9:54 PM EDT Gender Identity Not on file Sexual Orientation Not on file Last Filed Vital Signs Vital Sign Reading Time Taken Comments Blood Pressure 134/86 12/24/2021 9:07 PM EDT Pulse 90 12/24/2021 9:07 PM EDT Temperature 37 C (98.6 F) 12/24/2021 9:07 PM EDT Respiratory Rate 18 12/24/2021 9:07 PM EDT Oxygen Saturation 100% 12/24/2021 9:07 PM EDT Inhaled Oxygen Concentration - - Weight - - Height - - Body Mass Index - - Plan of Treatment Not on file Medical Devices Not on file Insurance [place] [id number] [employer] MED[employer] PART A & B [employer] PART [facility] & [place] [facility] [place] [facility] [place] [facility] B [facility] Care Teams Supervisor Cleaning And Annealing Relationship Specialty Start Date End Date Pcp, Unknown PCP - General 12/24/21 Additional Source Comments The information contained in this document represents components of the legal health record. It is not the complete legal health record.[facility]
--- OUTSIDE RECORDS SUMMARY | 2024-12-18 11:48 | XMS_ITS | Encounter Summary ---
Author Organization [email or web address] Address [address] [facility] [address] [place] [address] Care Team Providers Care Mixed Crop And Livestock Farmer Name Role Phone Name, Georgi AUSTIN Primary Care Provider [phone] Reason for Visit * Reason Comments Med Refill Encounter Details Date Type Department Care Team ([facility] st Contact Info) Description 03/24/2023 Refill [facility] [address] [place] [address] Name, MD Georgi [address] [place] [address] Social History Tobacco Use Types Packs/Day Years [...] as of this encounter Plan of Treatment Upcoming Encounters Date Type Department Care Team (Late st Contact Info) Description 02/14/2025 10:30 AM EDT Office Visit [facility] OPTOMETRY [address] [place] [address] Roberto, Ramila, OD [address] [place] [address] documented as of this encounter Visit Diagnoses Not on filedocumented in this encounter Care Teams Mixed Crop And Livestock Farmer Relationship Specialty Start Date End Date Name, MD Georgi [address] [place] [address] PCP - General Family Medicine 07/16/20 documented as of this encounter
== END 2024-12-18 11:29 | disposition home or self-care (01) ==
LOC: HO.HPS 10:49
PROVIDERS: PCP Internal Medicine Geriatric Medicine; Visit Provider Internal Medicine
DX: J44.9 Chronic obstructive pulmonary disease, unspecified (principal); F17.210 Nicotine dependence, cigarettes, uncomplicated; D45 Polycythemia vera
CPT/HCPCS: 99213

== ENCOUNTER → 2024-12-18 10:48 | Outpatient (BNVA) | payer MEDICARE, SELFPAY | PROVIDERS: PCP Internal Medicine Geriatric Medicine; Visit Provider Internal Medicine | DX: J44.9 Chronic obstructive pulmonary disease, unspecified (principal); D45 Polycythemia vera; F17.210 Nicotine dependence, cigarettes, uncomplicated | CPT/HCPCS: 99212 ==